=== PATIENT | female | born 2000 | race Caucasian/White ===

== ENCOUNTER 2025-08-06 15:20 | Outpatient (OUT) | payer OTHER, SELFPAY ==
--- OUTSIDE RECORDS SUMMARY | 2025-07-23 09:00 | XMS_ITS | Encounter Summary ---
Author Organization [facility] Address [address] [place] [address] Care Team Providers Care Change Control Manager Name Role Phone Geni Piedra DO Primary Care Provider [phone] Encounter Details Date Type Department Care Team (Latest Contact Info) Description 07/23/2025 9:00 AM EDT Ancillary Procedure [facility] [address] [place] [address] Size of fetus inconsistent with dates in second trimester ([facility]) Social History Tobacco Use Types Packs/Day Years Used Date Smoking Tobacco: Never Alcohol Use Standard Drinks/Week Comments Not Currently 0 (1 standard drink = 0.6 oz pure alcohol) caffeine intake: 1 coffee/day Estimated Date of Delivery Comme nts Yes 10/02/2025 Based on last me nstrual period of 12/26/2024 Sex and Gender Information Value Date Recorded Sex Assigned at Not on file Legal Sex Female 6:52 PM EDT Gender Identity Not on file Sexual Orientation Not on file Occupation Industry Job Start Date Job End Date Not on file Not on file Not on file Not on file documented as of this encounter Plan of Treatment Upcoming Encounters Date Type Department Care Team (Late st Contact Info) Description 08/20/2025 1:50 PM EDT Routine [facility] [address] [place] [address] Flavia Zhu, MARCUS [address] [place] [address] 09/04/2025 1:00 PM EDT Ancillary Procedure [facility] [address] [place] [address] documented as of this encounter Goals Goal Patient Goal Type Associated Problems Recent Progress Patient-Stated? Author Reminders Care Plan OB Reminders Alexandra Means RN documented as of this encounter Procedures Procedure Name Priority Date/Time Associated Diagnosis Comments US OB FOLLOW UP TRANSABDOMINAL APPROACH Routine 07/23/2025 9:18 AM EDT Size of fetus inconsistent with dates in second trimester ([facility]) documented in this encounter Results * US OB follow up transabdominal approach (07/23/2025 9:18 AM EDT) Anatomical Region Laterality Modality Body Ultrasound 07/24/2025 10:5 2 AM EDT Impressions 07/24/2025 11:40 AM EDT Single, live intrauterine , current sonographic age of 30 weeks and 6 days, with an estimated date of delivery of September 25, 2025. * Estimated Weight (g) by Percentile is based upon an accurate estimated age based on last menstrual period. TRANSCRIBED BY: ELECTRONICALLY SIGNED BY: Joel Coronado MD Narrative 07/24/2025 11:40 AM EDT FINDINGS: A single, live intrauterine is present with normal cardiac rate of 137 beats per minute. Normal activity and amniotic fluid volume. Amniotic fluid index is 12 cm. Morphology is grossly normal. The cervix is not seen due to positioning. The current sonographic age is 30 weeks and 6 days, based on the following measurements: BPD 7.8 cm (31 weeks, 1 day) Head Circumference 28.0 cm (30 weeks, 4 days) Abdominal Circumference 26.6 cm (30 weeks, 5 days) Femur Length 5.9 cm (30 weeks, 6 days) Presentation Cephalic Weight (g) by Percentile 70.0 % * These measurements result in an estimated date of delivery of September 25, 2025. The current estimated weight is 1635 grams (3 pounds, 10 ounces). Procedure Note Joel Coronado MD - 07/24/2025 FINDINGS: A single, live intrauterine is present with normal cardiacrate of 137 beats per minute. Normal activity and amniotic fluidvolume. Amniotic fluid index is 12 cm. Morphology is grossly normal. Thecervix is not seen due to positioning. The current sonographic ageis 30 weeks and 6 days, based on the following measurements: BPD 7.8 cm (31 weeks, 1 day) Head Circumference 28.0 cm (30 weeks, 4 days) Abdominal Circumference 26.6 cm (30 weeks, 5 days) Femur Length 5.9 cm (30 weeks, 6 days) Presentation Cephalic Weight (g) by Percentile 70.0 % * These measurements result in an estimated date of delivery of September. The current estimated weight is 1635 grams (3 pounds, 10ounces). IMPRESSION: Single, live intrauterine , current sonographic age of 30 weeksand 6 days, with an estimated date of delivery of September 25, 2025. * Estimated Weight (g) by Percentile is based upon an accurateestimated age based on last menstrual period. TRANSCRIBED BY: ELECTRONICALLY SIGNED BY: Joel Coronado MD us Eva FABIAN IMPolly OB US PROCEDURES Final Resul t documented in this encounter Visit Diagnoses Diagnosis Size of fetus inconsistent with dates in second trimester ([facility]) documented in this encounter Additional Health Concerns Active Problems Noted Date Diagnosed Date OB Reminders 01/29/2025 documented as of this encounter Care Teams Change Control Manager Relationship Specialty Start Date End Date Geni Piedra DO [address] [place] [address] PCP - General Internal Medicine 06/07/25 documented as of this encounter
--- OUTSIDE RECORDS SUMMARY | 2025-07-23 09:50 | XMS_ITS | Encounter Summary ---
Author Organization [facility] Address [address] [place] [address] Care Team Providers Care Flaking Roll Operator Name Role Phone DamionGeni bocanegra Primary Care Provider [phone] Reason for Visit * Reason Comments Routine Visit Encounter Details Date Type Department Care Team (Late st Contact Info) Description 07/23/2025 9:50 AM EDT Routine [facility] [place] [facility] [address] [place] [address] Flavia Zhu, MARCUS [address] [place] [address] Third trimester ([facility]); 29 weeks gestation of ([facility]) Social History Tobacco Use Types Packs/Day Years [...] on file documented as of this encounter Last Filed Vital Signs Vital Sign Reading Time Taken Comments Blood Pressure 110/68 07/23/2025 9:23 AM EDT Pulse - - Temperature - - Respiratory Rate - - Oxygen Saturation - - Inhaled Oxygen Concentration - - Weight 55.8 kg (123 lb) 07/23/2025 9:23 AM EDT Height - - Body Mass Index 20.47 06/30/2021 12:00 PM EDT documented in this encounter Progress Notes * Hedy Nam, VIROLOGIST - 07/23/2025 9:50 AM EDT Reason for Appointment: Patient ID: Renny Kowalski is a 24 y.o. female who presents for Routine Visit Patient presents today for Return OB appointment. MEDICATIONS Current Outpatient Medications Medication Instructions ondansetron (ZOFRAN) 4 mg, Every 6 hours MV-Min-Fe Fum-FA-DHA ( 1 PO) 1 tablet, Daily ALLERGIES No Known Allergies PROBLEMS Active Ambulatory Problems Diagnosis Date Noted No Active Ambulatory Problems Resolved Ambulatory Problems Diagnosis Date Noted No Resolved Ambulatory Problems Past Medical History: Diagnosis Date Vaccine for VZV (varicella-zoster virus) HISTORY PAST MEDICAL HISTORY SOCIAL HISTORY Past Medical History: Diagnosis Date Vaccine for VZV (varicella-zoster virus) Social History Tobacco Use Smoking status: Never Smokeless tobacco: Not on file Vaping Use Vaping status: Never Used Substance Use Topics Alcohol use: Not Currently Comment: caffeine intake: 1 coffee/day Drug use: Never FAMILY HISTORY Family History Problem Relation Name Age of Onset No Known Problems Mother No Known Problems Father No Known Problems Sister No Known Problems Daughter Melanoma Maternal Grandfather Diabetes Paternal Grandfather SURGICAL HISTORY Past Surgical History: Procedure Laterality Date TONSILLECTOMY [age] y.o. REVIEW OF SYSTEMS Review of Systems: Review of Systems Constitutional: Negative. HENT: Negative. Eyes: Negative. Respiratory: Negative. Cardiovascular: Negative. Gastrointestinal: Negative. Genitourinary: Negative. Musculoskeletal: Negative. Skin: Negative. Neurological: Negative. All other systems reviewed and are negative. Hematological: Negative. Endocrine: Negative. Allergic/Immunologic: Negative. OBJECTIVE Objective: Physical Exam Constitutional: Appearance: Normal appearance. She is well-developed. Cardiovascular: Rate and Rhythm: Normal rate and regular rhythm. Pulmonary: Effort: Pulmonary effort is normal. Breath sounds: Normal breath sounds. Abdominal: General: Bowel sounds are normal. There is no distension. Palpations: Abdomen is soft. Tenderness: There is no abdominal tenderness. There is no guarding or rebound. Musculoskeletal: General: No swelling. Normal range of motion. Right lower leg: No edema. Left lower leg: No edema. Neurological: Mental Status: She is alert and oriented to person, place, and time. Skin: General: Skin is warm and dry. Psychiatric: Mood and Affect: Mood normal. Behavior: Behavior normal. Vitals and nursing note reviewed. Exam conducted with a manager billing present. Vitals: Estimated body mass index is 20.47 kg/m?? as calculated from the following: Height as of 06/30/21: 5' 5 . Weight as of this encounter: 123 lb. BP: 110/68 Patient's last menstrual period was 12/26/2024. ASSESSMENT & PLAN ICD-10-CM 1. Third trimester ([facility]) Z34.93 POCT urinalysis dipstick manually resulted 2. 29 weeks gestation of ([facility]) Z3A.29 Patient presents today for a routine obstetrics appointment. Patient is currently 29w6d with a Estimated Date of Delivery: 10/02/25. Patient had follow up scan done prior to appointment today. Patient has no complaints at this time. Patient to return to clinic in 2-3 weeks. Patient voiced occasional heartburn and nausea. Patient voiced she did have vomiting yesterday and has medication at home. Questions in regards to RSV vaccine. Will discuss with Dr. Nolen and reach back out to patient. Documented by Hedy Nam LPN on behalf of: Flavia Zhu NP documented in this encounter Plan of Treatment Upcoming Encounters Date Type Department Care Team (Late st Contact Info) Description 08/20/2025 1:50 PM EDT Routine [facility] [address] [place] [address] Flavia Zhu NP [address] [place] [address] 09/04/2025 1:00 PM EDT Ancillary Procedure [facility] [address] [place] [address] documented as of this encounter Goals Goal Patient Goal Type Associated Problems Recent Progress Patient-Stated? Author Reminders Care Plan OB Reminders No Alexandra Wang RN documented as of this encounter Procedures Procedure Name Priority Date/Time Associated Diagnosis Comments POCT URINALYSIS DIPSTICK Routine 07/23/2025 9:27 AM EDT Third trimester ([facility]) documented in this encounter Results * POCT urinalysis dipstick manually resulted (07/23/2025 9:27 AM EDT) Color, UA Yellow Clarity, UA Clear Glucose, UA Negative Negative - 2000(110) ++++ mg/dL Bilirubin, UA Negative Negative - 4(70) +++ mg/dL Ketones, UA Negative Negative - 160(16) ++++ mg/dL Spec Grav, UA 1.015 1 - 1.03 Blood, UA Negative Negative - 50 Zhen/mcL pH, UA 6.0 5 - 9 Protein, UA Negative Negative - 2000(20) ++++ mg/dL Urobilinogen, UA 0.2 0.2 - 12 mg/dL Leukocytes, UA Negative Negative - 500+++ Gucci/mcL Nitrite, UA Negative Negative - Positive Urine 07/23/2025 9:27 AM EDT Flavia Zhu NP POINT OF CARE TEST ENTER/EDIT ORDERABLES Final Result documented in this encounter Visit Diagnoses Diagnosis Third trimester ([facility]) state, incidental 29 weeks gestation of ([facility]) documented in this encounter Additional Health Concerns Active Problems Noted Date Diagnosed Date OB Reminders 01/29/2025 documented as of this encounter Care Teams Flaking Roll Operator Relationship Specialty Start Date End Date Geni Piedra DO [address] [place] [address] PCP - General Internal Medicine 06/07/25 documented as of this encounter
--- OUTSIDE RECORDS SUMMARY | 2025-08-06 14:20 | XMS_ITS | Encounter Summary ---
Author Organization [facility] Address [address] [place] [address] Care Team Providers Care Medical Data Entry Clerk Name Role Phone JeromeGeni carias Primary Care Provider [phone] Reason for Visit * Reason Comments Routine Visit Encounter Details Date Type Department Care Team (Latest Contact Info) Description 08/06/2025 2:20 PM EDT Routine [facility] [place] [facility] [address] [place] [address] Mitchel Nolen DO [address] [place] [address] size inconsistent with dates ([facility]) (Primary Dx); Third trimester ([facility]); 31 weeks gestation of ([facility]) Social History Tobacco Use Types Packs/Day Years [...] Sign Reading Time Taken Comments Blood Pressure 110/64 08/06/2025 2:39 PM EDT Pulse - - Temperature - - Respiratory Rate - - Oxygen Saturation - - Inhaled Oxygen Concentration - - Weight 57.2 kg (126 lb) 08/06/2025 2:39 PM EDT Height - - Body Mass Index 20.97 06/30/2021 12:00 PM EDT documented in this encounter Progress Notes * Flavia Zhu NP - 08/06/2025 2:20 PM EDT Reason for Appointment: Patient ID: Renny [...] nursing note reviewed. Exam conducted with a body former present. Vitals: Estimated body mass index is 20.97 kg/m?? as calculated from the following: Height as of 06/30/21: 5' 5 . Weight as of this encounter: 126 lb. BP: 110/64 Patient's last menstrual period was 12/26/2024. ASSESSMENT & PLAN ICD-10-CM 1. Third trimester ([facility]) Z34.93 POCT urinalysis dipstick manually resulted 2. 31 weeks gestation of ([facility]) Z3A.31 Return OB: Patient presents today for a routine obstetrics appointment. Patient is currently 31w6d . Patient states she is doing well but has complaints of being tired due to current . Patient has verbalizes frequent movement. labor precautions was discussed/given and patient was instructed to perform kick counts three times a day. Orders Placed This Encounter Procedures POCT urinalysis dipstick manually resulted Follow Up: Patient reports increased pressure and decreased movement. Plan for cervical length and NST and BPP today. Patient is to return to office in 2 week for routine OB appointment. Documented by Flavia Zhu NP on behalf of: Mitchel Nolen DO documented in this encounter Plan of Treatment Upcoming Encounters Date Type Department Care Team (Late st Contact Info) Description 08/20/2025 1:50 PM EDT Routine [facility] [address] [facility] [place] [address] Flavia Zhu NP [address] [place] [address] 09/04/2025 1:00 PM EDT Ancillary Procedure [facility] [address] [place] [address] Scheduled Orders Name Type Priority Associated Diagnoses Orde r Schedule US OB follow up transabdominal approach Imaging Routine size inconsistent with dates ([facility]) Expected: 08/06/2025, Expires: 12/06/2025 documented as of this encounter Goals Goal Patient Goal Type Associated Problems Recent Progress Patient-Stated? Author Reminders Care Plan OB Reminders No Alexandra Wang RN documented as of this encounter Procedures Procedure Name Priority Date/Time Associated Diagnosis Comments POCT URINALYSIS DIPSTICK Routine 08/06/2025 2:43 PM EDT Third trimester ([facility]) documented in this encounter Results * (ABNORMAL) POCT urinalysis dipstick manually resulted (08/06/2025 2:43 PM EDT) Color, UA Yellow Clarity, UA Clear Glucose, UA 1+ Negative - 2000(110) ++++ mg/dL Bilirubin, UA Negative Negative - 4(70) +++ mg/dL Ketones, UA Negative Negative - 160(16) ++++ mg/dL Spec Grav, UA 1.015 1 - 1.03 Blood, UA Negative Negative - 50 Zhen/mcL pH, UA 6.0 5 - 9 Protein, UA Negative Negative - 2000(20) ++++ mg/dL Urobilinogen, UA 1.0 0.2 - 12 mg/dL Leukocytes, UA Negative Negative - 500+++ Gucci/mcL Nitrite, UA Negative Negative - Positive Urine 08/06/2025 2:43 PM EDT Mitchel Nolen DO POINT OF CARE TEST ENTER/EDIT OR DERABLES Final Result documented in this encounter Visit Diagnoses Diagnosis size inconsistent with dates ([facility])- Primary Third trimester ([facility]) state, incidental 31 weeks gestation of ([facility]) documented in this encounter Additional Health Concerns Active Problems Noted Date Diagnosed Date OB Reminders 01/29/2025 documented as of this encounter Care Teams Medical Data Entry Clerk Relationship Specialty Start Date End Date Geni Piedra DO [address] [place] [address] PCP - General Internal Medicine 06/07/25 documented as of this encounter
--- OUTSIDE RECORDS SUMMARY | 2025-08-06 15:29 | XMS_ITS | Encounter Summary ---
Author Organization [facility] Address [address] [place] [address] Care Team Providers Care Boilermaking Supervisor Name Role Phone Geni Piedra Primary Care Provider [phone] Encounter Details Date Type Department Care Team (Late st Contact Info) Description 08/06/2025 Bamboo flowsheet [facility] [address] [place] [address] Mitchel Nolen DO [address] [place], [facility] Social History Tobacco Use Types Packs/Day Years [...] Info) Description 08/20/2025 1:50 PM EDT Routine [facility] [address] [place] [address] Flavia Zhu NP [address] [place] [address] 09/04/2025 1:00 PM EDT Ancillary Procedure [facility] [address] [facility] [place] [address] documented as of this encounter Goals Goal Patient Goal Type Associated Problems Recent Progress Patient-Stated? Author Reminders Care Plan OB Reminders Alexandra Means RN documented as of this encounter Visit Diagnoses Not on filedocumented in this encounter Additional Health Concerns Active Problems Noted Date Diagnosed Date OB Reminders 01/29/2025 documented as of this encounter Care Teams Boilermaking Supervisor Relationship Specialty Start Date End Date Geni Piedra DO [address] [place] [address] PCP - General Internal Medicine 06/07/25 documented as of this encounter
--- OUTSIDE RECORDS SUMMARY | 2025-08-06 15:29 | XMS_ITS | Encounter Summary ---
Author Organization [facility] Address [address], [address] [place] [address] Care Team Providers Care Program Control Analyst Name Role Phone Geni Piedra Primary Care Provider Encounter Details Date Type Department Care Team (Late st Contact Info) Description 02/09/2025 Orders Only [facility] [address] [place] [address] Provider, MD Jeet Social History Tobacco Use Types Packs/Day Years Used Date Smoking Tobacco: Never Passive Smoke Exposure: Yes Smokeless Tobacco: Never Alcohol Use Standard Drinks/Week Comments No 0 (1 standard drink = 0.6 oz pur e alcohol) Overall Financial Resource Strain (CARDIA) Answe r Date Recorded How hard is it for you to pa y for the very basics like food, housing, medical care, and heating? Not hard at all 03/24/2024 PHQ-2 Answer Date Recorded PHQ-9 Total Score 0 03/24/2024 Hunger Vital Sign Answer Date Recorded Within the past 12 months, y ou worried that your food would run out before you got the money to buy more. Never true 03/24/20 24 Within the past 12 months, t he food you bought just didn't last and you didn't have money to get more. Never true 03/24/2024 PRAPARE - Transportation Answer Date Re corded Lack of Transportation (Medical) Not on file 03/24/2024 In the past 12 months, has l ack of transportation kept you from meetings, work, or from getting things needed for daily living? No 03/24/2024 Housing Stability Vital Sign Answer Nathan e Recorded Unable to Pay for Housing in the Last Year Not o n file 03/24/2024 Number of Places Lived in the Last Year Not on f ile 03/24/2024 In the last 12 months, was t here a time when you did not have a steady place to sleep or slept in a senior living (including now)? No 03/24/2024 Food Insecurity Answer Date Recorded Within the past 12 months, y ou worried that your food would run out before you got the money to buy more. 1 03/24/2024 Within the past 12 months, t he food you bought just didn't last and you didn't have money to get more. 1 03/24/2024 Comments Unknown Sex and Gender Information Value Date Recorded Sex Assigned at Female 01/31/2021 10:22 PM EDT Legal Sex Female 10:14 AM EST Gender Identity Female 01/31/2021 10:22 PM EDT Sexual Orientation Straight 01/31/2021 10 :22 PM EDT documented as of this encounter Plan of Treatment Not on file documented as of this encounter Procedures Procedure Name Priority Date/Time Associated Diagnosis Comments LAB RESULT Routine 02/08/2025 6:15 AM EDT documented in this encounter Results * LAB RESULT (02/08/2025 6:15 AM EDT) us Historical Provider CHEMISTRY ORDERABLES Danielle l Result documented in this encounter Visit Diagnoses Not on filedocumented in this encounter Care Teams Program Control Analyst Relationship Specialty Start Date End Date Geni Piedra DO [address] [place] [address] PCP - General 02/03/16 documented as of this encounter
--- OUTSIDE RECORDS SUMMARY | 2025-08-06 15:29 | XMS_ITS | Encounter Summary ---
Author Organization [facility] Address [address], [address] [place] [address] Care Team Providers Care Vp Celebrity Services Name Role Phone Geni Piedra Primary Care Provider Encounter Details Date Type Department Care Team (Late st Contact Info) Description 06/13/2025 Orders Only [facility] [address] [place] [address] Provider, MD Jeet Social History [...] place to sleep or slept in a [facility] (including now)? No 03/24/2024 Food Insecurity Answer [...] Date/Time Associated Diagnosis Comments LAB RESULT Routine 06/13/2025 2:10 PM EDT documented in this encounter Results * LAB RESULT (06/13/2025 2:10 PM EDT) us Historical Provider CHEMISTRY ORDERABLES Danielle l Result documented in this encounter Visit Diagnoses Not on filedocumented in this encounter Care Teams Vp Celebrity Services Relationship Specialty Start Date End Date Geni Piedra DO [address] [place] [address] PCP - General 02/03/16 documented as of this encounter
--- OUTSIDE RECORDS SUMMARY | 2025-08-06 15:29 | XMS_ITS | Encounter Summary ---
Author Organization [facility] Address [address], [address] [place] [address] Care Team Providers Care Crew Boat Operator Name Role Phone Geni Piedra Primary Care Provider Encounter Details Date Type Department Care Team (Late st Contact Info) Description 02/21/2025 Orders Only [facility] [address] [place] [address] Provider, MD Jeet Social History [...] place to sleep or slept in a assisted (including now)? No 03/24/2024 Food Insecurity Answer [...] Procedure Name Priority Date/Time Associated Diagnosis Comments HM PAP SMEAR Routine 02/14/2025 6:25 AM EDT documented in this encounter Results * HM PAP SMEAR (02/14/2025 6:25 AM EDT) Historical Provider HEALTH MAINTENANCE Final Result documented in this encounter Visit Diagnoses Not on filedocumented in this encounter Care Teams Crew Boat Operator Relationship Specialty Start Date End Date Geni Piedra DO [address] [place] [address] PCP - General 02/03/16 documented as of this encounter
--- OUTSIDE RECORDS SUMMARY | 2025-08-06 15:30 | XMS_ITS | Encounter Summary ---
Author Organization [facility] Address [address] [place] [address] Care Team Providers Care Gunite Mixer Name Role Phone Geni Piedra DO Primary Care Provider [phone] Encounter Details Date Type Department Care Team (Late st Contact Info) Description 07/23/2025 Telephone [facility] [address] [place] [address] [place] [address] Hedy Nam LPN Social History Tobacco Use Types Packs/Day Years [...] on file documented as of this encounter Miscellaneous Notes * Telephone Encounter - Hedy Nam LPN - 07/23/2025 10:05 AM EDT Will discuss with Dr. Nolen and reach back out to patient. documented in this encounter Plan of Treatment Upcoming Encounters Date Type Department Care Team (Late st Contact Info) Description 08/20/2025 1:50 PM EDT Routine [facility] [address] [facility] [place] [address] Flavia Zhu, MARCUS [address] [facility] [place] [address] 09/04/2025 1:00 PM EDT Ancillary Procedure [facility] [address] [facility] [place] [address] documented as of this encounter Goals Goal Patient Goal Type Associated Problems Recent Progress Patient-Stated? Author Reminders Care Plan OB Reminders Alexandra Means RN documented as of this encounter Visit Diagnoses Not on filedocumented in this encounter Additional Health Concerns Active Problems Noted Date Diagnosed Date OB Reminders 01/29/2025 documented as of this encounter Care Teams Gunite Mixer Relationship Specialty Start Date End Date Geni Piedra DO [address] [place] [address] PCP - General Internal Medicine 06/07/25 documented as of this encounter
--- OUTSIDE RECORDS SUMMARY | 2025-08-06 15:30 | XMS_ITS | Clinical Summary ---
Author Organization [facility] Address [address] [place] [address] Care Team Providers Care Facing Grinder Name Role Phone Geni Piedra Primary Care Provider [phone] Allergies No known active allergies Medications ondansetron (Zofran) 4 MG tablet Take 4 mg by mouth every 6 (six) hours 02/28/2025 Active MV-Min-Fe Fum-FA-DHA ( 1 PO) Take 1 tablet by mouth Daily Active magnesium oxide (Mag-Ox) 400 MG tabletIndication s:Migraine without aura and without status migrainosus, not intractable Take 1 tablet (400 mg) by mouth Daily 30 tablet 6 06/07/2025 07/07/20 25 Encounters Date Type Department Care Team Description 08/06/2025 2:20 [place] [address] Mitchel Nolen DO size inconsistent with dates ([facility]) (Primary Dx); Third trimester ([facility]); 31 weeks gestation of ([facility]) 08/06/2025 [place] [address] Mitchel Nolen DO 07/25/2025 [place] [address] Mitchel Nolen DO 07/23/2025 9:50 AM EDT Routine [facility] [address] [place] [address] Flavia Zhu NP Third trimester ([facility]); 29 weeks gestation of ([facility]) 07/23/2025 9:00 AM EDT Ancillary Procedure [facility] [address] [facility] [place] [address] Size of fetus inconsistent with dates in second trimester ([facility]) 07/23/2025 Telephone [facility] [address] [facility] [place] [address] Hedy Nam LPN 07/09/2025 9:30 AM EDT Routine [facility] [address] [facility] [place] [address] Eva Degroot PA Size of fetus inconsistent with dates in second trimester ([facility]) (Primary Dx); Second trimester ([facility]); 27 weeks gestation of ([facility]) 07/09/2025 Bamboo flowsheet [facility] [address] [facility] [place] [address] Eva Degroot PA 06/28/2025 Abstract [facility] [address] [facility] [place] [address] Mitchel Nolen DO 06/28/2025 Telephone [facility] [address] [facility] [place] [address] Maribeth Li, GUSTAVO 06/07/2025 9:10 AM EDT Initial [facility] [address] [place] [address] Mitchel Nolen, DO GA: 23w2d 06/07/2025 Abstract [facility] [address] [facility] [place] [address] Mitchel Nolen DO from Last 3 Months Family History Medical History Relation Name Comments No Known Problems Daughter No Known Problems Father Melanoma Maternal Grandfather No Known Problems Mother Diabetes Paternal Grandfather No Known Problems Sister Relation Name Status Comments Daughter Father Alive Maternal Grandfather Mother Alive Paternal Grandfather Sister x1 Social History Tobacco Use Types Packs/Day Years Used Date Smoking Tobacco: Never Tobacco Cessation:Counseling Given: Not Answered Alcohol Use Standard Drinks/Week Comments Not Currently [...] file Not on file Not on file Last Filed Vital Signs Vital Sign Reading Time Taken Comments Blood Pressure 110/64 08/06/2025 2:39 PM EDT Pulse - - Temperature - - Respiratory Rate - - Oxygen Saturation - - Inhaled Oxygen Concentration - - Weight 57.2 kg (126 lb) 08/06/2025 2:39 PM EDT Height 165.1 cm (5' 5 ) 06/30/2021 12:00 PM EDT Body Mass Index 20.97 06/30/2021 12:00 PM EDT Plan of Treatment Upcoming Encounters Date Type Department Care Team (Late st Contact Info) Description 08/20/2025 1:50 PM EDT Routine [facility] [address] [place] [address] Flavia Zhu, MARCUS [address] [place] [address] 09/04/2025 1:00 PM EDT Ancillary Procedure [facility] [address] [place] [address] Goals Goal Patient Goal Type Associated Problems Recent Progress Patient-Stated? Author Reminders Care Plan OB Reminders No Alexandra Wang RN Procedures Procedure Name Priority Date/Time Associated Diagnosis Comments POCT URINALYSIS DIPSTICK Routine 08/06/2025 2:43 PM EDT Third trimester ([facility]) POCT URINALYSIS DIPSTICK Routine 07/23/2025 9:27 AM EDT Third trimester ([facility]) US OB FOLLOW UP TRANSABDOMINAL APPROACH Routine 07/23/2025 9:18 AM EDT Size of fetus inconsistent with dates in second trimester ([facility]) POCT URINALYSIS DIPSTICK Routine 07/09/2025 9:57 AM EDT Second trimester ([facility]) POCT URINALYSIS DIPSTICK Routine 06/07/2025 10:20 AM EDT 23 weeks gestation of ([facility]) Second trimester ([facility]) from Last 3 Months Results * (ABNORMAL) POCT urinalysis dipstick manually resulted (08/06/2025 2:43 PM EDT) Only the most recent of4 resultswithin the time period is included. Color, UA Yellow Clarity, UA Clear Glucose, [...] CARE TEST ENTER/EDIT OR DERABLES Final Result * US OB follow up transabdominal approach [...] BY: Joel Coronado MD us Eva FABIAN IMG OB US PROCEDURES Final Resul t from Last 3 Months Additional Health Concerns Active Problems Noted Date Diagnosed Date OB Reminders 01/29/2025 Insurance [employer] Care Teams Facing Grinder Relationship Specialty Start Date End Date Geni Piedra DO [address] [place] [address] PCP - General Internal Medicine 06/07/25
--- OUTSIDE RECORDS SUMMARY | 2025-08-06 15:30 | XMS_ITS | Encounter Summary ---
Author Organization [facility] Address [address] [place] [address] Care Team Providers Care Advice Clerk Name Role Phone Geni Piedra Primary Care Provider [phone] Encounter Details Date Type Department Care Team (Late st Contact Info) Description 06/07/2025 Abstract [facility] [address] [place] [address] Mitchel Nolen DO [address] [place], [facility] Social History Tobacco Use Types Packs/Day Years [...] EDT Routine [facility] [address] [place] [address] Flavia Zhu NP [address] [place] [address] 09/04/2025 1:00 PM EDT Ancillary Procedure [facility] [address] [place] [address] documented as of this encounter Goals Goal Patient Goal Type Associated Problems Recent Progress Patient-Stated? Author Reminders Care Plan OB Reminders Alexandra Means RN documented as of this encounter Visit Diagnoses Not on filedocumented in this encounter Additional Health Concerns Active Problems Noted Date Diagnosed Date OB Reminders 01/29/2025 documented as of this encounter Care Teams Advice Clerk Relationship Specialty Start Date End Date Geni Piedra DO [address] [place] [phone] PCP - General Internal Medicine 06/07/25 documented as of this encounter
--- OUTSIDE RECORDS SUMMARY | 2025-08-06 15:30 | XMS_ITS | Encounter Summary ---
Author Organization [facility] Address [address] [place] [address] Care Team Providers Care Honey Grader And Blender Name Role Phone Geni Piedra Primary Care Provider Encounter Details Date Type Department Care Team (Late st Contact Info) Description 07/25/2025 Abstract [facility] [address] [place] [address] Mitchel Nolen DO [address] [place], [facility] Social History Tobacco Use Types Packs/Day Years [...] EDT Routine [facility] [address] [place] [address] Flavia Zhu NP [address] [place] [address] 09/04/2025 1:00 PM EDT Ancillary Procedure [facility] [address] [place] [address] documented as of this encounter Goals Goal Patient Goal Type Associated Problems Recent Progress Patient-Stated? Author Reminders Care Plan OB Reminders Alexandra Means RN documented as of this encounter Visit Diagnoses Not on filedocumented in this encounter Additional Health Concerns Active Problems Noted Date Diagnosed Date OB Reminders 01/29/2025 documented as of this encounter Care Teams Honey Grader And Blender Relationship Specialty Start Date End Date Geni Piedra DO [address] [place] [address] PCP - General Internal Medicine 06/07/25 documented as of this encounter
--- OUTSIDE RECORDS SUMMARY | 2025-08-06 15:30 | XMS_ITS | Encounter Summary ---
Author Organization [facility] Address [address] [place] [address] Care Team Providers Care Compliance Representative Dealer Name Role Phone Geni Piedra Primary Care Provider [phone] Encounter Details Date Type Department Care Team (Late st Contact Info) Description 06/28/2025 Abstract [facility] [address] [place] [address] Mitchel Nolen DO [address] [place], [facility] Social History Tobacco Use Types Packs/Day Years [...] EDT Routine [facility] [address] [place] [address] Flavia Zhu NP [address] [place] [address] 09/04/2025 1:00 PM EDT Ancillary Procedure [facility] [address] [place] [address] documented as of this encounter Goals Goal Patient Goal Type Associated Problems Recent Progress Patient-Stated? Author Reminders Care Plan OB Reminders Alexandra Means RN documented as of this encounter Visit Diagnoses Not on filedocumented in this encounter Additional Health Concerns Active Problems Noted Date Diagnosed Date OB Reminders 01/29/2025 documented as of this encounter Care Teams Compliance Representative Dealer Relationship Specialty Start Date End Date Geni Piedra DO [address] [place] [address] PCP - General Internal Medicine 06/07/25 documented as of this encounter
--- NOTE | 2025-08-06 15:38 | US_ITS ---
[address] [address] Patient Name: MAURICIO TERRAZAS MRN: [id number] date: 2000 Sex: F Assigned Patient Location: [facility] Current Patient Location: [facility] Accession/Order Number: [id number] Exam Date: 08/06/2025 16:27 Report Date: 08/06/2025 17:26 At the request of: JACOB TREVINO DO Procedure: US OB cervical length OB ULTRASOUND CERVICAL LENGTH INDICATION: Decreased movement x1 day COMPARISON: None FINDINGS: Within the uterus, there is a single live intrauterine with heart rate 134 beats per minutes. somatic motion is documented by the bulker. Cephalic position with longitudinal lie. Amniotic fluid 10.8 cm which is between the 5th and 95th percentile Cervical length 3.1 cm, closed. US/US OB cervical length IMPRESSION: Single live intrauterine with closed cervix Impression dictated by: Elias Stanley M.D. 08/06/2025 5:26 PM Dictation Location: [place] [address] Electronically authenticated by: [id number] Y Date: 08/06/2025 17:26
--- NOTE | 2025-08-06 15:38 | US_ITS ---
[place] [address] Patient Name: MAURICIO TERRAZAS MRN: [id number] date: 2000 Sex: F Assigned Patient Location: [facility] Current Patient Location: Accession/Order Number: [id number] Exam Date: 08/06/2025 16:27 Report Date: 08/06/2025 17:27 At the request of: JACOB TREVINO DO Procedure: US OB BPP w non-stress Ultrasound biophysical profile INDICATION: Decreased motion for one day COMPARISON: Cervical length ultrasound 08/06/2025 FINDINGS/IMPRESSION: 8 out of 8 score biophysical profile. Amniotic fluid volume 10.8 cm. Heart rate 1 34 bpm Impression dictated by: Elias Stanley M.D. 08/06/2025 5:27 PM Dictation [facility] Electronically authenticated by: [id number] Y Date: 08/06/2025 17:27
[2025-08-06 15:44] VITALS: BP 119/62; PULSE 80
== END 2025-08-06 16:58 | disposition home or self-care (01) ==
LOC: FBC 08-09 12:42 → FBCO 08-09 12:42
PROVIDERS: PCP Student in an Organized Health Care Education/Training Program; Visit Provider Obstetrics & Gynecology
DX: O36.8130 Decreased fetal movements, third trimester, not applicable or unspecified (principal)
CPT/HCPCS: 76817; 76818

== ENCOUNTER 2025-09-04 18:26 | Outpatient (REF) | payer OTHER, SELFPAY ==
--- OUTSIDE RECORDS SUMMARY | 2025-09-04 13:00 | XMS_ITS | Encounter Summary ---
Author Organization [facility] Address [address] [place] [address] Care Team Providers Care Instrument Lens Grinder Name Role Phone Geni Piedra Primary Care Provider [phone] Mitchel Nolen DO Unavailable Encounter Details DateTypeDepartmentCare Team (Latest Contact Info)Ourzvmostap50/21/2025 1:00 PM EDTAncillary Procedure [facility] [address] [place] [address] size inconsistent with dates ([facility]) Social History Tobacco UseTypesPacks/DayYears UsedDateSmoking Tobacco: NeverAlcohol UseStandard Drinks/WeekCommentsNot Currently0 (1 standard drink = 0.6 oz pure alcohol) caffeine intake: 1 coffee/dayEstimated Date of DeliveryCommentsYes 5Based on last menstrual period of 12/26/2024Sex and Gender Information ValueDate RecordedSex Assigned at BirthNot on fileLegal UrzOemksa10/15/2023 6:52 PM EDTGender IdentityNot on fileSexual OrientationNot on fileOccupationIndustry Job Start DateJob End DateNot on fileNot on fileNot on fileNot on filedocumented as of this encounter Plan of Treatment DateTypeDepartmentCare Team (Latest Contact Info)Xqtkrrwcyfd83/29/2025 2:50 PM EDTRoutine [facility] [address] [place] [address] Eva Degroot PA [address] [place] [address] NameTypePriorityAssociated DiagnosesDate/TimeUS OB follow up transabdominal approachImagingRoutine size inconsistent with dates ([facility]) 09/04/2025 1:24 PM EDTdocumented as of this encounter Goals GoalPatient Goal TypeAssociated ProblemsRecent ProgressPatient-Stated?Author Reminders Care PlanOB RemindersAlexandra Lizama RNdocumented as of this encounter Visit Diagnoses Diagnosis size inconsistent with dates ([facility]) documented in this encounter Additional Health Concerns Active ProblemsNoted DateDiagnosed DateOB Hbtdfuhih02/17/2025 documented as of this encounter Care Teams Team MemberRelationshipSpecialtyStart DateEnd Date Geni Piedra DO [address] [place] [phone] PCP - GeneralInternal Medicine06/07/25 Mitchel Nolen DO [address] [place] [address] Referring PhysicianObstetrics and Gynecology08/08/25documented as of this encounter
--- OUTSIDE RECORDS SUMMARY | 2025-09-04 13:30 | XMS_ITS | Encounter Summary ---
Author Organization [facility] Address [address] [place] [address] Care Team Providers Care Dental Professional Name Role Phone DamionGeni bocanegra Primary Care Provider Mitchel Nolen DO Unavailable Reason for Visit * ReasonCommentsRoutine Visit Encounter Details DateTypeDepartmentCare Team (Latest Contact Info)Uydpoolyhll86/21/2025 1:30 PM EDTRoutine [facility] [address] [place] [phone] Mitchel Nolen DO [address] Bonnie Alicia, [facility]11 Third trimester ([facility]); 36 weeks gestation of ([facility]); Exposure to STD Social History Tobacco UseTypesPacks/DayYears UsedDateSmoking Tobacco: NeverAlcohol UseStandard Drinks/WeekCommentsNot Currently0 (1 standard drink = 0.6 oz pure alcohol) caffeine intake: 1 coffee/dayEstimated Date of DeliveryCommentsYes 5Based on last menstrual period of 12/26/2024Sex and Gender Information ValueDate RecordedSex Assigned at BirthNot on fileLegal HuoWfrnwv82/15/2023 6:52 PM EDTGender IdentityNot on fileSexual OrientationNot on fileOccupationIndustry Job Start DateJob End DateNot on fileNot on fileNot on fileNot on filedocumented as of this encounter Last Filed Vital Signs Vital SignReadingTime TakenCommentsBlood Kyqiurnj462/7009/04/2025 1:43 PM EDT Pulse--Temperature--Respiratory Rate--Oxygen Saturation--Inhaled Oxygen Concentration--Hfcmjy72.3 kg (133 lb)09/04/2025 1:43 PM EDTHeight--Body Mass Index22.1308 12:00 PM EDTdocumented in this encounter Plan of Treatment DateTypeDepartmentCare Team (Latest Contact Info)Poxvaucyyrr57/29/2025 2:50 PM EDTRoutine [facility] [address] [place] [address] Eva Degroot PA [address] [place], [place] [phone] NameTypePriorityAssociated DiagnosesOrder ScheduleCULTURE, GROUP B STREP WITH SUSCEPTIBLITYLabRoutine Third trimester ([facility]) Expected: 09/04/2025, Expires: 09/04/2026documented as of this encounter Goals GoalPatient Goal TypeAssociated ProblemsRecent ProgressPatient-Stated?Author Reminders Care PlanOB Alexandra Hooker RNdocumented as of this encounter Procedures Procedure NamePriorityDate/TimeAssociated DiagnosisCommentsPOCT URINALYSIS VTWDMAOCWyxjouy71/21/2025 1:49 PM EDT 36 weeks gestation of ([facility]) PAP TEST, EXEXLHUJWpkeoxu58/02/2025 12:00 AM EDTdocumented in this encounter Results [...] this encounter Visit Diagnoses Diagnosis Third trimester ([facility]) state, incidental 36 weeks gestation of ([facility]) Exposure to STD documented in this encounter Additional Health Concerns Active ProblemsNoted DateDiagnosed DateOB Qzeqftarl93/17/2025 documented as of this encounter Care Teams Team MemberRelationshipSpecialtyStart DateEnd Date Geni Piedra DO [address] [place] [phone] PCP - GeneralInternal Medicine06/07/25 Mitchel Nolen DO [address] [place] [address] [place] [address] Referring PhysicianObstetrics and Gynecology08/08/25documented as of this encounter
--- OUTSIDE RECORDS SUMMARY | 2025-09-04 18:31 | XMS_ITS | Clinical Summary ---
Author Organization [facility] Address [address], [address] [place] [address] Care Team Providers Care Masonry Contractor Name Role Phone Geni Piedra Primary Care Provider Allergies No known active allergies Medications MedicationSigDispense QuantityRefillsLast FilledStart DateEnd DateStatus Vit-Fe Fumarate-FA ( MULTIVITAMINS) 28-0.8 MG TABS Take by mouth11/11/2022ctive SUMAtriptan (IMITREX) 25 MG tablet take 1 tablet by mouth for 1 dose if needed for migraines may repeat in 1 to 2 hours if needed 9 tablet ctive Active Problems ProblemNoted DateDiagnosed DateMigraine without aura and without status migrainosus, not ygyipuvvydk50/10/9029Pqpvpwqxmpv75/23/2019 Resolved Problems ProblemNoted DateDiagnosed DateResolved DateLoss of smell Wwqcwqc931387Ejuscbufwomuxox88/11/202007/22/2020Muscle weakness Abdominal painFrequent headaches ports nlakkdsj04 Encounters DateTypeDepartmentCare VexnWshvmxttjno07/30/2025Orders Only [facility] [address] [place] [address] Provider, MD Jeet from Last 3 Months Immunizations ImmunizationAdministration DatesNext DueDTaP ilztxym6501/31/2003,06/20/2002, 02/20/2002,2001DTaP, DAPTACEL, (age 6w-6y), IM, 0.5mL04/26/2007Hep B, ENGERIX-B, RECOMBIVAX-HB, (age - 19y), IM, 0.5mL06/20/2002,2001, 2001Hib PRP-OMP, PEDVAXHIB, (age 2m-6y, Adlt Risk), IM, 0.5mL01/31/2003Hib PRP-T, ACTHIB (age 2m-5y, Adlt Risk), HIBERIX (age 6w-4y, Adlt Risk), IM, 0.5mL 02/20/2002,2001Hib xbvojdh3906/20/2002,02/20/2002,2001Influenza 11/24/2012Influenza Virus Kkkstsl3312/12/2013Influenza, FLUARIX, FLULAVAL, FLUZONE (age 6 mo+) and AFLURIA, (age 3 y+), Quadv PF, 0.5mL11/02/2017MMR, PRIORIX, M-M-R II, (age 12m+), SC, 0.5mL04/26/2007,01/31/2003Meningococcal ACWY, MENACTRA (MenACWY-D), (age 9m-55y), IM, 0.5mL06/25/2019Poliovirus, IPOL, (age 6w+), SC/IM, 0.5mL04/26/2007,06/20/2002,02/20/2002,2001TDaP, ADACEL (age 10y- 64y), BOOSTRIX (age 10y+), IM, 0.5mL05/14/2014Varicella, VARIVAX, (age 12m+), SC, 0.5mL04/26/2007,01/31/2003 Family History RelationNameStatusCommentsFatherAliveMotherAliveSisterAlive Social History Tobacco UseTypesPacks/DayYears UsedDateSmoking Tobacco: NeverPassive Smoke Exposure: YesSmokeless Tobacco: NeverAlcohol UseStandard Drinks/WeekCommentsNo0 (1 standard drink = 0.6 oz pure alcohol)Overall Financial Resource Strain (CARDIA)AnswerDate RecordedHow hard is it for you to pay for the very basics like food, housing, medical care, and heating?Not hard at all03/24/2024HQ-2 AnswerDate RecordedPHQ-9 Total Zdqpq890Hunger Vital SignAnswerDate RecordedWithin the past 12 months, you worried that your food would run out before you got the money to buymore.Never true03/24/2024Within the past 12 months, the food you bought just didn't last and you didn't have money to get more.Never true03/24/2024RAPARE - TransportationAnswerDate RecordedLack of Transportation (Medical)Not on file03/24/2024In the past 12 months, has lack of transportation kept you from meetings, work, or from getting things needed for daily living?No03/24/2024Housing Stability Vital SignAnswerDate RecordedUnable to Pay for Housing in the Last YearNot on file03/24/2024Number of Places Lived in the Last YearNot on file03/24/2024In the last 12 months, was there a time when you did not have a steady place to sleep or slept in lenoirelter (including now)?No03/24/2024Food InsecurityAnswerDate RecordedWithin the past 12 months, you worried that your food would run out before you got the money to buymore.1 03/24/2024Within the past 12 months, the food you bought just didn't last and you didn't have money to get more.regnantCommentsUnknownSex and Gender InformationValueDate RecordedSex Assigned at IfhorNdbwar81/19/2021 10:22 PM EDTLegal ZdwHxcvcb32/10/2013 10:14 AM ESTGender MrehhrdrSzvdsd37/19/2021 10:22 PM EDTSexual XlooiilegxkFmcbpzlg46/19/2021 10:22 PM EDT Last Filed Vital Signs Vital SignReadingTime TakenCommentsBlood Eawtkikn686/6805 7:44 AM EDT Fxsur83120/10/2024 7:44 AM ESCExohplockji66.6 ??C (97.9 ??F)03/17/2023 11:29 AM EDTRespiratory Onga9699 8:27 AM ESTOxygen Bnqxhztjru91%03/24/2024 7:44 AM EDTInhaled Oxygen Concentration--Ltecox10.7 kg (103 lb)03/24/2024 7:44 AM EDT Wwoamu899.1 cm (5' 5 )03/24/2024 7:44 AM EDTBody Mass Index17.14003/24/2024 7:44 AM EDT Plan of Treatment Health MaintenanceDue DateLast DoneCommentsHIV cwctgv5310/17/2016HPV vaccine (1 - 3-dose series)2016Meningococcal B vaccine (1 of 2 - Standard)2017 Hepatitis C psljbj6410/17/2019Chlamydia/GC zxaqdq28/08/2020, 05/01/2020 DTaP/Tdap/Td vaccine (7 - Td or Tdap)/, 04/26/2007, 01/31/2003, Additional history existsDepression Gsufat83Flu vaccine (#1), 12/12/2013, 11/24/2012COVID-19 Vaccine ( season)2025Pap smear04/02/120234/12/2024, 06/14/2023Hepatitis B ydfgomwHcwgyunfs06/06/2002, 2001, 2001Hib vaccineCompleted 01/31/2003, 06/20/2002, 02/20/2002, Additional history exists Measles,Mumps,Rubella (MMR) ejxwzgbTkvqepvagfhg94/12/2007, 01/31/2003Polio dhuumkqFhufchpoa24/12/2007, 06/20/2002, 02/20/2002, Additional history exists Varicella uavbaefDedutrrrt03/12/2007, 01/31/2003Meningococcal (ACWY) vaccine Vcgpqhkxa35/11/2019Hepatitis A vaccineAged OutNo longer eligible based on patient's age to complete this topicPneumococcal 0-49 years VaccineAged OutNo longer eligible based on patient's age to complete this topic Procedures Procedure NamePriorityDate/TimeAssociated DiagnosisCommentsLAB RESULTRoutine 06/13/2025 2:10 PM EDTHM PAP CFNHPAzlegrj00/02/2025 6:25 AM EDTC.TRACHOMATIS N.GONORRHOEAE WTXIyxyvcm43/10/2020 1:00 PM EDT Vaginal irritation from Last 3 Months or Most Recently Relevant to Health Maintenance Results * LAB RESULT (06/13/2025 2:10 PM EDT) Narrative Authorizing ProviderResult TypeResult StatusHistorical Provider MDCHEMISTRY ORDERABLESFinal Result * HM PAP SMEAR (02/14/2025 6:25 AM EDT) Narrative Authorizing ProviderResult TypeResult StatusHistorical Provider MDHEALTH MAINTENANCEFinal Result * C.trachomatis N.gonorrhoeae DNA (06/24/2020 1:00 PM EDT)ComponentValueRef RangeTest MethodAnalysis TimePerformed AtPathologist SignatureSpecimen Description.QKQTVB7206/24/2020 1:00 PM EDTMERCY LABORATORIESC. trachomatis DNA MUOBLNOWQVHKZQGJ92/10/2020 1:00 PM EDTMERCY LABORATORIESComment: CHLAMYDIA TRACHOMATIS DNA not detected by nucleic acid amplification. ? This test is intended for medical purposes only and is not valid for the evaluation of suspected sexual abuse or for other forensic purposes. In certain contexts, culture may be required to meet applicable laws and regulations for diagnosis of C. trachomatis and N. gonorrhoeae infections. Per 2014 ??CDC recommendations, this test does not include confirmation of positive results by an alternative nucleic acid target. N. gonorrhoeae KXLYEBCDNUPDZXZYHLQ57/10/2020 1:00 PM EDTMERCY LABORATORIES Comment: NEISSERIA GONORRHOEAE DNA not detected by nucleic acid amplification. ? This test is intended for medical purposes only and is not valid for the evaluation of suspected sexual abuse or for other forensic purposes. In certain contexts, culture may be required to meet applicable laws and regulations for diagnosis of C. trachomatis and N. gonorrhoeae infections. Per 2014 ??CDC recommendations, this test does not include confirmation of positive results by an alternative nucleic acid target. Specimen (Source)Anatomical Location / LateralityCollection Method / Volume Collection TimeReceived TimeCERVICAL SWAB / Luqpmqa6906/24/2020 1:00 PM EDT 06/24/2020 5:09 PM EDT Narrative Authorizing ProviderResult TypeResult StatusKathleen E Pool CLASSROOM PARAPROFESSIONAL - CNM MICROBIOLOGY - GENERAL ORDERABLESFinal ResultPerforming OrganizationAddress City/State/ZIP CodePhone Number [facility] [address] [place] [address], [facility] [phone] [facility] [address] [place] [address], [facility] [phone] from Last 3 Months or Most Recently Relevant to Health Maintenance Insurance Advance Directives * Full Code (Latest Code Status on File) Date ActivatedDate JhvczqhscjvQdcrxxxa26/17/2017 11:44 AM11/02/2017 10:30 PM Care Teams Team MemberRelationshipSpecialtyStart DateEnd Date Geni Piedra DO [address] [place] [address] [facility]02/03/16
--- OUTSIDE RECORDS SUMMARY | 2025-09-04 18:31 | XMS_ITS | Clinical Summary ---
Author Organization [facility] Address [address] [place] [address] Care Team Providers Care Medical Assisting Instructor Name Role Phone Geni Piedra Primary Care Provider [phone] Jacob Nolen DO Unavailable Allergies No known active allergies Medications MedicationSigDispense QuantityRefillsLast FilledStart DateEnd DateStatus ondansetron (Zofran) 4 MG tablet Take 4 mg by mouth every 6 (six) hours5Active MV-Min-Fe Fum-FA-DHA ( 1 PO) Take 1 tablet by mouth DailyActive pyridoxine (Vitamin B-6) 25 MG tablet Indications:NauseaTake 1 tablet (25 mg) by mouth every 8 (eight) hours 90 tablet 501/6Active Encounters DateTypeDepartmentCare PtbyBoovnhyftcq08/21/2025 1:30 [place] [address] Jacob Nolen DO Third trimester ([facility]); 36 weeks gestation of ([facility]); Exposure to STD09/04/2025 1:00 PM [place] [address] size inconsistent with dates ([facility])08/20/2025 1:50 [place] [address] Flavia Zhu, MARCUS Nausea (Primary Dx); Third trimester ([facility]); 33 weeks gestation of ([facility])08/20/20254674Bhddfc40/06/2025Bamboo flowsheet [facility] [address] [place] [address] Flavia Zhu, MARCUS 08/06/2025 2:20 PM EDTRoutine [facility] [address] [place] [address] Jacob Nolen, size inconsistent with dates ([facility]) (Primary Dx); Third trimester ([facility]); 31 weeks gestation of ([facility])5Clinisync Result Encounter [facility] External Department Unsolicited Jacob Nolen, DO 5Clinisync Result Encounter [facility] External Department Unsolicited Jacob Nolen, DO 5Bamboo flowsheet [facility] [address] [place] [address] Jacob Nolen, DO 5Abstract [facility] [address] [place] [address] Jacob Nolen, DO 07/23/2025 9:50 AM EDTRoutine [facility] [address] [place] [address] Flavia Zhu, MARCUS Third trimester ([facility]); 29 weeks gestation of ([facility])07/23/2025 9:00 AM EDTAncillary Procedure [facility] [address] [place] [address] Size of fetus inconsistent with dates in second trimester ([facility])07/23/2025 Telephone [facility] MAZAGYMarshall [address] [place] [address] Hedy Nam, GULLET SLITTER 07/09/2025 9:30 AM EDTRoutine [facility] [place] [facility] [address] [place] [address] Eva Degroot PA Size of fetus inconsistent with dates in second trimester ([facility]) (Primary Dx); Second trimester ([facility]); 27 weeks gestation of ([facility])07/09/2025amboo flowsheet [facility] [place] [facility] [address] [place] [address] Eva Degroot PA 06/28/2025bstract [facility] [address] [place] [address] Jacob Nolen DO 06/28/2025Telephone [facility] [place] [facility] [address] [place] [address] Maribeth Li, GULLET SLITTER 06/07/2025 9:10 AM EDTInitial [facility] [place] [facility] [address] [place] [address] Jacob Nolen DO GA: 85k5g7406/07/2025bstract [facility] [place] [facility] [address] [place] [address] Jacob Nolen DO from Last 3 Months Family History Medical HistoryRelationNameCommentsNo Known ProblemsDaughterNo Known Problems FatherMelanomaMaternal GrandfatherNo Known ProblemsMotherDiabetesPaternal GrandfatherNo Known ProblemsSisterRelationNameStatusCommentsDaughterFatherAlive Maternal GrandfatherMotherAlivePaternal GrandfatherSisterx1 Social History Tobacco UseTypesPacks/DayYears UsedDateSmoking Tobacco: Never Tobacco Cessation:Counseling Given: Not Answered Alcohol UseStandard Drinks/WeekCommentsNot Currently0 (1 standard drink = 0.6 oz pure alcohol)caffeine intake: 1 coffee/dayEstimated Date of Delivery GpjldlyyFvm06/18/2025Based on last menstrual period of 12/26/2024Sex and Gender InformationValueDate RecordedSex Assigned at BirthNot on fileLegal SexFemale 01/27/2023 6:52 PM EDTGender IdentityNot on fileSexual OrientationNot on file OccupationIndustryJob Start DateJob End DateNot on fileNot on fileNot on fileNot on file Last Filed Vital Signs Vital SignReadingTime TakenCommentsBlood Hzlnrnph477/7009/04/2025 1:43 PM EDT Pulse--Temperature--Respiratory Rate--Oxygen Saturation--Inhaled Oxygen Concentration--Qnesiw96.3 kg (133 lb)09/04/2025 1:43 PM PWIYzaxtb881.1 cm (5' 5 )06/30/2021 12:00 PM EDTBody Mass Index22.13006/30/2021 12:00 PM EDT Plan of Treatment DateTypeDepartmentCare Team (Latest Contact Info)Dhfvzjpwgkl26/29/2025 2:50 PM EDTRoutine [facility] [address] [place] [address] Eva Degroot PA [address] [place] [address] Goals GoalPatient Goal TypeAssociated ProblemsRecent ProgressPatient-Stated?Author Reminders Care PlanOB RemindersAlexandra Lizama RN Procedures Procedure NamePriorityDate/TimeAssociated DiagnosisCommentsPOCT URINALYSIS IZPPQEZWYbxhugl90/21/2025 1:49 PM EDT 36 weeks gestation of ([facility]) POCT URINALYSIS MSIUGPIKTfeksml12/06/2025 1:51 PM EDT Third trimester ([facility]) US OB BPP W NON-IIVTVC7008/06/2025 5:27 PM EDT US OB CERVICAL FMYWVT7608/06/2025 5:26 PM EDT POCT URINALYSIS IBCRGOBVXoulqow32/22/2025 2:43 PM EDT Third trimester ([facility]) POCT URINALYSIS VQLLIEPSBzrqikl04/08/2025 9:27 AM EDT Third trimester ([facility]) US OB FOLLOW UP TRANSABDOMINAL VKQRUFXKVyslgpe02/08/2025 9:18 AM EDT Size of fetus inconsistent with dates in second trimester ([facility]) POCT URINALYSIS HJYITVIJEqjxnpj99/25/2025 9:57 AM EDT Second trimester ([facility]) POCT URINALYSIS KSOBROVQVwrqwmo97/24/2025 10:20 AM EDT 23 weeks gestation of ([facility]) Second trimester ([facility]) from Last 3 Months Results * POCT urinalysis dipstick manually resulted (09/04/2025 1:49 PM EDT) Only the most recent of6 resultswithin the time period is included. ComponentValueRef RangeTest MethodAnalysis TimePerformed AtPathologist Signature Color, UAYellowClarity, UAClearGlucose, UANegativeNegative - 2000(110) ++++ mg/dLBilirubin, UANegativeNegative - 4(70) +++ mg/dLKetones, UANegativeNegative - 160(16) ++++ mg/dLSpec Grav, UA1.0201 - 1.03Blood, UANegativeNegative - 50 Zhen/mcLpH, UA5.65 - 9Protein, UANegativeNegative - 2000(20) ++++ mg/dL Urobilinogen, UA1.00.2 - 12 mg/dLLeukocytes, UANegativeNegative - 500+++ Gucci/mcL Nitrite, UANegativeNegative - PositiveSpecimen (Source)Anatomical Location / LateralityCollection Method / VolumeCollection TimeReceived LsuuUtkww29/21/2025 1:49 PM EDT Narrative Authorizing ProviderResult TypeResult StatusCorey Tamanna DOPOINT OF CARE TEST ENTER/EDIT ORDERABLESFinal Result * US OB BPP W NON-STRESS (08/06/2025 5:27 PM EDT)Anatomical Region LateralityModalityOtherSpecimen (Source)Anatomical Location / Laterality Collection Method / VolumeCollection TimeReceived Time08/06/2025 5:27 PM EDT Narrative 08/06/2025 5:30 PM EDT [facility] ?[address] ? [place] [address] ? Ultrasound Report ? Signed ? Patient: RENNY TERRAZAS ? MR#: [id number] ?? : 2000 ?Acct:[id number] ?? Age/Sex: 24 / F ?ADM Date: ?? Loc: [facility] ??258-1 ? Attending Dr: Jacob Nolen D.O. ? Ordering Physician: Jacob Nolen D.O. ?? Date of Service: 08/06/25 ?? Procedure(s): US OB BPP w non-stress ?? Accession Number(s): [id number] ? cc: Jacob Nolen D.O.; Geni Piedra M.D. ? [facility] ? [address] ? [place] [address] ? Patient Name: ?? RENNY TERRAZAS ? MRN: [facility]:[id number] ? date: 2000 ?Sex: F ?? Assigned Patient Location: [facility] ?? Current Patient Location: ? Accession/Order Number: [id number] ?? Exam Date: 08/06/2025 ??16:27 ?Report Date: 08/06/2025 ??17:27 ? At the request of: ?? JACOB ??TAMANNA ??DO ? Procedure: ??US OB BPP w non-stress ? Ultrasound biophysical profile ? INDICATION: Decreased motion for one day ? COMPARISON: Cervical length ultrasound 08/06/2025 ? FINDINGS/IMPRESSION: 8 out of 8 score biophysical profile. ??Amniotic fluid ?? volume 10.8 cm. ??Heart rate 1 34 bpm ? Impression dictated by: Elias Stanley M.D. ??08/06/2025 5:27 PM ? Dictation Location: RADIO-PC-29 ? Electronically authenticated by: [id number] ??Y ?? Date: 08/06/2025 ??17:27 ? Dictated By: ?Elias Stanley M.D. ? Signed By: ?08/06/ 1730 ? DD/ ? TD/TT: ? Side Splitter: Procedure Note Radiology, Radiologist, - 08/06/2025 [place] [address] Ultrasound Report Signed Patient: RENNY TERRAZAS NMR#: [id number] : 2000Acct:[id number] Age/Sex: 24 / FADM Date: Loc: [facility] 258-[address]: Jacob Nolen D.O. Ordering Physician: Jacob Nolen D.O. Date of Service: 08/06/25 Procedure(s): US OB BPP w non-stress Accession Number(s): [id number] cc: Jacob Nolen D.O.; Geni Piedra M.D. The [address] [address] Patient Name: RENNY TERRAZAS MRN: [id number] date: 2000 Sex: F Assigned Patient Location: [facility] Current Patient Location: Accession/Order Number: [id number] Exam Date: 08/06/2025 16:27 Report Date: 08/06/2025 17:27 At the request of: JACOB NOLEN DO Procedure: US OB BPP w non-stress Ultrasound biophysical profile INDICATION: Decreased motion for one day COMPARISON: Cervical length ultrasound 08/06/2025 FINDINGS/IMPRESSION: 8 out of 8 score biophysical profile. Amniotic fluid volume 10.8 cm. Heart rate 1 34 bpm Impression dictated by: Elias Stanley M.D. 08/06/2025 5:27 PM Dictation Location: [place] [address] Electronically authenticated by: [id number] Y Date: 7:27 Dictated By: Elias Stanley M.D. Signed By:08/06/251729 DD/ 26 TD/TT: Side Splitter: Authorizing ProviderResult TypeResult StatusCorey Tamanna DOCLINISYNC IMAGINGFinal Result * US OB CERVICAL LENGTH (08/06/2025 5:26 PM EDT)Anatomical RegionLaterality ModalityOtherSpecimen (Source)Anatomical Location / LateralityCollection Method / VolumeCollection TimeReceived Time08/06/2025 5:26 PM EDT Narrative 08/07/2025 2:51 PM EDT [facility] ?[address] ? [place] [address] ? Ultrasound Report ? Signed ? Patient: RENNY TERRAZAS N ? MR#: [id number] ?? : 2000 ?Acct:[id number] ?? Age/Sex: 24 / F ?ADM Date: ?? Loc: [facility] ??258-1 ? Attending Dr: Jacob Nolen D.O. ? Ordering Physician: Jacob Nolen D.O. ?? Date of Service: 08/06/25 ?? Procedure(s): US OB cervical length ?? Accession Number(s): [id number] ? cc: Jacob Nolen D.O.; Geni Piedra M.D. ? [facility] ? [address] ? [place] [address] ? Patient Name: ?? RENNY TERRAZAS ? MRN: [facility]:[id number] ? date: 2000 ?Sex: F ?? Assigned Patient Location: [facility] ?? Current Patient Location: [facility] ?? Accession/Order Number: [id number] ?? Exam Date: 08/06/2025 ??16:27 ?Report Date: 08/06/2025 ??17:26 ? At the request of: ?? JACOB ??TAMANNA ??DO ? Procedure: ??US OB cervical length ? OB ULTRASOUND ?? CERVICAL LENGTH ? INDICATION: Decreased movement x1 day ? COMPARISON: None ? FINDINGS: Within the uterus, there is a single live intrauterine ?? with heart rate 134 beats per minutes. ?? somatic motion is documented by ?? the school bus driver. ??Cephalic position with longitudinal lie. ??Amniotic fluid ?? 10.8 cm which is between the 5th and 95th percentile ? Cervical length 3.1 cm, closed. ? US/US OB cervical length ?? IMPRESSION: Single live intrauterine with closed cervix ? Impression dictated by: Elias Stanley M.D. ??08/06/2025 5:26 PM ? Dictation Location: RADIO-PC-29 ? Electronically authenticated by: [id number] ??Y ?? Date: 08/06/2025 ??17:26 ? Dictated By: ?Elias Stanley M.D. ? Signed By: ?08/07/ 1451 ? DD/ ? TD/TT: ? Side Splitter: Procedure Note Radiology, Radiologist, - 08/07/2025 [place] [address] Ultrasound Report Signed Patient: RENNY TERRAZAS NMR#: [id number] : 2000Acct:[id number] Age/Sex: 24 / FADM Date: Loc: [facility] 258-[address]: Jacob Nolen D.O. Ordering Physician: Jacob Nolen D.O. Date of Service: 08/06/25 Procedure(s): US OB cervical length Accession Number(s): [id number] cc: Jacob Nolen D.O.; Geni Piedra M.D. The [place] [id number] Patient Name: RENNY TERRAZAS MRN: [id number] date: 2000 Sex: F Assigned Patient Location: [facility] Current Patient Location: [facility] Accession/Order Number: [id number] Exam Date: 08/06/2025 16:27 Report Date: 08/06/2025 17:26 At the request of: JACOB NOLEN DO Procedure: US OB cervical length OB ULTRASOUND CERVICAL LENGTH INDICATION: Decreased movement x1 day COMPARISON: None FINDINGS: Within the uterus, there is a single live intrauterine with heart rate 134 beats per minutes. somatic motion is documentedby the school bus driver. Cephalic position with longitudinal lie. Amniotic fluid 10.8 cm which is between the 5th and 95th percentile Cervical length 3.1 cm, closed. US/US OB cervical length IMPRESSION: Single live intrauterine with closed cervix Impression dictated by: Elias Stanley M.D. 08/06/2025 5:26 PM Dictation Location: [place] [address] Electronically authenticated by: [id number] Y Date: 7:26 Dictated By: Elias Stanley M.D. Signed By:08/07/25 1454 DD/ 5216 TD/TT: Side Splitter: Authorizing ProviderResult TypeResult StatusCorey Tamanna DOCLINISYNC IMAGINGFinal Result * US OB follow up transabdominal approach (07/23/2025 9:18 AM EDT)Anatomical RegionLateralityModalityBodyUltrasoundSpecimen (Source)Anatomical Location / LateralityCollection Method / VolumeCollection TimeReceived Time07/24/2025 10:52 AM EDT Impressions 07/24/2025 11:40 AM EDT Single, live intrauterine , current sonographic age of 30 weeks and 6 days, with an estimated date of delivery of September 25, 2025. * ??Estimated Weight (g) by Percentile is based upon an accurate estimated age based onlast menstrual period. ?? TRANSCRIBED BY: ? ELECTRONICALLY SIGNED BY: Joel Coronado MD Narrative 07/24/2025 11:40 AM EDT FINDINGS: A single, live intrauterine is present with normal cardiac rate of 137 beats per minute. Normal activity and amniotic fluid volume. Amniotic fluid index is 12 cm. ??Morphology is grossly normal. The cervix is not seen due to positioning. ??The current sonographic age is 30 weeks and 6 days, based on the following measurements: ?BPD ? 7.8 cm (31 weeks, 1 day) ?Head Circumference ?28.0 cm (30 weeks, 4 days) ?Abdominal Circumference ?26.6 cm (30 weeks, 5 days) ?Femur Length ?5.9 cm (30 weeks, 6 days) ?Presentation ? Cephalic ? Weight (g) by Percentile ??70.0 % * These measurements result in an estimated date of delivery of September 25, 2025. ?? The current estimated weight is 1635 grams (3 pounds, 10 ounces). ?? Procedure Note Joel Coronado MD - 07/24/2025 [...] BY: Joel Coronado MD Authorizing ProviderResult TypeResult StatusAmy [place] PAIMG OB US PROCEDURES Final Result from Last 3 Months Additional Health Concerns Active ProblemsNoted DateDiagnosed DateOB Rjjtxasub67/17/2025 Insurance Care Teams Team MemberRelationshipSpecialtyStart DateEnd Date Geni Piedra DO [address] [place] [address] PCP - GeneralInternal Medicine06/07/25 Jacob Nolen DO [address] [place] [address] Referring PhysicianObstetrics and Gynecology08/08/25
== END 2025-09-04 18:27 | disposition home or self-care (01) ==
LOC: LAB 18:26
PROVIDERS: PCP Student in an Organized Health Care Education/Training Program; Visit Provider Obstetrics & Gynecology
DX: Z34.93 Encounter for supervision of normal pregnancy, unspecified, third trimester (principal); Z3A.36 36 weeks gestation of pregnancy
CPT/HCPCS: 87081

== ENCOUNTER 2025-09-08 21:07 | Observation (INO) | payer OTHER, SELFPAY ==
--- OUTSIDE RECORDS SUMMARY | 2025-09-04 13:00 | XMS_ITS | Encounter Summary ---
Author Organization [facility] Address [address] [place] [address] Care Team Providers Care Employment Appeals Examiner Name Role Phone Geni Piedra Primary Care Provider Mitchel Nolen DO Unavailable Encounter Details DateTypeDepartmentCare Team (Latest Contact Info)Gwzlbwsbqqi27/21/2025 1:00 PM EDTAncillary Procedure [facility] [address] [place] [address] size inconsistent with dates ([facility]) Social History Tobacco UseTypesPacks/DayYears UsedDateSmoking Tobacco: NeverAlcohol UseStandard Drinks/WeekCommentsNot Currently0 (1 standard drink = 0.6 oz pure alcohol) caffeine intake: 1 coffee/dayEstimated Date of DeliveryCommentsYes 5Based on last menstrual period of 12/26/2024Sex and Gender Information ValueDate RecordedSex Assigned at BirthNot on fileLegal DciGyblgz55/15/2023 6:52 PM EDTGender IdentityNot on fileSexual OrientationNot on fileOccupationIndustry Job Start DateJob End DateNot on fileNot on fileNot on fileNot on filedocumented as of this encounter Plan of Treatment DateTypeDepartmentCare Team (Latest Contact Info)Kvizoljuoqw69/29/2025 2:50 PM EDTRoutine [facility] [address] [place] [address] Eva Degroot PA [address] [place] [address] [place] [address] documented as of this encounter Goals GoalPatient Goal TypeAssociated ProblemsRecent ProgressPatient-Stated?Author Reminders Care PlanOB RemindersNoSuryaAlexandra ash, RNdocumented as of this encounter Procedures Procedure NamePriorityDate/TimeAssociated DiagnosisCommentsUS OB FOLLOW UP TRANSABDOMINAL JLELIHSPVykygax28/21/2025 1:24 PM EDT size inconsistent with dates ([facility]) documented in this [...] BY: Joel Coronado MD Authorizing ProviderResult TypeResult StatusFlavia Zhu NPNORMAN [facility] [place] OB US PROCEDURESFinal Result documented in this encounter Visit Diagnoses Diagnosis size inconsistent with dates ([facility]) documented in this encounter Additional Health Concerns Active ProblemsNoted DateDiagnosed DateOB Wjvgptvtt42/17/2025 documented as of this encounter Care Teams Team MemberRelationshipSpecialtyStart DateEnd Date Geni Piedra DO [address] [place] [phone] PCP - GeneralInternal Medicine06/07/25 Mitchel Nolen DO [address] [place] [phone] Referring PhysicianObstetrics and Gynecology08/08/25documented as of this encounter
--- OUTSIDE RECORDS SUMMARY | 2025-09-04 13:30 | XMS_ITS | Encounter Summary ---
Author Organization [facility] Address [address] [place] [place] [address] Care Team Providers Care X Ray Nurse Name Role Phone DamionGeni bocanegra Primary Care Provider [phone] Mitchel Nolen DO Unavailable Reason for Visit * ReasonCommentsRoutine Visit Encounter Details DateTypeDepartmentCare Team (Latest Contact Info)Lwodmxhcflu03/21/2025 1:30 PM EDTRoutine [facility] [address] [phone] Mitchel Nolen DO [address] [facility] [address] [place], [facility]11 Third trimester ([facility]); 36 weeks gestation of ([facility]); Exposure to STD Social History Tobacco UseTypesPacks/DayYears UsedDateSmoking Tobacco: NeverAlcohol UseStandard Drinks/WeekCommentsNot Currently0 (1 standard drink = 0.6 oz pure alcohol) caffeine intake: 1 coffee/dayEstimated Date of DeliveryCommentsYes 5Based on last menstrual period of 12/26/2024Sex and Gender Information ValueDate RecordedSex Assigned at BirthNot on fileLegal PkdZfpyxf62/15/2023 6:52 PM EDTGender IdentityNot on fileSexual OrientationNot on fileOccupationIndustry Job Start DateJob End DateNot on fileNot on fileNot on fileNot on filedocumented as of this encounter Last Filed Vital Signs Vital SignReadingTime TakenCommentsBlood Upsjmqjv091/7010 1:43 PM EDT Pulse--Temperature--Respiratory Rate--Oxygen Saturation--Inhaled Oxygen Concentration--Sthbby53.3 kg (133 lb)09/04/2025 1:43 PM EDTHeight--Body Mass [...] nursing note reviewed. Exam conducted with a clipper automatic present. Vitals: Estimated body mass index is 22.13 kg/m?? as calculated from the following: Height as of 06/30/21: 5' 5 . Weight as of this encounter: 133 lb. BP: 112/70 Patient's last menstrual period was 12/26/2024. Assessment/Plan ICD-10-CM 1. Third trimester ([facility]) Z34.93 CULTURE, GROUP B STREP WITH SUSCEPTIBLITY CULTURE, GROUP B STREP WITH SUSCEPTIBLITY 2. 36 weeks gestation of ([facility]) Z3A.36 POCT urinalysis dipstick manually resulted 3. [...] documented in this encounter Plan of Treatment DateTypeDepartmentCare Team (Latest Contact Info)Tnwowkqwwlp65/29/2025 2:50 PM EDTRoutine [facility] [address] [place] [address] Eva Degroot PA [address] [place] [address] NameTypePriorityAssociated DiagnosesOrder ScheduleCULTURE, GROUP B STREP WITH SUSCEPTIBLITYLabRoutine Third trimester ([facility]) Expected: 09/04/2025, Expires: 09/04/2026documented as of this encounter Goals GoalPatient Goal TypeAssociated ProblemsRecent ProgressPatient-Stated?Author Reminders Care PlanOB RemindersAlexandra Lizama RNdocumented as of this encounter Procedures Procedure NamePriorityDate/TimeAssociated DiagnosisCommentsPOCT URINALYSIS BJTAVPAYCjferup38/21/2025 1:49 PM EDT 36 weeks gestation of ([facility]) PAP TEST, UNUNXAOVTlpjyaq42/02/2025 12:00 AM EDTdocumented in this encounter Results [...] OF CARE TEST ENTER/EDIT ORDERABLESFinal Result * PAP TEST, EXTERNAL (02/14/2025 12:00 AM EDT) Narrative Authorizing ProviderResult TypeResult StatusCorey Tamanna DOLAB CYTOLOGY ORDERABLESFinal ResultPerforming OrganizationAddressCity/State/ZIP CodePhone Number EXTERNAL LAB documented in this encounter Visit Diagnoses Diagnosis Third trimester ([facility]) state, incidental 36 weeks gestation of ([facility]) Exposure to STD documented in this encounter Additional Health Concerns Active ProblemsNoted DateDiagnosed DateOB Eftkuxxij34/17/2025 documented as of this encounter Care Teams Team MemberRelationshipSpecialtyStart DateEnd Date Geni Piedra DO [address] [place] [address] PCP - GeneralInternal Medicine06/07/25 Mitchel Nolen DO [address] [place] [address] Referring PhysicianObstetrics and Gynecology08/08/25documented as of this encounter
--- OUTSIDE RECORDS SUMMARY | 2025-09-08 21:11 | XMS_ITS | Encounter Summary ---
Author Organization [facility] Address [address] [place] [address] Care Team Providers Care Batch Unloader Name Role Phone Gein Piedra Primary Care Provider [phone] Mitchel Nolen DO Unavailable Encounter Details DateTypeDepartmentCare Team (Latest Contact Info)Usycbkcweun96/22/2025bstract [facility] [address] [place] [address] Kathrin Walters [place] Social History Tobacco UseTypesPacks/DayYears UsedDateSmoking Tobacco: NeverAlcohol UseStandard Drinks/WeekCommentsNot Currently0 (1 standard drink = 0.6 oz pure alcohol) caffeine intake: 1 coffee/dayEstimated Date of DeliveryCommentsYes 5Based on last menstrual period of 12/26/2024Sex and Gender Information ValueDate RecordedSex Assigned at BirthNot on fileLegal CmtWnqoib82/15/2023 6:52 PM EDTGender IdentityNot on fileSexual OrientationNot on fileOccupationIndustry Job Start DateJob End DateNot on fileNot on fileNot on fileNot on filedocumented as of this encounter Plan of Treatment DateTypeDepartmentCare Team (Latest Contact Info)Nsprgityrip42/29/2025 2:50 PM EDTRoutine [facility] [address] [place] [address] Eva Degroot PA [address] [place] [address] documented as of this encounter Goals GoalPatient Goal TypeAssociated ProblemsRecent ProgressPatient-Stated?Author Reminders Care PlanOB RemindersAlexandra Lizama RNdocumented as of this encounter Visit Diagnoses Not on filedocumented in this encounter Additional Health Concerns Active ProblemsNoted DateDiagnosed DateOB Imheeuhhu30/17/2025 documented as of this encounter Care Teams Team MemberRelationshipSpecialtyStart DateEnd Date Geni Piedra DO [address] [place] [address] PCP - GeneralInternal Medicine06/07/25 Mitchel Nolen DO [address] [place] [address] Referring PhysicianObstetrics and Gynecology08/08/25documented as of this encounter
--- OUTSIDE RECORDS SUMMARY | 2025-09-08 21:11 | XMS_ITS | Clinical Summary ---
Author Organization [facility] Address [address], [address] [place] [address] Care Team Providers Care Customs Consultant Name Role Phone Geni Piedra Primary Care [...] without aura and without status migrainosus, not ytypbaublut95/10/1170Xqpvruvbclr41/23/2019 Resolved Problems ProblemNoted DateDiagnosed DateResolved DateLoss of smell Dqbbven875120Osvhgspvfrdduav80/11/202007/22/2020Muscle weakness Abdominal painFrequent headaches ports zrujsyfm38 Encounters DateTypeDepartmentCare EblmHupszngdcgj92/30/2025Orders Only [facility] [address] [place] [address] Provider, MD Jeet from Last 3 Months Immunizations ImmunizationAdministration DatesNext DueDTaP uyvrdzn8301/31/2003,06/20/2002, 02/20/2002,2001DTaP, DAPTACEL, (age 6w-6y), IM, 0.5mL04/26/2007Hep B, ENGERIX-B, RECOMBIVAX-HB, (age - 19y), IM, 0.5mL06/20/2002,2001, 2001Hib PRP-OMP, PEDVAXHIB, (age 2m-6y, Adlt Risk), IM, 0.5mL01/31/2003Hib PRP-T, ACTHIB (age 2m-5y, Adlt Risk), HIBERIX (age 6w-4y, Adlt Risk), IM, 0.5mL 02/20/2002,2001Hib bmediqa1206/20/2002,02/20/2002,2001Influenza 11/24/2012Influenza Virus Jcncuzs5012/12/2013Influenza, FLUARIX, FLULAVAL, FLUZONE (age 6 mo+) and [...] heating?Not hard at all03/24/2024HQ-2 AnswerDate RecordedPHQ-9 Total Lysap986Hunger Vital SignAnswerDate RecordedWithin the past 12 months, [...] steady place to sleep or slept in calhounelter (including now)?No03/24/2024Food InsecurityAnswerDate RecordedWithin the past 12 months, you worried that your food would run out before you got the money to buymore.1 03/24/2024Within the past 12 months, the food you bought just didn't last and you didn't have money to get more.regnantCommentsUnknownSex and Gender InformationValueDate RecordedSex Assigned at JvgvvVgbfuf66/19/2021 10:22 PM EDTLegal FebTnvvnj28/10/2013 10:14 AM ESTGender QljnfkxmMhvzag11/19/2021 10:22 PM EDTSexual EyqlicwupsrGtlzuhsy86/19/2021 10:22 PM EDT Last Filed Vital Signs Vital SignReadingTime TakenCommentsBlood Cuvsajue693/6805 7:44 AM EDT Dbjjq33886/10/2024 7:44 AM LQSXxnplnfovzw74.6 ??C (97.9 ??F)03/17/2023 11:29 AM EDTRespiratory Zvrh7747 8:27 AM ESTOxygen Cghymjeoxr44%03/24/2024 7:44 AM EDTInhaled Oxygen Concentration--Hydolg81.7 kg (103 lb)03/24/2024 7:44 AM EDT Xmnfzk489.1 cm (5' 5 )03/24/2024 7:44 AM EDTBody Mass Index17.14003/24/2024 7:44 AM EDT Plan of Treatment Health MaintenanceDue DateLast DoneCommentsHIV tleyax4310/17/2016HPV vaccine (1 - 3-dose series)2016Meningococcal B vaccine (1 of 2 - Standard)2017 Hepatitis C mzbwuh2210/17/2019Chlamydia/GC gusqsj20/08/2020, 05/01/2020 DTaP/Tdap/Td vaccine (7 - Td or Tdap)/, 04/26/2007, 01/31/2003, Additional history existsDepression Pvytxm85Flu vaccine (#1), 12/12/2013, 11/24/2012COVID-19 Vaccine ( season)2025Pap smear04/02/273117/12/2024, 06/14/2023Hepatitis B qlqkxlmJnwlkirqf08/06/2002, 2001, 2001Hib vaccineCompleted 01/31/2003, 06/20/2002, 02/20/2002, Additional history exists Measles,Mumps,Rubella (MMR) rfrnmekSdtsokzmmwza92/12/2007, 01/31/2003Polio ehzpeukPesvmtbph74/12/2007, 06/20/2002, 02/20/2002, Additional history exists Varicella cjhtdiaPqwpudszm14/12/2007, 01/31/2003Meningococcal (ACWY) vaccine Yaolouchj30/11/2019Hepatitis A vaccineAged OutNo longer eligible based on patient's age to complete this topicPneumococcal 0-49 years VaccineAged OutNo longer eligible based on patient's age to complete this topic Procedures Procedure NamePriorityDate/TimeAssociated DiagnosisCommentsLAB RESULTRoutine 06/13/2025 2:10 PM EDTHM PAP DOPUGKyxmzar60/02/2025 6:25 AM EDTC.TRACHOMATIS N.GONORRHOEAE CUQWptmevq02/10/2020 1:00 PM EDT Vaginal irritation from Last 3 Months or Most Recently Relevant to Health Maintenance Results * LAB RESULT (06/13/2025 2:10 PM EDT) Narrative Authorizing ProviderResult TypeResult StatusHistorical Provider MDCHEMISTRY ORDERABLESFinal Result * HM PAP SMEAR (02/14/2025 6:25 AM EDT) Narrative Authorizing ProviderResult TypeResult StatusHistorical Provider MDHEALTH MAINTENANCEFinal Result * C.trachomatis N.gonorrhoeae DNA (06/24/2020 1:00 PM EDT)ComponentValueRef RangeTest MethodAnalysis TimePerformed AtPathologist SignatureSpecimen Description.GMLKWX7106/24/2020 1:00 PM EDTMERCY LABORATORIESC. trachomatis DNA CXPLRKMOYAGIIAHL69/10/2020 1:00 PM EDTMERCY LABORATORIESComment: CHLAMYDIA TRACHOMATIS DNA [...] an alternative nucleic acid target. N. gonorrhoeae VFMGRNDJGQRESCHVKJZ21/10/2020 1:00 PM EDTMERCY LABORATORIES Comment: NEISSERIA GONORRHOEAE [...] / Volume Collection TimeReceived TimeCERVICAL SWAB / Cydgaun3606/24/2020 1:00 PM EDT 06/24/2020 5:09 PM EDT Narrative Authorizing ProviderResult TypeResult StatusKathleen E Pool DIVISION SUPERINTENDENT - CNM MICROBIOLOGY - GENERAL ORDERABLESFinal ResultPerforming OrganizationAddress City/State/ZIP CodePhone Number [facility] [address] [place] [address], [facility] [phone] [facility] [address] [place] [address], [facility] [phone] from Last 3 Months or Most Recently Relevant to Health Maintenance Insurance Advance Directives * Full Code (Latest Code Status on File) Date ActivatedDate YlnfscdfqfnCsygieuh87/17/2017 11:44 AM11/02/2017 10:30 PM Care Teams Team MemberRelationshipSpecialtyStart DateEnd Date Geni Piedra DO [address] [place] [address] [facility]02/03/16
--- OUTSIDE RECORDS SUMMARY | 2025-09-08 21:11 | XMS_ITS | Clinical Summary ---
Author Organization [facility] Address [address] [place] [address] Care Team Providers Care Document Manager Name Role Phone Geni Piedra Primary Care Provider [phone] Jacob Nolen DO Unavailable Allergies No known active allergies Medications MedicationSigDispense QuantityRefillsLast FilledStart DateEnd DateStatus ondansetron (Zofran) 4 MG tablet Take 4 mg by mouth every 6 (six) hours5Active MV-Min-Fe Fum-FA-DHA ( 1 PO) Take 1 tablet by mouth DailyActive pyridoxine (Vitamin B-6) 25 MG tablet Indications:NauseaTake 1 tablet (25 mg) by mouth every 8 (eight) hours 90 tablet 501/6Active Encounters DateTypeDepartmentCare EhrfAggijnbapsq83/22/2025[place] [address] Kathrin Walters MA 09/04/2025 1:30 [place] [address] Jacob Nolen DO Third trimester ([facility]); 36 weeks gestation of ([facility]); Exposure to STD09/04/2025 1:00 PM EDTAncillary [place] [address] size inconsistent with dates ([facility])08/20/2025 1:50 PM EDTRoutine [facility] [address] [place] [address] Flavia Zhu, MARCUS Nausea (Primary Dx); Third trimester ([facility]); 33 weeks gestation of ([facility])08/20/20258780Oxudns74/06/2025Bamboo flowsheet [facility] [address] [place] [address] Flavia Zhu NP 08/06/2025 2:20 PM EDTRoutine [facility] [address] [place] [address] Jacob Nolen, size inconsistent with dates ([facility]) (Primary Dx); Third trimester ([facility]); 31 weeks gestation of ([facility])5Clinisync Result Encounter [facility] External Department Unsolicited Jacob Nolen, DO 5Clinisync Result Encounter NOMS External Department Unsolicited Jacob Nolen, DO 5Bamboo flowsheet [facility] [address] [place] [address] [place] [address] Jacob Nolen, DO 5Abstract [facility] [address] [place] [address] [place] [address] Jacob Nolen, DO 07/23/2025 9:50 AM EDTRoutine [facility] [address] [place] [address] Flavia Zhu, MARCUS Third trimester ([facility]); 29 weeks gestation of ([facility])07/23/2025 9:00 AM EDTAncillary Procedure [facility] [address] [place] [address] [place] [address] Size of fetus inconsistent with dates in second trimester ([facility])07/23/2025 Telephone [facility] [address] [place] [address] Hedy Nam LPN 07/09/2025 9:30 AM EDTRoutine [facility] [address] [place] [address] Eva Degroot, PA Size of fetus inconsistent with dates in second trimester ([facility]) (Primary Dx); Second trimester ([facility]); 27 weeks gestation of ([facility])07/09/2025amboo flowsheet [facility] [address] [place] [address] Eva Degroot PA 06/28/2025bstract [facility] [address] [place] [address] Jacob Nolen DO 06/28/2025Telephone [facility] [address] [place] [address] Maribeth Li LPN from Last 3 Months Family History Medical HistoryRelationNameCommentsNo Known ProblemsDaughterNo Known Problems FatherMelanomaMaternal GrandfatherNo Known ProblemsMotherDiabetesPaternal GrandfatherNo Known ProblemsSisterRelationNameStatusCommentsDaughterFatherAlive Maternal GrandfatherMotherAlivePaternal GrandfatherSisterx1 Social History Tobacco UseTypesPacks/DayYears UsedDateSmoking Tobacco: Never Tobacco Cessation:Counseling Given: Not Answered Alcohol UseStandard Drinks/WeekCommentsNot Currently0 (1 standard drink = 0.6 oz pure alcohol)caffeine intake: 1 coffee/dayEstimated Date of Delivery MwpoyblfFej23/18/2025Based on last menstrual period of 12/26/2024Sex and Gender InformationValueDate RecordedSex Assigned at BirthNot on fileLegal SexFemale 01/27/2023 6:52 PM EDTGender IdentityNot on fileSexual OrientationNot on file OccupationIndustryJob Start DateJob End DateNot on fileNot on fileNot on fileNot on file Last Filed Vital Signs Vital SignReadingTime TakenCommentsBlood Jwhbqwsm832/7009/04/2025 1:43 PM EDT Pulse--Temperature--Respiratory Rate--Oxygen Saturation--Inhaled Oxygen Concentration--Kftdfk38.3 kg (133 lb)09/04/2025 1:43 PM TOKWcitjz307.1 cm (5' 5 )06/30/2021 12:00 PM EDTBody Mass Index22.13006/30/2021 12:00 PM EDT Plan of Treatment DateTypeDepartmentCare Team (Latest Contact Info)Yhhyuhpjmba99/29/2025 2:50 PM EDTRoutine [facility] [address] [place] [phone] Eva Degroot PA [address] [place], [place] [id number] Goals GoalPatient Goal TypeAssociated ProblemsRecent ProgressPatient-Stated?Author Reminders Care PlanOB RemindersAlexandra Lizama RN Procedures Procedure NamePriorityDate/TimeAssociated DiagnosisCommentsPOCT URINALYSIS HCBXZDLXNwbankm62/21/2025 1:49 PM EDT 36 weeks gestation of ([facility]) US OB FOLLOW UP TRANSABDOMINAL OBPZMQUJRuvxrwa98/21/2025 1:24 PM EDT size inconsistent with dates ([facility]) POCT URINALYSIS VZOVQGVFFguqukx62/06/2025 1:51 PM EDT Third trimester ([facility]) US OB BPP W NON-IEBDLW4508/06/2025 5:27 PM EDT US OB CERVICAL TUAHYF7908/06/2025 5:26 PM EDT POCT URINALYSIS FXYLGECZOcsbaes68/22/2025 2:43 PM EDT Third trimester ([facility]) POCT URINALYSIS PDZGMJDRArjecmp01/08/2025 9:27 AM EDT Third trimester ([facility]) US OB FOLLOW UP TRANSABDOMINAL BCCKXGXELztgkyt85/08/2025 9:18 AM EDT Size of fetus inconsistent with dates in second trimester ([facility]) POCT URINALYSIS XKUKENTGNxraqaz48/25/2025 9:57 AM EDT Second trimester ([facility]) from Last 3 Months Results * POCT urinalysis dipstick manually resulted (09/04/2025 1:49 PM EDT) Only the most recent of5 resultswithin the time period is included. ComponentValueRef [...] Location / LateralityCollection Method / VolumeCollection TimeReceived QeixDjjca26/21/2025 1:49 PM EDT Narrative Authorizing ProviderResult TypeResult StatusCorey Tamanna DOPOINT OF CARE TEST ENTER/EDIT ORDERABLESFinal Result * US OB follow up transabdominal approach (09/04/2025 1:24 PM EDT) Only the most recent of2 resultswithin the time period is included. Anatomical RegionLateralityModalityBodyUltrasoundSpecimen (Source)Anatomical Location / LateralityCollection Method / VolumeCollection TimeReceived Time 09/04/2025 3:51 PM EDT Impressions 09/05/2025 7:08 AM [...] Coronado MD Authorizing ProviderResult TypeResult StatusFlavia Zhu NPIMG OB US PROCEDURESFinal Result * US OB BPP W NON-STRESS (08/06/2025 5:27 PM EDT)Anatomical Region LateralityModalityOtherSpecimen (Source)Anatomical Location / Laterality Collection Method / VolumeCollection TimeReceived Time08/06/2025 5:27 PM EDT Narrative 08/06/2025 5:30 PM EDT [facility] ?[address] ? [place] [address] ? Ultrasound Report ? Signed ? Patient: RENNY TERRAZAS ? MR#: [id number] ?? : 2000 ?Acct:[id number] ?? Age/Sex: 24 / F ?ADM Date: ?? Loc: [facility] ??258-1 ? Attending Dr: Jacob Nolen D.O. ? Ordering Physician: Jacob Nolen D.O. ?? Date of Service: 08/06/25 ?? Procedure(s): US OB BPP w non-stress ?? Accession Number(s): [id number] ? cc: Jacob Nolen D.O.; Geni Piedra M.D. ? [facility] ? [address] ? [place] [address] ? Patient Name: ?? RENNY TERRAZAS ? MRN: [id number] ? date: 2000 ?Sex: F ?? Assigned Patient Location: [facility] ?? Current Patient Location: ? Accession/Order Number: [id number] ?? Exam Date: 08/06/2025 ??16:27 ?Report Date: [...] Dictation Location: [facility]IO-PC-29 ? Electronically authenticated by: [id number] ??Y ?? Date: 08/06/2025 ??17:27 ? Dictated By: ?Elias Stanley M.D. ? Signed By: ?08/06/250 ? DD/ 1727 ? TD/TT: ? Engineering Aid: Procedure Note Radiology, Radiologist, MD - 08/06/2025 [place] [address] Ultrasound Report Signed Patient: RENNY TERRAZAS NMR#: [id number] : 2000Acct:[id number] Age/Sex: Date: Loc: [facility] 258-[address]: Jacob Nolen D.O. Ordering Physician: Jacob Nolen D.O. Date of Service: 08/06/25 Procedure(s): US OB BPP w non-stress Accession Number(s): [id number] cc: Jacob Nolen D.O.; Geni Piedra M.D. The [address] [address] Patient Name: RENNY TERRAZAS MRN: [id number] date: 2000 Sex: F Assigned Patient Location: [facility] Current Patient Location: Accession/Order Number: [id number] Exam Date: 08/06/2025 16:27 Report Date: 08/06/2025 [...] Stanley M.D. 08/06/2025 5:27 PM Dictation Location: [facility]29 Electronically authenticated by: [id number] Y Date: 7:27 Dictated By: Elias Stanley M.D. Signed By:08/06/25 173 DD/ 172 TD/TT: Engineering Aid: Authorizing ProviderResult TypeResult StatusCorey Tamanna DOCLINISYNC IMAGINGFinal Result * US OB CERVICAL LENGTH (08/06/2025 5:26 PM EDT)Anatomical RegionLaterality ModalityOtherSpecimen (Source)Anatomical Location / LateralityCollection Method / VolumeCollection TimeReceived Time08/06/2025 5:26 PM EDT Narrative 08/07/2025 2:51 PM EDT [facility] ?[address] ? [place] [address] ? Ultrasound Report ? Signed ? Patient: RENNY TERRAZAS N ? MR#: [id number] ?? : 2000 ?Acct:[id number] ?? Age/Sex: 24 / F ?ADM Date: ?? Loc: [facility] ??258-1 ? Attending Dr: Jacob Nolen D.O. ? Ordering Physician: Jacob Nolen D.O. ?? Date of Service: 08/06/25 ?? Procedure(s): US OB cervical length ?? Accession Number(s): [id number] ? cc: Jacob Nolen D.O.; Geni Piedra M.D. ? [facility] ? [address] ? [place] [address] ? Patient Name: ?? RENNY TERRAZAS ? MRN: [id number] ? date: 2000 ?Sex: F ?? Assigned Patient Location: [facility] ?? Current Patient Location: [facility] ?? Accession/Order Number: [id number] ?? Exam Date: 08/06/2025 ??16:27 ?Report Date: [...] somatic motion is documented by ?? the model maker apprentice. ??Cephalic position with longitudinal lie. ??Amniotic fluid ?? 10.8 cm which is between the 5th and 95th percentile ? Cervical length 3.1 cm, closed. ? US/US OB cervical length ?? IMPRESSION: Single live intrauterine with closed cervix ? Impression dictated by: Elias Stanley M.D. ??08/06/2025 5:26 PM ? Dictation Location: RADIO-PC-29 ? Electronically authenticated by: [id number] ??Y ?? Date: 08/06/2025 ??17:26 ? Dictated By: ?Elias Stanley M.D. ? Signed By: ?08/07/25 1451 ? DD/ 1726 ? TD/TT: ? Engineering Aid: Procedure Note Radiology, Radiologist, - 08/07/2025 [place] [address] Ultrasound Report Signed Patient: RENNY TERRAZAS NMR#: [id number] : 2000Acct:[id number] Age/Sex: Date: Loc: [facility] 258-[address]: Jacob Nolen D.O. Ordering Physician: Jacob Nolen D.O. Date of Service: 08/06/25 Procedure(s): US OB cervical length Accession Number(s): [id number] cc: Jacob Nolen D.O.; Geni Piedra M.D. [place] [id number] Patient Name: RENNY TERRAZAS MRN: [id number] date: 2000 Sex: F Assigned Patient Location: [facility] Current Patient Location: [facility] Accession/Order Number: [id number] Exam Date: 08/06/2025 16:27 Report Date: 08/06/2025 17:26 At the request of: JACOB NOLEN DO Procedure: US OB cervical length OB ULTRASOUND CERVICAL LENGTH INDICATION: Decreased movement x1 day COMPARISON: None FINDINGS: Within the uterus, there is a single live intrauterine with heart rate 134 beats per minutes. somatic motion is documentedby the model maker apprentice. Cephalic position with longitudinal lie. Amniotic fluid 10.8 cm which is between the 5th and 95th percentile Cervical length 3.1 cm, closed. US/US OB cervical length IMPRESSION: Single live intrauterine with closed cervix Impression dictated by: Elias Stanley M.D. 08/06/2025 5:26 PM Dictation Location: [employer] Electronically authenticated by: [id number] Y Date: 7:26 Dictated By: Elias Stanley M.D. Signed By:08/07/25 1451 DD/ 1726 TD/TT: Engineering Aid: Authorizing ProviderResult TypeResult StatusCorey Tamanna DOCLINISYNC IMAGINGFinal Result from Last 3 Months Additional Health Concerns Active ProblemsNoted DateDiagnosed DateOB Rgveoffrc67/17/2025 Insurance Care Teams Team MemberRelationshipSpecialtyStart DateEnd Date Geni Piedra DO [address] [place] [address] PCP - GeneralInternal Medicine06/07/25 Jacob Nolen DO [address] [place] [address] Referring PhysicianObstetrics and Gynecology08/08/25
[2025-09-08 21:25] VITALS: TEMP 36.3
[2025-09-08 21:26] VITALS: BP 131/73; PULSE 105
[2025-09-08 21:27] LABS: Glucose Urine UA NEGATIVE (NEGATIVE)
[2025-09-08 21:33] LABS: Cast Seen? NONE SEEN #/LPF (NONE SEEN); Crystals Seen? None Seen #/HPF (None Seen); Urine Culture Indicated NO
[2025-09-08 21:53] VITALS: BP 113/73; PULSE 112; TEMP 35.8
[2025-09-08] MEDS: ACETAMINOPHEN 500 MG TABLET 1000 MG PO (22:53)
[2025-09-08 22:56] VITALS: BP 102/55; PULSE 83
== END 2025-09-09 | disposition home or self-care (01) ==
PROVIDERS: Admitting Provider Obstetrics & Gynecology; PCP Student in an Organized Health Care Education/Training Program; Visit Provider Obstetrics & Gynecology
DX: O47.03 False labor before 37 completed weeks of gestation, third trimester (principal); Z3A.36 36 weeks gestation of pregnancy
CPT/HCPCS: 59025; 81001; 96374; G0378; G0379; J2405

== ENCOUNTER 2025-09-17 17:57 | Observation (INO) | payer OTHER, SELFPAY ==
--- OUTSIDE RECORDS SUMMARY | 2025-09-04 12:00 | XMS_ITS | Encounter Summary ---
Author Organization [facility] Address [address] [place] [address] Care Team Providers Care Dynamometer Mechanic Name Role Phone DamionGeni bocanegra Primary Care Provider [phone] Mitchel Nolen DO Unavailable Encounter Details DateTypeDepartmentCare Team (Latest Contact Info)Lagstnnrfnx99/21/2025 1:00 PM EDTAncillary Procedure [facility] [address] [place] [address] [place] [address] size inconsistent with dates ([facility]) Social History Tobacco UseTypesPacks/DayYears UsedDateSmoking Tobacco: NeverAlcohol UseStandard Drinks/WeekCommentsNot Currently0 (1 standard drink = 0.6 oz pure alcohol) caffeine intake: 1 coffee/dayEstimated Date of DeliveryCommentsYes 5Based on last menstrual period of 12/26/2024Sex and Gender Information ValueDate RecordedSex Assigned at BirthNot on fileLegal SlbEpafok35/15/2023 6:52 PM EDTGender IdentityNot on fileSexual OrientationNot on fileOccupationIndustry Job Start DateJob End DateNot on fileNot on fileNot on fileNot on filedocumented as of this encounter Plan of Treatment Not on file documented as of this encounter Goals GoalPatient Goal TypeAssociated ProblemsRecent ProgressPatient-Stated?Author Reminders Care PlanOB RemindersAlexandra Lizama RNdocumented as of this encounter Procedures Procedure NamePriorityDate/TimeAssociated DiagnosisCommentsUS OB FOLLOW UP TRANSABDOMINAL QOYJUDNGImmxnvd56/21/2025 1:24 PM EDT size inconsistent with dates ([facility]) documented in this encounter Results * US [...] 25, 2025).. TRANSCRIBED BY: ELECTRONICALLY SIGNED BY: Jole Coronado MD Authorizing ProviderResult TypeResult StatusKristina Audra NPIMG OB US PROCEDURESFinal Result documented in this encounter Visit Diagnoses Diagnosis size inconsistent with dates ([facility]) documented in this encounter Additional Health Concerns Active ProblemsNoted DateDiagnosed DateOB Ynvyhmmax60/17/2025 documented as of this encounter Care Teams Team MemberRelationshipSpecialtyStart DateEnd Date Geni Piedra DO [address] [place] [address] PCP - GeneralInternal Medicine06/07/25 Mitchel Nolen DO [address] [place] [address] [place] [address] Referring PhysicianObstetrics and Gynecology08/08/25documented as of this encounter
--- OUTSIDE RECORDS SUMMARY | 2025-09-04 12:30 | XMS_ITS | Encounter Summary ---
Author Organization [facility] Address [address] [place] [address] Care Team Providers Care Shoe Repairman Name Role Phone DamionGeni bocanegra Primary Care Provider [phone] Mitchel Nolen DO Unavailable Reason for Visit * ReasonCommentsRoutine Visit Encounter Details DateTypeDepartmentCare Team (Latest Contact Info)Oewicjqsvgc63/21/2025 1:30 PM EDTRoutine [facility] [address] [place] [phone] Mitchel Nolen DO [address] [facility] [address] [place]nie [place], [facility]11 Third trimester ([facility]); 36 weeks gestation of ([facility]); Exposure to STD Social History Tobacco UseTypesPacks/DayYears UsedDateSmoking Tobacco: NeverAlcohol UseStandard Drinks/WeekCommentsNot Currently0 (1 standard drink = 0.6 oz pure alcohol) caffeine intake: 1 coffee/dayEstimated Date of DeliveryCommentsYes 5Based on last menstrual period of 12/26/2024Sex and Gender Information ValueDate RecordedSex Assigned at BirthNot on fileLegal PceXojixq39/15/2023 6:52 PM EDTGender IdentityNot on fileSexual OrientationNot on fileOccupationIndustry Job Start DateJob End DateNot on fileNot on fileNot on fileNot on filedocumented as of this encounter Last Filed Vital Signs Vital SignReadingTime TakenCommentsBlood Ytofjcqc107/7010 1:43 PM EDT Pulse--Temperature--Respiratory Rate--Oxygen Saturation--Inhaled Oxygen Concentration--Oxyeqc12.3 kg (133 lb)09/04/2025 1:43 PM EDTHeight--Body Mass Index22.1308 12:00 PM EDTdocumented in this encounter Progress Notes * Connie Wylie LPN - 09/04/2025 1:30 PM EDT Reason for Appointment: Patient ID: Renny Kowalski is a 24 y.o. female who presents for Routine Visit Patient presents today for Return OB appointment. MEDICATIONS Current Outpatient Medications Medication Instructions ondansetron (ZOFRAN) 4 mg, Every 6 hours MV-Min-Fe Fum-FA-DHA ( 1 PO) 1 tablet, Daily pyridoxine (VITAMIN B-6) 25 mg, Oral, Every 8 hours ALLERGIES No Known Allergies PROBLEMS Active Ambulatory [...] Constitutional: Appearance: Normal appearance. She is well-developed. Genitourinary: Vulva normal. Cardiovascular: Rate and Rhythm: Normal rate and [...] nursing note reviewed. Exam conducted with a recreation facility attendant present. Vitals: Estimated body mass index is 22.13 kg/m?? as calculated from the following: Height as of 06/30/21: 5' 5 . Weight as of this encounter: 133 lb. BP: 112/70 Patient's last menstrual period was 12/26/2024. Assessment/Plan ICD-10-CM 1. Third trimester ([facility]) Z34.93 CULTURE, GROUP B STREP WITH SUSCEPTIBLITY CULTURE, GROUP B STREP WITH SUSCEPTIBLITY 2. 36 weeks gestation of ([facility]) Z3A.36 POCT urinalysis dipstick manually resulted 3. Exposure to STD Z20.2 SURESWAB(R) ADVANCED VAGINITIS PLUS, TMA CHLAMYDIA TRACHOMATIS (GENITO/STI) Neisseria gonorrhea DNA probe, direct Patient is doing well but has complaints of being tired and having maternal discomfort due to . Patient verbalized frequent movement and was instructed to perform kick counts three times per day. labor precautions were given, LARC consent was signed/declined, and GBS was obtained. Cervical check was performed and patient is 2cm dilated. Orders Placed This Encounter Procedures CHLAMYDIA TRACHOMATIS (GENITO/STI) Neisseria gonorrhea DNA probe, direct CULTURE, GROUP B STREP WITH SUSCEPTIBLITY POCT urinalysis dipstick manually resulted Follow Up: Patient is to return to office in 1 week for routine OB appointment Documented by Connie Wylie LPN on behalf of: Mitchel Nolen DO documented in this encounter Plan of Treatment Not on file documented as of this encounter Goals GoalPatient Goal TypeAssociated ProblemsRecent ProgressPatient-Stated?Author Reminders Care PlanOB RemindersNoAlexandra Wang, RNdocumented as of this encounter Procedures Procedure NamePriorityDate/TimeAssociated DiagnosisCommentsPOCT URINALYSIS OYHUOXNSFsrbzgx72/21/2025 1:49 PM EDT 36 weeks gestation of ([facility]) CULTURE, GROUP B STREP WITH YZDZFIOFDYELRCdqkkmr62/21/2025 1:41 PM EDT Third trimester ([facility]) PAP TEST, DHUKJTEPSwtaena96/02/2025 12:00 AM EDTdocumented in this encounter Results * POCT urinalysis dipstick manually resulted (09/04/2025 1:49 PM EDT)Component ValueRef RangeTest MethodAnalysis TimePerformed AtPathologist SignatureColor, UAYellowClarity, UAClearGlucose, UANegativeNegative - 2000(110) ++++ mg/dL Bilirubin, UANegativeNegative - 4(70) +++ mg/dLKetones, UANegativeNegative - 160(16) ++++ mg/dLSpec Grav, UA1.0201 - 1.03Blood, UANegativeNegative - 50 Zhen/mcLpH, UA5.65 - 9Protein, UANegativeNegative - 2000(20) ++++ mg/dL Urobilinogen, UA1.00.2 - 12 mg/dLLeukocytes, UANegativeNegative - 500+++ Gucci/mcLNitrite, UANegativeNegative - PositiveSpecimen (Source)Anatomical Location / LateralityCollection Method / VolumeCollection TimeReceived Time Urine09/04/2025 1:49 PM EDT Narrative Authorizing ProviderResult TypeResult StatusCorey Tamanna DOPOINT OF CARE TEST ENTER/EDIT ORDERABLESFinal Result * CULTURE, GROUP B STREP WITH SUSCEPTIBLITY (09/04/2025 1:41 PM EDT)Specimen (Source)Anatomical Location / LateralityCollection Method / VolumeCollection TimeReceived LthmEech99/21/2025 1:41 PM EDT Narrative Authorizing ProviderResult TypeResult StatusCorey Tamanna DOLAB BLOOD ORDERABLES Final ResultPerforming OrganizationAddressCity/State/ZIP CodePhone Number EXTERNAL LAB * PAP TEST, EXTERNAL (02/14/2025 12:00 AM EDT) Narrative Authorizing ProviderResult TypeResult StatusCorey Tamanna DOLAB CYTOLOGY ORDERABLESFinal ResultPerforming OrganizationAddressCity/State/ZIP CodePhone Number EXTERNAL LAB documented in this encounter Visit Diagnoses Diagnosis Third trimester ([facility]) state, incidental 36 weeks gestation of ([facility]) Exposure to STD documented in this encounter Additional Health Concerns Active ProblemsNoted DateDiagnosed DateOB Wzhlbvtqu38/17/2025 documented as of this encounter Care Teams Team MemberRelationshipSpecialtyStart DateEnd Date Geni Piedra DO [address] [place] [address] PCP - GeneralInternal Medicine06/07/25 Mitchel Nolen DO [address] [place] [address] Referring PhysicianObstetrics and Gynecology08/08/25documented as of this encounter
--- OUTSIDE RECORDS SUMMARY | 2025-09-11 12:20 | XMS_ITS | Encounter Summary ---
Author Organization [facility] Address [address] [place] [address] Care Team Providers Care S Iron Worker Name Role Phone DamionGeni bocanegra Primary Care Provider [phone] Mitchel Nolen DO Unavailable Reason for Visit * ReasonCommentsRoutine Visit Encounter Details DateTypeDepartmentCare Team (Latest Contact Info)Oxaxdtcctgs74/28/2025 1:20 PM EDTRoutine [facility] [address] [place] [phone] Mitchel Nolen DO [address] [place], [facility]11 37 weeks gestation of ([facility]); Third trimester ([facility]) Social History Tobacco UseTypesPacks/DayYears UsedDateSmoking Tobacco: NeverAlcohol UseStandard Drinks/WeekCommentsNot Currently0 (1 standard drink = 0.6 oz pure alcohol) caffeine intake: 1 coffee/dayEstimated Date of DeliveryCommentsYes 5Based on last menstrual period of 12/26/2024Sex and Gender Information ValueDate RecordedSex Assigned at BirthNot on fileLegal QvrGfibau15/15/2023 6:52 PM EDTGender IdentityNot on fileSexual OrientationNot on fileOccupationIndustry Job Start DateJob End DateNot on fileNot on fileNot on fileNot on filedocumented as of this encounter Last Filed Vital Signs Vital SignReadingTime TakenCommentsBlood Sdnmkwyp736/7010/ 1:25 PM EDT Pulse--Temperature--Respiratory Rate--Oxygen Saturation--Inhaled Oxygen Concentration--Hogpos12.7 kg (133 lb 12.8 oz)09/11/2025 1:25 PM [...] nursing note reviewed. Exam conducted with a kitchen cleaner present. Vitals: Estimated body mass index is 22.27 kg/m?? as calculated from the following: Height as of 06/30/21: 5' 5 . Weight as of this encounter: 133 lb 12.8 oz. BP: 110/70 Patient's last menstrual period was 12/26/2024. Assessment/Plan ICD-10-CM 1. 37 weeks gestation of ([facility]) Z3A.37 POCT urinalysis dipstick manually resulted 2. Third trimester ([facility]) Z34.93 POCT urinalysis dipstick manually resulted [...] this encounter Procedures Procedure NamePriorityDate/TimeAssociated DiagnosisCommentsPOCT URINALYSIS KMYSGMKMWjokskr82/28/2025 1:31 PM EDT 37 weeks gestation of ([facility]) Third trimester ([facility]) documented in this encounter Results * [...] Visit Diagnoses Diagnosis 37 weeks gestation of ([facility] Third trimester ([facility]) state, incidental documented in this encounter Additional Health Concerns Active ProblemsNoted DateDiagnosed DateOB Qfrypdmcx22/17/2025 documented as of this encounter Care Teams Team MemberRelationshipSpecialtyStart DateEnd Date Geni Piedra DO [address] [place] [phone] PCP - GeneralInternal Medicine06/07/25 Mitchel Nolen DO [address] [place] [address] Referring PhysicianObstetrics and Gynecology08/08/25documented as of this encounter
--- OUTSIDE RECORDS SUMMARY | 2025-09-17 08:40 | XMS_ITS | Encounter Summary ---
Author Organization [facility] Address [address] [place] [address] Care Team Providers Care Electron Beam Welder Setter Name Role Phone DamionGeni bocanegra Primary Care Provider [phone] Mitchel Nolen DO Unavailable Reason for Visit * ReasonCommentsRoutine Visit Encounter Details DateTypeDepartmentCare Team (Latest Contact Info)Rjeepufdrxz56/03/2025 8:40 AM ESTRoutine [facility] [address] [phone] Mitchel Nolen DO [address] [facility] [address] Bonnie [place], [facility]11 Third trimester ([facility]); 37 weeks gestation of ([facility]) Social History Tobacco UseTypesPacks/DayYears UsedDateSmoking Tobacco: NeverAlcohol UseStandard Drinks/WeekCommentsNot Currently0 (1 standard drink = 0.6 oz pure alcohol) caffeine intake: 1 coffee/dayEstimated Date of DeliveryCommentsYes 5Based on last menstrual period of 12/26/2024Sex and Gender Information ValueDate RecordedSex Assigned at BirthNot on fileLegal QijZmovvz71/15/2023 6:52 PM EDTGender IdentityNot on fileSexual OrientationNot on fileOccupationIndustry Job Start DateJob End DateNot on fileNot on fileNot on fileNot on filedocumented as of this encounter Last Filed Vital Signs Vital SignReadingTime TakenCommentsBlood Htegjjrr856/6011 8:43 AM EST Pulse--Temperature--Respiratory Rate--Oxygen Saturation--Inhaled Oxygen Concentration--Jhhruy10.1 kg (134 lb 12.8 oz)09/17/2025 8:43 AM [...] nursing note reviewed. Exam conducted with a reel tender present. Vitals: Estimated body mass index is 22.43 kg/m?? as calculated from the following: Height as of 06/30/21: 5' 5 . Weight as of this encounter: 134 lb 12.8 oz. BP: 108/60 Patient's last menstrual period was 12/26/2024. Assessment/Plan ICD-10-CM 1. Third trimester ([facility]) Z34.93 2. 37 weeks gestation of ([facility]) Z3A.37 POCT urinalysis dipstick manually resulted Patient [...] this encounter Procedures Procedure NamePriorityDate/TimeAssociated DiagnosisCommentsPOCT URINALYSIS DFKMSTHNRjbjsbs37/03/2025 8:51 AM EST 37 weeks gestation of ([facility]) documented in this encounter Results * [...] this encounter Visit Diagnoses Diagnosis Third trimester ([facility]) state, incidental 37 weeks gestation of ([facility]) documented in this encounter Additional Health Concerns Active ProblemsNoted DateDiagnosed DateOB Dqbglisyh16/17/2025 documented as of this encounter Care Teams Team MemberRelationshipSpecialtyStart DateEnd Date Geni Piedra DO [address] [place] [phone] PCP - GeneralInternal Medicine06/07/25 Mitchel Nolen DO [address] [place] [address] [place] [address] Referring PhysicianObstetrics and Gynecology08/08/25documented as of this encounter
--- OUTSIDE RECORDS SUMMARY | 2025-09-17 18:01 | XMS_ITS | Encounter Summary ---
Author Organization [facility] Address [address] [place] [address] Care Team Providers Care Pumper Brewery Name Role Phone JeromeGeni carias Primary Care Provider [phone] Mitchel Nolen DO Unavailable Encounter Details DateTypeDepartmentCare Team (Latest Contact Info)Edukornesiy88/03/2025Telephone [facility] [address] [facility] [place] [phone] Mitchel Nolen DO [address] [place] [place], [place] [id number] Social History Tobacco UseTypesPacks/DayYears UsedDateSmoking Tobacco: NeverAlcohol UseStandard Drinks/WeekCommentsNot Currently0 (1 standard drink = 0.6 oz pure alcohol) caffeine intake: 1 coffee/dayEstimated Date of DeliveryCommentsYes 5Based on last menstrual period of 12/26/2024Sex and Gender Information ValueDate RecordedSex Assigned at BirthNot on fileLegal VyaWozmfz92/15/2023 6:52 PM EDTGender IdentityNot on fileSexual OrientationNot on fileOccupationIndustry Job Start DateJob End DateNot on fileNot on fileNot on fileNot on filedocumented as of this encounter Miscellaneous Notes * Telephone Encounter - Leyda Villanueva LPN - 09/17/2025 3:57 PM EST Patient called and left a voicemail that she was in office this morning and she has been shu since 230 pm and around 340 they picked up to every 3 to 6 mins and not sure if she needs to head in or stay at home.. Patient call was returned and she was advised that she will need to start heading to [facility] at this time. PVU and called Sydney and gave report to Sydney. documented in this encounter Plan of Treatment Not on file documented as of this encounter Goals GoalPatient Goal TypeAssociated ProblemsRecent ProgressPatient-Stated?Author Reminders Care PlanOB RemindersNoAlexandra Wang RNdocumented as of this encounter Visit Diagnoses Not on filedocumented in this encounter Additional Health Concerns Active ProblemsNoted DateDiagnosed DateOB Uclanajtt83/17/2025 documented as of this encounter Care Teams Team MemberRelationshipSpecialtyStart DateEnd Date Geni Piedra DO [address] [place] [address] PCP - GeneralInternal Medicine06/07/25 Mitchel Nolen DO [address] [place] [address] Referring PhysicianObstetrics and Gynecology08/08/25documented as of this encounter
--- OUTSIDE RECORDS SUMMARY | 2025-09-17 18:01 | XMS_ITS | Encounter Summary ---
Author Organization [facility] Address [address] [place] [address] Care Team Providers Care Boat Finisher Name Role Phone JeromeGeni carias Primary Care Provider [phone] Mitchel Nolen DO Unavailable Encounter Details DateTypeDepartmentCare Team (Latest Contact Info)Kydrehcxyxb36/25/2025Clinisync Result Encounter [facility] External Department Unsolicited Mitchel Nolen DO [address] [facility] [address] [place] [place], [place] [phone] Social History Tobacco UseTypesPacks/DayYears UsedDateSmoking Tobacco: NeverAlcohol UseStandard Drinks/WeekCommentsNot Currently0 (1 standard drink = 0.6 oz pure alcohol) caffeine intake: 1 coffee/dayEstimated Date of DeliveryCommentsYes 5Based on last menstrual period of 12/26/2024Sex and Gender Information ValueDate RecordedSex Assigned at BirthNot on fileLegal ZdqSatyan36/15/2023 6:52 PM EDTGender IdentityNot on fileSexual OrientationNot on fileOccupationIndustry Job Start DateJob End DateNot on fileNot on fileNot on fileNot on filedocumented as of this encounter Plan of Treatment Not on file documented as of this encounter Goals GoalPatient Goal TypeAssociated ProblemsRecent ProgressPatient-Stated?Author Reminders Care PlanOB RemindersAlexandra Lizama RNdocumented as of this encounter Procedures Procedure NamePriorityDate/TimeAssociated DiagnosisCommentsTBH URINE MICROSCOPIC YCZIIweabzx95/25/2025 9:21 PM EDT TBH UA (CLEAN/CATCH) SEWAGE PLANT ATTENDANT/MICRO IF IND.Ghwguna0009/08/2025 9:21 PM EDT documented in this encounter Results * (ABNORMAL) [facility] URINE MICROSCOPIC ONLY (09/08/2025 9:21 PM EDT)ComponentValue Ref RangeTest MethodAnalysis TimePerformed AtPathologist SignatureTBH WBC0-2 (A)NONE SEEN #/HPFTBHTBH RBCNONE SEEN0 - 2 #/HPFTBHBACTERIA URINETRACE(A)NONE SEEN #/HPFTBHMUCUS URINENONE SEENNONE SEENTBHSQUAMOUS EPITHELIAL CELL URINE MODERATE(A)NONE/RARE #/LPFTBHCRYSTALS SEEN?None SeenNone Seen #/HPFTBHCAST SEEN?NONE SEENNONE SEEN #/LPFTBHURINE CULTURE INDICATEDNOTBHSpecimen (Source) Anatomical Location / LateralityCollection Method / VolumeCollection Time Received Time09/08/2025 9:21 PM EDT1 9:24 PM EDT Narrative CLIN[facility]NC - 09/08/2025 9:33 PM EDT Authorizing ProviderResult TypeResult StatusCorey Tamanna DOCLINISYNCFinal Result Performing OrganizationAddressCity/State/ZIP CodePhone Number CLINISYNC [facility] * (ABNORMAL) [facility] UA (CLEAN/CATCH) SEWAGE PLANT ATTENDANT/MICRO IF IND. (09/08/2025 9:21 PM EDT) ComponentValueRef RangeTest MethodAnalysis TimePerformed AtPathologist SignatureCOLOR URINELT. YELLOWYELLOWTBHCLARITY URINECLEARCLEARTBHSPECIFIC GRAVITY URINE1.0101.005 - 1.025TBHPH URINE7.55.0 - 9.0TBHPROTEIN URINENEGATIVE NEG/TRACE mg/dLTBHGLUCOSE URINE UANEGATIVENEGATIVE mg/dLTBHBILIRUBIN URINE NEGATIVENEGATIVETBHKETONES URINENEGATIVENEGATIVE mg/dLTBHBLOOD URINENEGATIVE NEGATIVETBHNITRITE URINENEGATIVENEGATIVETBHUROBILINOGEN URINE0.20.2 - 1.0 EU/dLTBHLEUKOCYTE ESTERASE URINETRACE(A)NEGATIVETBHURINE MICROSCOPIC INDICATED YESTBHSpecimen (Source)Anatomical Location / LateralityCollection Method / VolumeCollection TimeReceived Time09/08/2025 9:21 PM EDT1 9:24 PM EDT Narrative [facility] - 09/08/2025 9:33 PM EDT Authorizing ProviderResult TypeResult StatusCorey Tamanna DOCLINISYNCFinal Result Performing OrganizationAddressCity/State/ZIP CodePhone Number CLINISYNC [facility] documented in this encounter Visit Diagnoses Not on filedocumented in this encounter Additional Health Concerns Active ProblemsNoted DateDiagnosed DateOB Whdcfblqv82/17/2025 documented as of this encounter Care Teams Team MemberRelationshipSpecialtyStart DateEnd Date Geni Piedra DO [address] [place] [address] PCP - GeneralInternal Medicine06/07/25 Mitchel Nolen DO [address] [place] [address] Referring PhysicianObstetrics and Gynecology08/08/25documented as of this encounter
--- OUTSIDE RECORDS SUMMARY | 2025-09-17 18:01 | XMS_ITS | Encounter Summary ---
Author Organization [facility] Address [address] [place] [address] Care Team Providers Care Director Cloud Transformation Name Role Phone DamionGeni bocanegra Primary Care Provider [phone] Mitchel Nolen DO Unavailable Encounter Details DateTypeDepartmentCare Team (Latest Contact Info)Ehkcegqzfik40/03/2025Bamboo flowsheet [facility] [address] [facility] [place] [phone] Mitchel Nolen DO [address] [facility] [address] Bonnie [place], [facility]11 Social History Tobacco UseTypesPacks/DayYears UsedDateSmoking Tobacco: NeverAlcohol UseStandard Drinks/WeekCommentsNot Currently0 (1 standard drink = 0.6 oz pure alcohol) caffeine intake: 1 coffee/dayEstimated Date of DeliveryCommentsYes 5Based on last menstrual period of 12/26/2024Sex and Gender Information ValueDate RecordedSex Assigned at BirthNot on fileLegal IwtUlqhyb44/15/2023 6:52 PM EDTGender IdentityNot on fileSexual OrientationNot on fileOccupationIndustry Job Start DateJob End DateNot on fileNot on fileNot on fileNot on filedocumented as of this encounter Plan of Treatment Not on file documented as of this encounter Goals GoalPatient Goal TypeAssociated ProblemsRecent ProgressPatient-Stated?Author Reminders Care PlanOB RemindersNoClark, Alexandra, RNdocumented as of this encounter Visit Diagnoses Not on filedocumented in this encounter Additional Health Concerns Active ProblemsNoted DateDiagnosed DateOB Olojypkud57/17/2025 documented as of this encounter Care Teams Team MemberRelationshipSpecialtyStart DateEnd Date Geni Piedra DO [address] [place] [phone] PCP - GeneralInternal Medicine06/07/25 Mitchel Nolen DO [address] [facility] [place] [address] Referring PhysicianObstetrics and Gynecology08/08/25documented as of this encounter
--- OUTSIDE RECORDS SUMMARY | 2025-09-17 18:01 | XMS_ITS | Clinical Summary ---
Author Organization [facility] Address [address] [place] [address] Care Team Providers Care Sweep Press Operator Name Role Phone Geni Piedra Primary Care Provider [phone] Jacob Nolen DO Unavailable Allergies No known active allergies Medications MedicationSigDispense QuantityRefillsLast FilledStart DateEnd DateStatus ondansetron (Zofran) 4 MG tablet Take 4 mg by mouth every 6 (six) hours5Active MV-Min-Fe Fum-FA-DHA ( 1 PO) Take 1 tablet by mouth DailyActive pyridoxine (Vitamin B-6) 25 MG tablet Indications:NauseaTake 1 tablet (25 mg) by mouth every 8 (eight) hours 90 tablet 501/6Active magnesium oxide (Mag-Ox) 400 MG tablet Take 1 tablet by mouth Daily5Active omeprazole (PriLOSEC) [address] capsule Take 20 mg by mouth Daily5Active Encounters DateTypeDepartmentCare FnwmLhyneazuvah88/03/2025 8:40 AM ESTRoutine [facility] [place] [facility] [address] [place] [address] Jacob Nolen DO Third trimester ([facility]); 37 weeks gestation of ([facility])09/17/2025Telephone [facility] [place] [facility] [address] [place] [address] Jacob Nolen, 5Bamboo flowsheet [facility] [place] [facility] [address] [facility] [place] [address] Jacob Nolen, 09/11/2025 1:20 PM EDTRoutine [facility] [place] [facility] [address] [facility] [place] [address] Jacob Nolen, DO 37 weeks gestation of ([facility]); Third trimester ([facility])09/08/2025linisync Result Encounter [facility] External Department Unsolicited Jacob Nolen, DO 09/05/2025bstract [facility] [place] [facility] [address] [facility] [place] [address] Kathrin Walters MA 09/04/2025 1:30 PM EDTRoutine [facility] [place] [facility] [address] [place] [address] Jacob Nolen, Third trimester ([facility]); 36 weeks gestation of ([facility]); Exposure to STD09/04/2025 1:00 PM EDTAncillary Procedure [facility] [address] [place] [address] size inconsistent with dates ([facility])09/04/2025linisync Result Encounter [facility]OM[facility] External Department Unsolicited Jacob Nolen, DO 08/20/2025 1:50 PM EDTRoutine [facility] [address] [place] [address] Flavia Zhu NP Nausea (Primary Dx); Third trimester ([facility]); 33 weeks gestation of ([facility])08/20/20250005Eantjf63/06/2025Bamboo flowsheet [facility] [place] [facility] [address] [place] [address] Flavia Zhu NP 08/06/2025 2:20 PM EDTRoutine [facility] [place] [facility] [address] [facility] [place] [address] Jacob Nolen, DO size inconsistent with dates ([facility]) (Primary Dx); Third trimester ([facility]); 31 weeks gestation of ([facility])5Clinisync Result Encounter [facility]OM[facility] External Department Unsolicited Jacob Nolen, DO 5Clinisync Result Encounter [facility]OM[facility] External Department Unsolicited TamannaJacob mercado, DO 5Bamboo flowsheet [facility] [place] [facility] [address] [place] [address] Jacob Nolen, DO 5Abstract [facility] [place] [facility] [address] [facility] [place] [address] Jacob Nolen, DO 07/23/2025 9:50 AM EDTRoutine [facility] [place] [facility] [address] [facility] [place] [address] Flavia Zhu, MARCUS Third trimester ([facility]); 29 weeks gestation of ([facility])07/23/2025 9:00 AM EDTAncillary Procedure [facility] [address] [facility] [place] [address] Size of fetus inconsistent with dates in second trimester ([facility])07/23/2025 Telephone [facility] [address] [facility] [place] [address] Hedy Nam LPN 07/09/2025 9:30 AM EDTRoutine [facility] [place] [facility] [address] [facility] [address] Eva Degroot PA Size of fetus inconsistent with dates in second trimester ([facility]) (Primary Dx); Second trimester ([facility]); 27 weeks gestation of ([facility])07/09/2025amboo flowsheet [facility] [place] [facility] [address] [address] Eva Degroot PA 06/28/2025bstract [facility] [place] [facility] [address] [place] [address] Jacob Nolen DO 06/28/2025Telephone [facility] [place] [facility] [address] [place] [address] Maribeth Li LPN from Last 3 Months Family History Medical HistoryRelationNameCommentsNo Known ProblemsDaughterNo Known Problems FatherMelanomaMaternal GrandfatherNo Known ProblemsMotherDiabetesPaternal GrandfatherNo Known ProblemsSisterRelationNameStatusCommentsDaughterFatherAlive Maternal GrandfatherMotherAlivePaternal GrandfatherSisterx1 Social History Tobacco UseTypesPacks/DayYears UsedDateSmoking Tobacco: Never Tobacco Cessation:Counseling Given: Not Answered Alcohol UseStandard Drinks/WeekCommentsNot Currently0 (1 standard drink = 0.6 oz pure alcohol)caffeine intake: 1 coffee/dayEstimated Date of Delivery BhzuacaiKvw85/18/2025Based on last menstrual period of 12/26/2024Sex and Gender InformationValueDate RecordedSex Assigned at BirthNot on fileLegal SexFemale 01/27/2023 6:52 PM EDTGender IdentityNot on fileSexual OrientationNot on file OccupationIndustryJob Start DateJob End DateNot on fileNot on fileNot on fileNot on file Last Filed Vital Signs Vital SignReadingTime TakenCommentsBlood Jiwjjmwi906/6009/17/2025 8:43 AM EST Pulse--Temperature--Respiratory Rate--Oxygen Saturation--Inhaled Oxygen Concentration--Ywnewy29.1 kg (134 lb 12.8 oz)09/17/2025 8:43 AM DIRIncekj591.1 cm (5' 5 )06/30/2021 12:00 PM EDTBody Mass Index22.43006/30/2021 12:00 PM EDT Plan of Treatment Not on file Goals GoalPatient Goal TypeAssociated ProblemsRecent ProgressPatient-Stated?Author Reminders Care PlanOB Alexandra Hooker RN Procedures Procedure NamePriorityDate/TimeAssociated DiagnosisCommentsPOCT URINALYSIS XGTDEHHCNptwlst65/03/2025 8:51 AM EST 37 weeks gestation of ([facility]) POCT URINALYSIS UMKEIIPTVvhcuth93/28/2025 1:31 PM EDT 37 weeks gestation of ([facility]) Third trimester ([facility]) [facility] URINE MICROSCOPIC HNARQhcubdv41/25/2025 9:21 PM EDT [facility] UA (CLEAN/CATCH) SCIENTIFIC HELPER/MICRO IF IND.Qgaiyps4909/08/2025 9:21 PM EDT POCT URINALYSIS KUOEYECSWjlsjxo46/21/2025 1:49 PM EDT 36 weeks gestation of ([facility]) CULTURE, GROUP B STREP WITH XLCNJQKBJHCFWSfoklyv80/21/2025 1:41 PM EDT Third trimester ([facility]) STREP GP B CULTURE+VRZNMukmqyh57/21/2025 1:40 PM EDT US OB FOLLOW UP TRANSABDOMINAL SJRRRJQSHlaxdbj11/21/2025 1:24 PM EDT size inconsistent with dates ([facility]) POCT URINALYSIS TAYJQJZCTggnzyn29/06/2025 1:51 PM EDT Third trimester ([facility]) US OB BPP W NON-JDGDIU1008/06/2025 5:27 PM EDT US OB CERVICAL WNEBJC6708/06/2025 5:26 PM EDT POCT URINALYSIS SIDWPSCTIncuslj85/22/2025 2:43 PM EDT Third trimester ([facility]) POCT URINALYSIS ZGXRHIMEZawxgdl16/08/2025 9:27 AM EDT Third trimester ([facility]) US OB FOLLOW UP TRANSABDOMINAL PMFLAWYQZwpapcj44/08/2025 9:18 AM EDT Size of fetus inconsistent with dates in second trimester ([facility]) POCT URINALYSIS NVOIXTMSHcwelvg59/25/2025 9:57 AM EDT Second trimester ([facility]) from Last 3 Months Results * POCT urinalysis dipstick manually resulted (09/17/2025 8:51 AM EST) Only the most recent of7 resultswithin the time period is included. ComponentValueRef [...] Location / LateralityCollection Method / VolumeCollection TimeReceived QoheDxyyl95/03/2025 8:51 AM EST Narrative Authorizing ProviderResult TypeResult StatusCorey Tamanna DOPOINT OF CARE TEST ENTER/EDIT ORDERABLESFinal Result * (ABNORMAL) [facility] URINE MICROSCOPIC ONLY (09/08/2025 [...] 9:21 PM EDT1 9:24 PM EDT Narrative [facility] - 09/08/2025 9:33 PM EDT Authorizing ProviderResult TypeResult StatusCorey Tamanna DOCLINISYNCFinal Result Performing OrganizationAddressCity/State/ZIP CodePhone Number [facility] * (ABNORMAL) [facility] UA (CLEAN/CATCH) SCIENTIFIC HELPER/MICRO IF IND. (09/08/2025 9:21 PM EDT) ComponentValueRef RangeTest MethodAnalysis TimePerformed AtPathologist SignatureCOLOR URINELT. YELLOWYELLOWTBHCLARITY URINECLEARCLEARTBHSPECIFIC GRAVITY URINE1.0101.005 - 1.025TBHPH URINE7.55.0 - 9.0TBHPROTEIN URINENEGATIVE NEG/TRACE mg/dLTBHGLUCOSE URINE UANEGATIVENEGATIVE mg/dLTBHBILIRUBIN URINE NEGATIVENEGATIVETBHKETONES URINENEGATIVENEGATIVE mg/dLTBHBLOOD URINENEGATIVE NEGATIVETBHNITRITE URINENEGATIVENEGATIVETBHUROBILINOGEN URINE0.20.2 - 1.0 EU/dLTBHLEUKOCYTE ESTERASE URINETRACE(A)NEGATIVETBHURINE MICROSCOPIC INDICATED YESTBHSpecimen (Source)Anatomical Location / LateralityCollection Method / VolumeCollection TimeReceived Time09/08/2025 9:21 PM EDT1 9:24 PM EDT Narrative [facility] - 09/08/2025 9:33 PM EDT Authorizing ProviderResult TypeResult StatusCorey Tamanna DOCLINISYNCFinal Result Performing OrganizationAddressCity/State/ZIP CodePhone Number [facility] * CULTURE, GROUP B STREP WITH SUSCEPTIBLITY (09/04/2025 1:41 PM EDT)Specimen (Source)Anatomical Location / LateralityCollection Method / VolumeCollection TimeReceived SpbnWlaa13/21/2025 1:41 PM EDT Narrative Authorizing ProviderResult TypeResult StatusCorey Tamanna SORIA BLOOD ORDERABLES Final ResultPerforming OrganizationAddressCity/State/ZIP CodePhone Number [facility] * STREP GP B CULTURE+RFLX (09/04/2025 1:40 PM EDT)ComponentValueRef RangeTest MethodAnalysis TimePerformed AtPathologist SignatureSTREP GP B CULTURE+RFLX ??Strep Gp B Culture+Rflx TBHSTREP GP B CULTURE+RFLXNegativeTBHSTREP GP B CULTURE+RFLXCenters for Disease Control and Prevention (CDC) andTBHSTREP GP B CULTURE+RFLXAmerican Congress of Obstetricians and GynecologistsTBHSTREP GP B CULTURE+RFLX(ACOG) guidelines for prevention of group BTBHSTREP GP B CULTURE+RFLXstreptococcal (GBS) disease specify co-collection ofTBHSTREP GP B CULTURE+RFLXa vaginal and rectal swab specimen to maximizeTBHSTREP GP B CULTURE+RFLXsensitivity of GBS detection. Per the CDC and ACOG,TBHSTREP GP B CULTURE+RFLXswabbing both the lower vagina and rectumTBHSTREP GP B CULTURE+RFLXsubstantially increases the yield of detectionTBHSTREP GP B CULTURE+RFLXcompared with sampling the vagina alone.TBH STREP GP B CULTURE+RFLXPenicillin G, ampicillin, or cefazolin are indicatedTBH STREP GP B CULTURE+RFLXfor intrapartum prophylaxis of GBSTBHSTREP GP B CULTURE+RFLXcolonization. Reflex susceptibility testing should beTBHSTREP GP B CULTURE+RFLXperformed prior to use of clindamycin only on GBSTBHSTREP GP B CULTURE+RFLXisolates from penicillin-allergic women who areTBHSTREP GP B CULTURE+RFLXconsidered a high risk for anaphylaxis. Treatment withTBHSTREP GP B CULTURE+RFLXvancomycin without additional testing is warranted ifTBHSTREP GP B CULTURE+RFLXresistance to clindamycin is noted.TBHSTREP GP B CULTURE+RFLX Performed at: [facility]TBHST[facility]P GP B CULTURE+UOPA[address] [place], [place] [id number] GP B CULTURE+RFLXLab Director: Glenn Ceron PhD, Phone: [phone] (Source)Anatomical Location / Laterality Collection Method / VolumeCollection TimeReceived Time09/04/2025 1:40 PM EDT 09/04/2025 6:43 PM EDT Narrative [facility] - 09/09/2025 4:08 PM EDT Authorizing ProviderResult TypeResult StatusCorey Tamanna DOLAB BLOOD ORDERABLES Final ResultPerforming OrganizationAddressCity/State/ZIP CodePhone Number [facility] * OB follow up transabdominal approach (09/04/2025 1:24 [...] EDT Narrative 08/06/2025 5:30 PM EDT [facility] ?[address] ? [place] [address] ? Ultrasound Report ? Signed ? Patient: HILL,RENNY N ? MR#: [id number] ?? : 2000 ?Acct:[id number] ?? Age/Sex: 24 / F ?ADM Date: ?? Loc: [facility] ??258-1 ? Attending Dr: Jacob Nolen D.O. ? Ordering Physician: Jacob Nolen D.O. ?? Date of Service: 08/06/25 ?? Procedure(s): US OB BPP w non-stress ?? Accession Number(s): [id number] ? cc: Jacob Nolen D.O.; Geni Piedra M.D. ? [facility] ? [address] ? [place] [address] ? Patient Name: ?? RENNY TERRAZAS ? MRN: [facility]:[id number] ? date: 2000 ?Sex: F ?? Assigned Patient Location: [facility] ?? Current Patient Location: ? Accession/Order Number: [id number] ?? Exam Date: 08/06/2025 ??16:27 ?Report Date: [...] M.D. ??08/06/2025 5:27 PM ? Dictation Location: [facility]--29 ? Electronically authenticated by: [id number] ??Y ?? Date: 08/06/2025 ??17:27 ? Dictated By: ?Elias Stanley M.D. ? Signed By: ?08/06/25 1730 ? DD/ 1727 ? TD/TT: ? Manager Retail: Procedure Note Radiology, Radiologist, MD - 08/06/[address] [address] Ultrasound Report Signed Patient: RENNY TERRAZAS [facility]#: [id number] : 2000Acct:[id number] Age/Sex: 24 FADM Date: Loc: [facility] 258- Attending Dr: Jacob Nolen D.O. Ordering Physician: Jacob Nolen D.O. Date of Service: 08/06/25 Procedure(s): US OB BPP w non-stress Accession Number(s): [id number] cc: Jacob Nolen D.O.; Geni Piedra M.D. The [place] [id number] Patient Name: RENNY TERRAZAS MRN: [facility]:[id number] date: 2000 Sex: F Assigned Patient Location: [facility] Current Patient Location: Accession/Order Number: [id number] Exam Date: 08/06/2025 16:27 Report Date: 08/06/2025 [...] Stanley M.D. 08/06/2025 5:27 PM Dictation Location: [place] [address] Electronically authenticated by: [id number] Y Date: 7:27 Dictated By: Elias Stanley M.D. Signed By:08/06/25 173 DD/ 1727 TD/TT: Manager Retail: Authorizing ProviderResult TypeResult StatusCorey Tamanna DOCLINISYNC IMAGINGFinal Result * US OB CERVICAL LENGTH (08/06/2025 5:26 PM EDT)Anatomical RegionLaterality ModalityOtherSpecimen (Source)Anatomical Location / LateralityCollection Method / VolumeCollection TimeReceived Time08/06/2025 5:26 PM EDT Narrative 08/07/2025 2:51 PM EDT [facility] ?[address] [place] [address] ? [place] [address] ? Ultrasound Report ? Signed ? Patient: RENNY TERRAZAS ? MR#: [id number] ?? : 2000 ?Acct:[id number] ?? Age/Sex: 24 / F ?ADM Date: ?? Loc: [facility] ??258-1 ? Attending Dr: Jacob Nolen D.O. ? Ordering Physician: Jacob Nolen D.O. ?? Date of Service: 08/06/25 ?? Procedure(s): US OB cervical length ?? Accession Number(s): [id number] ? cc: Jacob Nolen D.O.; Geni Piedra M.D. ? [facility] ? [address] ? [place] [address] ? Patient Name: ?? RENNY TERRAZAS ? MRN: [facility]:[id number] ? date: 2000 ?Sex: F ?? Assigned Patient Location: FB ?? Current Patient Location: [facility] ?? Accession/Order Number: [id number] ?? Exam Date: 08/06/2025 ??16:27 ?Report Date: [...] somatic motion is documented by ?? the warehouse engineer. ??Cephalic position with longitudinal lie. ??Amniotic fluid ?? 10.8 cm which is between the 5th and 95th percentile ? Cervical length 3.1 cm, closed. ? US/US OB cervical length ?? IMPRESSION: Single live intrauterine with closed cervix ? Impression dictated by: Elias Stanley M.D. ??08/06/2025 5:26 PM ? Dictation Location: [facility]-- ? Electronically authenticated by: [id number] ??Y ?? Date: 08/06/2025 ??17:26 ? Dictated By: ?Elias Stanley M.D. ? Signed By: ?08/07/25 1451 ? DD/ 1726 ? TD/TT: ? Manager Retail: Procedure Note Radiology, Radiologist, - 08/07/[address] [address] Ultrasound Report Signed Patient: RENNY TERRAZAS NMR#: [id number] : 2000Acct:[id number] Age/Sex: 24 / FADM Date: Loc: [facility] 258-[address]: Jacob Nolen D.O. Ordering Physician: Jacob Nolen D.O. Date of Service: 08/06/25 Procedure(s): US OB cervical length Accession Number(s): [id number] cc: Jacob Nolen D.O.; Geni Piedra M.D. [place] [address] Patient Name: RENNY TERRAZAS MRN: [facility]:[id number] date: 2000 Sex: F Assigned Patient Location: [facility] Current Patient Location: [facility] Accession/Order Number: [id number] Exam Date: 08/06/2025 16:27 Report Date: 08/06/2025 17:26 At the request of: JACOB NOLEN DO Procedure: US OB cervical length OB ULTRASOUND CERVICAL LENGTH INDICATION: Decreased movement x1 day COMPARISON: None FINDINGS: Within the uterus, there is a single live intrauterine with heart rate 134 beats per minutes. somatic motion is documentedby the warehouse engineer. Cephalic position with longitudinal lie. Amniotic fluid 10.8 cm which is between the 5th and 95th percentile Cervical length 3.1 cm, closed. US/US OB cervical length IMPRESSION: Single live intrauterine with closed cervix Impression dictated by: Elias Stanley M.D. 08/06/2025 5:26 PM Dictation Location: [place] [address] Electronically authenticated by: [id number] Y Date: 7:26 Dictated By: Elias Stanley M.D. Signed By:08/07/25 1451 DD/ 1726 TD/TT: Manager Retail: Authorizing ProviderResult TypeResult StatusCorey Tamanna DOCLINISYNC IMAGINGFinal Result from Last 3 Months Additional Health Concerns Active ProblemsNoted DateDiagnosed DateOB Srjbqgmef03/17/2025 Insurance Care Teams Team MemberRelationshipSpecialtyStart DateEnd Date Geni Piedra DO [address] [place] [address] PCP - GeneralInternal Medicine06/07/25 Jacob Nolen DO [address] [place], [place] [phone] Referring PhysicianObstetrics and Gynecology08/08/25
--- OUTSIDE RECORDS SUMMARY | 2025-09-17 18:01 | XMS_ITS | Clinical Summary ---
Author Organization [facility] Address [address], [address] [place] [address] Care Team Providers Care Sports Information Director Name Role Phone Geni Piedra Primary Care [...] without aura and without status migrainosus, not ifrtkiasnmo98/10/6331Wjuqopzijhq32/23/2019 Resolved Problems ProblemNoted DateDiagnosed DateResolved DateLoss of smell Crjfxji693363Poyxhvrlittjris23/11/202007/22/2020Muscle weakness Abdominal painFrequent headaches ports mrblwugo08 Immunizations ImmunizationAdministration DatesNext DueDTaP jenaoxi4901/31/2003,06/20/2002, 02/20/2002,2001DTaP, DAPTACEL, (age 6w-6y), IM, 0.5mL04/26/2007Hep B, ENGERIX-B, RECOMBIVAX-HB, (age - 19y), IM, 0.5mL06/20/2002,2001, 2001Hib PRP-OMP, PEDVAXHIB, (age 2m-6y, Adlt Risk), IM, 0.5mL01/31/2003Hib PRP-T, ACTHIB (age 2m-5y, Adlt Risk), HIBERIX (age 6w-4y, Adlt Risk), IM, 0.5mL 02/20/2002,2001Hib ahtaptw6406/20/2002,02/20/2002,2001Influenza 11/24/2012Influenza Virus Iixkusg8312/12/2013Influenza, FLUARIX, FLULAVAL, FLUZONE (age 6 mo+) and [...] heating?Not hard at all03/24/2024HQ-2 AnswerDate RecordedPHQ-9 Total Dzhmb063Hunger Vital SignAnswerDate RecordedWithin the past 12 months, [...] steady place to sleep or slept in ashelter (including now)?No03/24/2024Food InsecurityAnswerDate RecordedWithin the past 12 months, you worried that your food would run out before you got the money to buymore.1 03/24/2024Within the past 12 months, the food you bought just didn't last and you didn't have money to get more.regnantCommentsUnknownSex and Gender InformationValueDate RecordedSex Assigned at QlofiHpbhvq73/19/2021 10:22 PM EDTLegal BmoJzxqre96/10/2013 10:14 AM ESTGender XksrwnloRaegcn96/19/2021 10:22 PM EDTSexual QjyuacbolmoBgdkthmj61/19/2021 10:22 PM EDT Last Filed Vital Signs Vital SignReadingTime TakenCommentsBlood Hsozzxdh112/6805 7:44 AM EDT Xdoyv17899/10/2024 7:44 AM ANBIovoctdgvlq95.6 ??C (97.9 ??F)03/17/2023 11:29 AM EDTRespiratory Gfse2418 8:27 AM ESTOxygen Wksbqmluew99%03/24/2024 7:44 AM EDTInhaled Oxygen Concentration--Nyvnrs42.7 kg (103 lb)03/24/2024 7:44 AM EDT Gsxung766.1 cm (5' 5 )03/24/2024 7:44 AM EDTBody Mass Index17.14003/24/2024 7:44 AM EDT Plan of Treatment Health MaintenanceDue DateLast DoneCommentsHIV sgmiyr7910/17/2016HPV vaccine (1 - 3-dose series)2016Meningococcal B vaccine (1 of 2 - Standard)2017 Hepatitis C pxuyww5410/17/2019Chlamydia/GC rgzdvi78, 05/01/2020 DTaP/Tdap/Td vaccine (7 - Td or Tdap)/, 04/26/2007, 01/31/2003, Additional history existsDepression Liltmb08/08/2024Flu vaccine (#1)/, 12/12/2013, 11/24/2012COVID-19 Vaccine ( season)2025Pap smear/12/2024, 06/14/2023Hepatitis B khjpxdhWcfgjfzen43/06/2002, 2001, 2001Hib vaccineCompleted 01/31/2003, 06/20/2002, 02/20/2002, Additional history exists Measles,Mumps,Rubella (MMR) zrgowbvNytkiekgukfw72/12/2007, 01/31/2003Polio iprmhmbFtzfdutfa40/12/2007, 06/20/2002, 02/20/2002, Additional history exists Varicella spwuwrkScamkisdt76/12/2007, 01/31/2003Meningococcal (ACWY) vaccine Gndsoihfp27/11/2019Hepatitis A vaccineAged OutNo longer eligible based on patient's age to complete this topicPneumococcal 0-49 years VaccineAged OutNo longer eligible based on patient's age to complete this topic Procedures Procedure NamePriorityDate/TimeAssociated DiagnosisCommentsHM PAP SMEARRoutine 02/14/2025 6:25 AM EDTC.TRACHOMATIS N.GONORRHOEAE GAKRqwyuud36/10/2020 1:00 PM EDT Vaginal irritation from Last 3 Months or Most Recently Relevant to Health Maintenance Results * HM PAP SMEAR (02/14/2025 6:25 AM EDT) Narrative Authorizing ProviderResult TypeResult StatusHistorical Provider MDHEALTH MAINTENANCEFinal Result * C.trachomatis N.gonorrhoeae DNA (06/24/2020 1:00 PM EDT)ComponentValueRef RangeTest MethodAnalysis TimePerformed AtPathologist SignatureSpecimen Description.GPYHQB1506/24/2020 1:00 PM EDTMERCY LABORATORIESC. trachomatis DNA VXAEJSBBYGECTHRH79/10/2020 1:00 PM EDTMERCY LABORATORIESComment: CHLAMYDIA TRACHOMATIS DNA [...] an alternative nucleic acid target. N. gonorrhoeae NTTPZTWKCTQTMIKSPQJ07/10/2020 1:00 PM EDTMERCY LABORATORIES Comment: NEISSERIA GONORRHOEAE [...] / Volume Collection TimeReceived TimeCERVICAL SWAB / Tfiybgc0206/24/2020 1:00 PM EDT 06/24/2020 5:09 PM EDT Narrative Authorizing ProviderResult TypeResult StatusKatmacie Ellington Andrea COWLMAN - CNM MICROBIOLOGY - GENERAL ORDERABLESFinal ResultPerforming OrganizationAddress City/State/ZIP CodePhone Number [facility] [address] [place] [address], [facility] [phone] [facility] [address] [place] [address], [facility] [phone] from Last 3 Months or Most Recently Relevant to Health Maintenance Insurance [address] [place] [id number] Advance Directives * Full Code (Latest Code Status on File) Date ActivatedDate ClnvzdllaurXjvdvrnh91/17/2017 11:44 AM11/02/2017 10:30 PM Care Teams Team MemberRelationshipSpecialtyStart DateEnd Date Geni Piedra DO [address] [place] [phone] [facility]02/03/16
--- OUTSIDE RECORDS SUMMARY | 2025-09-17 18:01 | XMS_ITS | Encounter Summary ---
Author Organization [facility] Address [address] [place] [address] Care Team Providers Care Back Facer Name Role Phone JeromeGeni carias Primary Care Provider [phone] Mitchel Nolen DO Unavailable Encounter Details DateTypeDepartmentCare Team (Latest Contact Info)Mqqpsireecm53/21/2025Clinisync Result Encounter [facility] External Department Unsolicited Mitchel Nolen DO [address] [facility] [address] [place], [place] [id number] Social History Tobacco UseTypesPacks/DayYears UsedDateSmoking Tobacco: NeverAlcohol UseStandard Drinks/WeekCommentsNot Currently0 (1 standard drink = 0.6 oz pure alcohol) caffeine intake: 1 coffee/dayEstimated Date of DeliveryCommentsYes 5Based on last menstrual period of 12/26/2024Sex and Gender Information ValueDate RecordedSex Assigned at BirthNot on fileLegal YbbEzgqnh17/15/2023 6:52 PM EDTGender IdentityNot on fileSexual OrientationNot on fileOccupationIndustry Job Start DateJob End DateNot on fileNot on fileNot on fileNot on filedocumented as of this encounter Plan of Treatment Not on file documented as of this encounter Goals GoalPatient Goal TypeAssociated ProblemsRecent ProgressPatient-Stated?Author Reminders Care PlanOB RemindersAlexandra Lizama RNdocumented as of this encounter Procedures Procedure NamePriorityDate/TimeAssociated DiagnosisCommentsSTREP GP B CULTURE+RXJPAaqgnit04/21/2025 1:40 PM EDT documented in this encounter Results * STREP GP B CULTURE+RFLX (09/04/2025 1:40 [...] at: [facility]TBH[facility]P GP B CULTURE+[id number] [place], [place] [id number] GP B CULTURE+RFLXLab Director: Glenn Ceron PhD, Phone: [phone] (Source)Anatomical Location / Laterality Collection Method / VolumeCollection TimeReceived Time09/04/2025 1:40 PM EDT 09/04/2025 6:43 PM EDT Narrative [facility] - 09/09/2025 4:08 PM EDT Authorizing ProviderResult TypeResult StatusCorey Tamanna DOLAB BLOOD ORDERABLES Final ResultPerforming OrganizationAddressCity/State/ZIP CodePhone Number CLINISYNC TB documented in this encounter Visit Diagnoses Not on filedocumented in this encounter Additional Health Concerns Active ProblemsNoted DateDiagnosed DateOB Oriordcsp20/17/2025 documented as of this encounter Care Teams Team MemberRelationshipSpecialtyStart DateEnd Date Geni Piedra DO [address] [place] [address] PCP - GeneralInternal Medicine06/07/25 Mitchel Nolen DO [address] [place] [address] [place] [address] Referring PhysicianObstetrics and Gynecology08/08/25documented as of this encounter
--- OUTSIDE RECORDS SUMMARY | 2025-09-17 18:01 | XMS_ITS | Encounter Summary ---
Author Organization [facility] Address [address] [place] [address] Care Team Providers Care Ham Stripper Name Role Phone JeromeGeni carias Primary Care Provider [phone] Mitchel Nolen DO Unavailable Encounter Details DateTypeDepartmentCare Team (Latest Contact Info)Juocqkrebcw51/22/2025Abstract [facility] [address] [place] [address] [place] [address] Kahtrin Walters MA Social History Tobacco UseTypesPacks/DayYears UsedDateSmoking Tobacco: NeverAlcohol UseStandard Drinks/WeekCommentsNot Currently0 (1 standard drink = 0.6 oz pure alcohol) caffeine intake: 1 coffee/dayEstimated Date of DeliveryCommentsYes 5Based on last menstrual period of 12/26/2024Sex and Gender Information ValueDate RecordedSex Assigned at BirthNot on fileLegal BfsYplwdi90/15/2023 6:52 PM EDTGender IdentityNot on fileSexual OrientationNot on fileOccupationIndustry Job Start DateJob End DateNot on fileNot on fileNot on fileNot on filedocumented as of this encounter Plan of Treatment Not on file documented as of this encounter Goals GoalPatient Goal TypeAssociated ProblemsRecent ProgressPatient-Stated?Author Reminders Care PlanOB Alexandra Hooker RNdocumented as of this encounter Visit Diagnoses Not on filedocumented in this encounter Additional Health Concerns Active ProblemsNoted DateDiagnosed DateOB Lyhpaifbe23/17/2025 documented as of this encounter Care Teams Team MemberRelationshipSpecialtyStart DateEnd Date Geni Piedra DO [address] [place] [address] PCP - GeneralInternal Medicine06/07/25 Mitchel Nolen DO [address] [facility] [place] [address] Referring PhysicianObstetrics and Gynecology08/08/25documented as of this encounter
[2025-09-17 18:19] VITALS: BP 127/73; PULSE 109
[2025-09-17 18:39] LABS: Glucose Urine UA 250 mg/dL (NEGATIVE)
[2025-09-17 18:45] LABS: Cast Seen? NONE SEEN #/LPF (NONE SEEN); Crystals Seen? None Seen #/HPF (None Seen); Urine Culture Indicated NO
--- NOTE | 2025-09-17 19:19 | PC.NURSE ---
1805 to [facility] c/o ctxs since 1430 after being checked in office, states ctxs irregular every 3-7 minutes apart with pain rating from bad cramps to a 7 on pain scale, denies rupture of membranes-efm applied and ccua obtained
== END 2025-09-17 20:26 | disposition home or self-care (01) ==
PROVIDERS: Admitting Provider Obstetrics & Gynecology; PCP Student in an Organized Health Care Education/Training Program; Visit Provider Obstetrics & Gynecology
DX: O47.1 False labor at or after 37 completed weeks of gestation (principal); Z3A.37 37 weeks gestation of pregnancy
CPT/HCPCS: 36415; 81001; 82948; G0378; G0379

== ENCOUNTER 2025-09-18 02:28 | Inpatient (IN) | payer OTHER, SELFPAY ==
--- OUTSIDE RECORDS SUMMARY | 2025-09-04 12:00 | XMS_ITS | Encounter Summary ---
Author Organization [facility] Address [address] [place] [address] Care Team Providers Care Engagement Specialist Name Role Phone DamionGeni bocanegra Primary Care Provider [phone] Mitchel Nolen DO Unavailable Encounter Details DateTypeDepartmentCare Team (Latest Contact Info)Wtejjigykzg62/21/2025 1:00 PM EDTAncillary Procedure [facility] [address] [place] [address] [place] [address] size inconsistent with dates ([facility] Social History Tobacco UseTypesPacks/DayYears UsedDateSmoking Tobacco: NeverAlcohol UseStandard Drinks/WeekCommentsNot Currently0 (1 standard drink = 0.6 oz pure alcohol) caffeine intake: 1 coffee/dayEstimated Date of DeliveryCommentsYes 5Based on last menstrual period of 12/26/2024Sex and Gender Information ValueDate RecordedSex Assigned at BirthNot on fileLegal LeoUledcz85/15/2023 6:52 PM EDTGender IdentityNot on fileSexual OrientationNot on fileOccupationIndustry Job Start DateJob End DateNot on fileNot on fileNot on fileNot on filedocumented as of this encounter Plan of Treatment Not on file documented as of this encounter Goals GoalPatient Goal TypeAssociated ProblemsRecent ProgressPatient-Stated?Author Reminders Care PlanOB RemindersAlexandra Lizama RNdocumented as of this encounter Procedures Procedure NamePriorityDate/TimeAssociated DiagnosisCommentsUS OB FOLLOW UP TRANSABDOMINAL KARUWWOGVcfedgl10/21/2025 1:24 PM EDT size inconsistent with dates ([facility]) documented in this encounter Results * US OB follow up transabdominal approach (09/04/2025 1:24 PM EDT)Anatomical RegionLateralityModalityBodyUltrasoundSpecimen (Source)Anatomical Location / LateralityCollection Method / VolumeCollection TimeReceived Time09/04/2025 3:51 PM EDT Impressions 09/05/2025 7:08 AM EDT Single, live intrauterine , current sonographic age of 37 weeks and 0 days, with an estimated date of delivery of September 25, 2025 (prior LELE September 25, 2025).. TRANSCRIBED BY: ? ELECTRONICALLY SIGNED BY: Joel Coronado MD Narrative 09/05/2025 7:08 AM EDT FINDINGS: Comparison July 23, 2025. A single, live intrauterine is present with normal cardiac rate of 139 beats per minute. Normal activity and amniotic fluid volume. Amniotic fluid index is 13 cm. ??Morphology is grossly normal. The current sonographic age is 37 weeks and 0 days, based on the following measurements: ?BPD ? 9.1 cm (36 weeks, 5 days) ?Head Circumference ?32.7 cm (37 weeks, 0 days) ?Abdominal Circumference ?32.7 cm (36 weeks, 1 day) ?Femur Length ?7.4 cm (38 weeks, 0 days) ?Presentation ? Cephalic ? Weight (g) by Percentile ?? 71.8 % * (prior 70.0%) These measurements result in an estimated date of delivery of September 25, 2025. ??The current estimated weight is 3019 grams (6 pounds, 10 ounces). ?? Procedure Note Joel Coronado MD - 09/05/2025 FINDINGS: Comparison July 23, 2025. A single, live intrauterine is present with normal cardiacrate of 139 beats per minute. Normal activity and amniotic fluidvolume. Amniotic fluid index is 13 cm. Morphology is grossly normal. Thecurrent sonographic age is 37 weeks and 0 days, based on the followingmeasurements: BPD 9.1 cm (36 weeks, 5 days) Head Circumference 32.7 cm (37 weeks, 0 days) Abdominal Circumference 32.7 cm (36 weeks, 1 day) Femur Length 7.4 cm (38 weeks, 0 days) Presentation Cephalic Weight (g) by Percentile 71.8 % * (prior 70.0%) These measurements result in an estimated date of delivery of September. The current estimated weight is 3019 grams (6 pounds, 10ounces). IMPRESSION: Single, live intrauterine , current sonographic age of 37 weeksand 0 days, with an estimated date of delivery of September 25, 2025 (priorEDD September 25, 2025).. TRANSCRIBED BY: ELECTRONICALLY SIGNED BY: Joel Coronado MD Authorizing ProviderResult TypeResult StatusKristina Audra NPIMG OB US PROCEDURESFinal Result documented in this encounter Visit Diagnoses Diagnosis size inconsistent with dates ([facility]) documented in this encounter Additional Health Concerns Active ProblemsNoted DateDiagnosed DateOB Klgageuru05/17/2025 documented as of this encounter Care Teams Team MemberRelationshipSpecialtyStart DateEnd Date Geni Piedra DO [address] [place] [address] PCP - GeneralInternal Medicine06/07/25 Mitchel Nolen DO [address] [place] [address] [place] [address] Referring PhysicianObstetrics and Gynecology08/08/25documented as of this encounter
--- OUTSIDE RECORDS SUMMARY | 2025-09-04 12:00 | XMS_ITS | Encounter Summary ---
Author Organization [facility] Address [address] [place] [address] Care Team Providers Care Precision Inspector Name Role Phone DamionGeni bocanegra Primary Care Provider [phone] Mitchel Nolen DO Unavailable Encounter Details DateTypeDepartmentCare Team (Latest Contact Info)Jezkfsyzjqg06/21/2025 1:00 PM EDTAncillary Procedure [facility] [address] [place] [address] [place] [address] size inconsistent with dates ([facility]) Social History Tobacco UseTypesPacks/DayYears UsedDateSmoking Tobacco: NeverAlcohol UseStandard Drinks/WeekCommentsNot Currently0 (1 standard drink = 0.6 oz pure alcohol) caffeine intake: 1 coffee/dayEstimated Date of DeliveryCommentsYes 5Based on last menstrual period of 12/26/2024Sex and Gender Information ValueDate RecordedSex Assigned at BirthNot on fileLegal UqnJtzcfp62/15/2023 6:52 PM EDTGender IdentityNot on fileSexual OrientationNot on fileOccupationIndustry Job Start DateJob End DateNot on fileNot on fileNot on fileNot on filedocumented as of this encounter Plan of Treatment Not on file documented as of this encounter Goals GoalPatient Goal TypeAssociated ProblemsRecent ProgressPatient-Stated?Author Reminders Care PlanOB RemindersAlexandra Lizama RNdocumented as of this encounter Procedures Procedure NamePriorityDate/TimeAssociated DiagnosisCommentsUS OB FOLLOW UP TRANSABDOMINAL ROUQALMDHqrrcsx40/21/2025 1:24 PM EDT size inconsistent with dates ([facility]) documented in this encounter Results * US [...] Visit Diagnoses Diagnosis size inconsistent with dates ([facility]) documented in this encounter Additional Health Concerns Active ProblemsNoted DateDiagnosed DateOB Tqrwlvhtw64/17/2025 documented as of this encounter Care Teams Team MemberRelationshipSpecialtyStart DateEnd Date Geni Piedra DO [address] [place] [address] PCP - GeneralInternal Medicine06/07/25 Mitchel Nolen DO [address] [place] [address] [place] [address] Referring PhysicianObstetrics and Gynecology08/08/25documented as of this encounter
--- OUTSIDE RECORDS SUMMARY | 2025-09-04 12:30 | XMS_ITS | Encounter Summary ---
Author Organization [facility] Address [address] [place] [address] Care Team Providers Care Manager Creative Services Name Role Phone DamionGeni bocanegra Primary Care Provider [phone] Mitchel Nolen DO Unavailable Reason for Visit * ReasonCommentsRoutine Visit Encounter Details DateTypeDepartmentCare Team (Latest Contact Info)Anctmjoulpm04/21/2025 1:30 PM EDTRoutine [facility] [address] [place] [phone] Mitchel Nolen DO [address] [place], [facility]11 Third trimester ([facility]); 36 weeks gestation of ([facility]); Exposure to STD Social History Tobacco UseTypesPacks/DayYears UsedDateSmoking Tobacco: NeverAlcohol UseStandard Drinks/WeekCommentsNot Currently0 (1 standard drink = 0.6 oz pure alcohol) caffeine intake: 1 coffee/dayEstimated Date of DeliveryCommentsYes 5Based on last menstrual period of 12/26/2024Sex and Gender Information ValueDate RecordedSex Assigned at BirthNot on fileLegal DyuKmmjhx15/15/2023 6:52 PM EDTGender IdentityNot on fileSexual OrientationNot on fileOccupationIndustry Job Start DateJob End DateNot on fileNot on fileNot on fileNot on filedocumented as of this encounter Last Filed Vital Signs Vital SignReadingTime TakenCommentsBlood Qbgejqes320/7010 1:43 PM EDT Pulse--Temperature--Respiratory Rate--Oxygen Saturation--Inhaled Oxygen Concentration--Qlgzpb64.3 kg (133 lb)09/04/2025 1:43 PM EDTHeight--Body Mass [...] nursing note reviewed. Exam conducted with a mat packer present. Vitals: Estimated body mass index is 22.13 kg/m?? as calculated from the following: Height as of 06/30/21: 5' 5 . Weight as of this encounter: 133 lb. BP: 112/70 Patient's last menstrual period was 12/26/2024. Assessment/Plan ICD-10-CM 1. Third trimester ([facility]) Z34.93 CULTURE, GROUP B STREP WITH SUSCEPTIBLITY CULTURE, GROUP B STREP WITH SUSCEPTIBLITY 2. 36 weeks gestation of ([facility]) Z3A.36 POCT urinalysis dipstick manually resulted 3. [...] this encounter Procedures Procedure NamePriorityDate/TimeAssociated DiagnosisCommentsPOCT URINALYSIS RUURPBOLEuvzrkv46/21/2025 1:49 PM EDT 36 weeks gestation of ([facility]) CULTURE, GROUP B STREP WITH YUFPRHYYWVWGAXzgjzth17/21/2025 1:41 PM EDT Third trimester ([facility]) PAP TEST, WCLWEULEDlfgede05/02/2025 12:00 AM EDTdocumented in this encounter Results [...] Location / LateralityCollection Method / VolumeCollection TimeReceived EzdjZvew34/21/2025 1:41 PM EDT Narrative Authorizing ProviderResult TypeResult StatusCorey Tamanna DOLAB BLOOD ORDERABLES Final ResultPerforming OrganizationAddressCity/State/ZIP CodePhone Number EXTERNAL LAB * PAP TEST, EXTERNAL (02/14/2025 12:00 AM EDT) Narrative Authorizing ProviderResult TypeResult StatusCorey Tamanna DOLAB CYTOLOGY ORDERABLESFinal ResultPerforming OrganizationAddressCity/State/ZIP CodePhone Number EXTERNAL LAB documented in this encounter Visit Diagnoses Diagnosis Third trimester ([facility]) state, incidental 36 weeks gestation of ([facility]) Exposure to STD documented in this encounter Additional Health Concerns Active ProblemsNoted DateDiagnosed DateOB Omnumlfuj30/17/2025 documented as of this encounter Care Teams Team MemberRelationshipSpecialtyStart DateEnd Date Geni Piedra DO [address] [place] [address] PCP - GeneralInternal Medicine06/07/25 Mitchel Nolen DO [address] [facility] [address] [place] [address] Referring PhysicianObstetrics and Gynecology08/08/25documented as of this encounter
--- OUTSIDE RECORDS SUMMARY | 2025-09-04 12:30 | XMS_ITS | Encounter Summary ---
Author Organization [facility] Address [address] [place] [place] [address] Care Team Providers Care Metal Can Inspector Name Role Phone DamionGeni bocanegra Primary Care Provider [phone] Mitchel Nolen DO Unavailable Reason for Visit * ReasonCommentsRoutine Visit Encounter Details DateTypeDepartmentCare Team (Latest Contact Info)Wdxmbcclaez15/21/2025 1:30 PM EDTRoutine [facility] [address] [place] [phone] Mitchel Nolen DO [address] [place], [facility]11 Third trimester ([facility]); 36 weeks gestation of ([facility]); Exposure to STD Social History Tobacco UseTypesPacks/DayYears UsedDateSmoking Tobacco: NeverAlcohol UseStandard Drinks/WeekCommentsNot Currently0 (1 standard drink = 0.6 oz pure alcohol) caffeine intake: 1 coffee/dayEstimated Date of DeliveryCommentsYes 5Based on last menstrual period of 12/26/2024Sex and Gender Information ValueDate RecordedSex Assigned at BirthNot on fileLegal JaqCbeclk89/15/2023 6:52 PM EDTGender IdentityNot on fileSexual OrientationNot on fileOccupationIndustry Job Start DateJob End DateNot on fileNot on fileNot on fileNot on filedocumented as of this encounter Last Filed Vital Signs Vital SignReadingTime TakenCommentsBlood Hoignrxf340/7010 1:43 PM EDT Pulse--Temperature--Respiratory Rate--Oxygen Saturation--Inhaled Oxygen Concentration--Wzgtee03.3 kg (133 lb)09/04/2025 1:43 PM EDTHeight--Body Mass [...] nursing note reviewed. Exam conducted with a quill picking machine operator present. Vitals: Estimated body mass index is 22.13 kg/m?? as calculated from the following: Height as of 06/30/21: 5' 5 . Weight as of this encounter: 133 lb. BP: 112/70 Patient's last menstrual period was 12/26/2024. Assessment/Plan ICD-10-CM 1. Third trimester ([facility]) Z34.93 CULTURE, GROUP B STREP WITH SUSCEPTIBLITY CULTURE, GROUP B STREP WITH SUSCEPTIBLITY 2. 36 weeks gestation of ([facility]) Z3A.36 POCT urinalysis dipstick manually resulted [...] this encounter Procedures Procedure NamePriorityDate/TimeAssociated DiagnosisCommentsPOCT URINALYSIS BFDKQOFHTpbbsmb85/21/2025 1:49 PM EDT 36 weeks gestation of ([facility]) CULTURE, GROUP B STREP WITH EDZBUKUIKMKJQKxdehck84/21/2025 1:41 PM EDT Third trimester ([facility]) PAP TEST, TEWOYIHKCldxysf52/02/2025 12:00 AM EDTdocumented in this encounter Results [...] Location / LateralityCollection Method / VolumeCollection TimeReceived PlzgJeio06/21/2025 1:41 PM EDT Narrative Authorizing ProviderResult TypeResult StatusCorey Tamanna DOLAB BLOOD ORDERABLES Final ResultPerforming OrganizationAddressCity/State/ZIP CodePhone Number EXTERNAL LAB * PAP TEST, EXTERNAL (02/14/2025 12:00 AM EDT) Narrative Authorizing ProviderResult TypeResult StatusCorey Tamanna DOLAB CYTOLOGY ORDERABLESFinal ResultPerforming OrganizationAddressCity/State/ZIP CodePhone Number EXTERNAL LAB documented in this encounter Visit Diagnoses Diagnosis Third trimester ([facility]) state, incidental 36 weeks gestation of ([facility]) Exposure to STD documented in this encounter Additional Health Concerns Active ProblemsNoted DateDiagnosed DateOB Ujthwkdvr79/17/2025 documented as of this encounter Care Teams Team MemberRelationshipSpecialtyStart DateEnd Date Geni Piedra DO [address] [place] [address] PCP - GeneralInternal Medicine06/07/25 Mitchel Nolen DO [address] [place] [address] Referring PhysicianObstetrics and Gynecology08/08/25documented as of this encounter
--- OUTSIDE RECORDS SUMMARY | 2025-09-11 12:20 | XMS_ITS | Encounter Summary ---
Author Organization [facility] Address [address] [place] [address] Care Team Providers Care Lumber Sorter Name Role Phone DamionGeni bocanegra Primary Care Provider [phone] Mitchel Nolen DO Unavailable Reason for Visit * ReasonCommentsRoutine Visit Encounter Details DateTypeDepartmentCare Team (Latest Contact Info)Nkhxowmupqq58/28/2025 1:20 PM EDTRoutine [facility] [address] [place] [address] Mitchel Nolen DO [address] [place], [facility] 37 weeks gestation of ([facility]); Third trimester ([facility]) Social History Tobacco UseTypesPacks/DayYears UsedDateSmoking Tobacco: NeverAlcohol UseStandard Drinks/WeekCommentsNot Currently0 (1 standard drink = 0.6 oz pure alcohol) caffeine intake: 1 coffee/dayEstimated Date of DeliveryCommentsYes 5Based on last menstrual period of 12/26/2024Sex and Gender Information ValueDate RecordedSex Assigned at BirthNot on fileLegal NiyRgrfxt50/15/2023 6:52 PM EDTGender IdentityNot on fileSexual OrientationNot on fileOccupationIndustry Job Start DateJob End DateNot on fileNot on fileNot on fileNot on filedocumented as of this encounter Last Filed Vital Signs Vital SignReadingTime TakenCommentsBlood Zirrannq752/7010/ 1:25 PM EDT Pulse--Temperature--Respiratory Rate--Oxygen Saturation--Inhaled Oxygen Concentration--Cdydho48.7 kg (133 lb 12.8 oz)09/11/2025 1:25 PM EDTHeight--Body Mass Index22.27006/30/2021 12:00 PM EDTdocumented in this encounter Progress Notes * Flavia Zhu NP - 09/11/2025 1:20 PM EDT Reason for Appointment: Patient ID: [...] nursing note reviewed. Exam conducted with a cone machine operator present. Vitals: Estimated body mass index is 22.27 kg/m?? as calculated from the following: Height as of 06/30/21: 5' 5 . Weight as of this encounter: 133 lb 12.8 oz. BP: 110/70 Patient's last menstrual period was 12/26/2024. Assessment/Plan ICD-10-CM 1. 37 weeks gestation of ([facility]) Z3A.37 POCT urinalysis dipstick manually resulted 2. Third trimester ([facility]) Z34.93 POCT urinalysis dipstick manually resulted Return OB: Patient presents today for a routine obstetrics appointment. Patient is currently 37w0d . Patient states she is doing well but has complaints of being tired due to current . Patient has verbalizes frequent movement. labor precautions was discussed/given and patient was instructed to perform kick counts three times a day. Orders Placed This Encounter Procedures POCT urinalysis dipstick manually resulted Follow Up: Patient is to return to office in 1 week for routine OB appointment. Documented by Flavia Zhu NP on behalf of: Mitchel Nolen DO documented in this encounter Plan of Treatment Not on file documented as of this encounter Goals GoalPatient Goal TypeAssociated ProblemsRecent ProgressPatient-Stated?Author Reminders Care PlanOB RemindersAlexandra Lizama RNdocumented as of this encounter Procedures Procedure NamePriorityDate/TimeAssociated DiagnosisCommentsPOCT URINALYSIS WYLTMFYWSpgfsex37/28/2025 1:31 PM EDT 37 weeks gestation of ([facility]) Third trimester ([facility]) documented in this encounter Results * POCT urinalysis dipstick manually resulted (09/11/2025 1:31 PM EDT)Component ValueRef RangeTest MethodAnalysis TimePerformed AtPathologist SignatureColor, UAColorlessClarity, UAClearGlucose, UANegativeNegative - 2000(110) ++++ mg/dL Bilirubin, UANegativeNegative - 4(70) +++ mg/dLKetones, UANegativeNegative - 160(16) ++++ mg/dLSpec Grav, UA1.0201 - 1.03Blood, UANegativeNegative - 50 Zhen/mcLpH, UA6.05 - 9Protein, UANegativeNegative - 2000(20) ++++ mg/dL Urobilinogen, UA1.00.2 - 12 mg/dLLeukocytes, UANegativeNegative - 500+++ Gucci/mcLNitrite, UANegativeNegative - PositiveSpecimen (Source)Anatomical Location / LateralityCollection Method / VolumeCollection TimeReceived Time Urine09/11/2025 1:31 PM EDT Narrative Authorizing ProviderResult TypeResult StatusCorey Tamanna DOPOINT OF CARE TEST ENTER/EDIT ORDERABLESFinal Result documented in this encounter Visit Diagnoses Diagnosis 37 weeks gestation of ([facility]) Third trimester ([facility]) state, incidental documented in this encounter Additional Health Concerns Active ProblemsNoted DateDiagnosed DateOB Wafdyujkh12/17/2025 documented as of this encounter Care Teams Team MemberRelationshipSpecialtyStart DateEnd Date Geni Piedra DO [address] [place] [address] PCP - GeneralInternal Medicine06/07/25 Mitchel Nolen DO [address] [place] [address] Referring PhysicianObstetrics and Gynecology08/08/25documented as of this encounter
--- OUTSIDE RECORDS SUMMARY | 2025-09-11 12:20 | XMS_ITS | Encounter Summary ---
Author Organization [facility] Address [address] [place] [address] Care Team Providers Care Mold Maker Plastic Molds Name Role Phone DamionGeni bocanegra Primary Care Provider [phone] Mitchel Nolen DO Unavailable Reason for Visit * ReasonCommentsRoutine Visit Encounter Details DateTypeDepartmentCare Team (Latest Contact Info)Rwhihvuihvc55/28/2025 1:20 PM EDTRoutine [facility] [address] [place] [phone] Mitchel Nolen DO [address] [place], [facility]11 37 weeks gestation of ([facility]); Third trimester ([facility]) Social History Tobacco UseTypesPacks/DayYears UsedDateSmoking Tobacco: NeverAlcohol UseStandard Drinks/WeekCommentsNot Currently0 (1 standard drink = 0.6 oz pure alcohol) caffeine intake: 1 coffee/dayEstimated Date of DeliveryCommentsYes 5Based on last menstrual period of 12/26/2024Sex and Gender Information ValueDate RecordedSex Assigned at BirthNot on fileLegal XpjUgoidq79/15/2023 6:52 PM EDTGender IdentityNot on fileSexual OrientationNot on fileOccupationIndustry Job Start DateJob End DateNot on fileNot on fileNot on fileNot on filedocumented as of this encounter Last Filed Vital Signs Vital SignReadingTime TakenCommentsBlood Ywjnosiv436/7010/ 1:25 PM EDT Pulse--Temperature--Respiratory Rate--Oxygen Saturation--Inhaled Oxygen Concentration--Sqbuqy06.7 kg (133 lb 12.8 oz)09/11/2025 1:25 PM [...] nursing note reviewed. Exam conducted with a team cdl driver present. Vitals: Estimated body mass index is 22.27 kg/m?? as calculated from the following: Height as of 06/30/21: 5' 5 . Weight as of this encounter: 133 lb 12.8 oz. BP: 110/70 Patient's last menstrual period was 12/26/2024. Assessment/Plan ICD-10-CM 1. 37 weeks gestation of ([facility]) Z3A.37 POCT urinalysis dipstick manually resulted 2. Third trimester ([facility]) Z34.93 POCT urinalysis dipstick manually resulted [...] this encounter Procedures Procedure NamePriorityDate/TimeAssociated DiagnosisCommentsPOCT URINALYSIS PNTHLDNBIdattnq81/28/2025 1:31 PM EDT 37 weeks gestation of ([facility]) Third trimester ([facility]) documented in this encounter Results * [...] Visit Diagnoses Diagnosis 37 weeks gestation of ([facility]) Third trimester ([facility]) state, incidental documented in this encounter Additional Health Concerns Active ProblemsNoted DateDiagnosed DateOB Gvpxswgnp48/17/2025 documented as of this encounter Care Teams Team MemberRelationshipSpecialtyStart DateEnd Date Geni Piedra DO [address] [place] [address] PCP - GeneralInternal Medicine06/07/25 Mitchel Nolen DO [address] [place] [address] Referring PhysicianObstetrics and Gynecology08/08/25documented as of this encounter
--- OUTSIDE RECORDS SUMMARY | 2025-09-17 08:40 | XMS_ITS | Encounter Summary ---
Author Organization [facility] Address [address] [place] [address] Care Team Providers Care Audiometrist Name Role Phone DamionGeni bocanegra Primary Care Provider Mitchel Nolen DO Unavailable Reason for Visit * ReasonCommentsRoutine Visit Encounter Details DateTypeDepartmentCare Team (Latest Contact Info)Vfemtsnzqcs31/03/2025 8:40 AM ESTRoutine [facility] [address] [phone] Mitchel Nolen DO [address] [place]nie [place], [facility]11 Third trimester ([facility]); 37 weeks gestation of ([facility]) Social History Tobacco UseTypesPacks/DayYears UsedDateSmoking Tobacco: NeverAlcohol UseStandard Drinks/WeekCommentsNot Currently0 (1 standard drink = 0.6 oz pure alcohol) caffeine intake: 1 coffee/dayEstimated Date of DeliveryCommentsYes 5Based on last menstrual period of 12/26/2024Sex and Gender Information ValueDate RecordedSex Assigned at BirthNot on fileLegal WvdBqygiz55/15/2023 6:52 PM EDTGender IdentityNot on fileSexual OrientationNot on fileOccupationIndustry Job Start DateJob End DateNot on fileNot on fileNot on fileNot on filedocumented as of this encounter Last Filed Vital Signs Vital SignReadingTime TakenCommentsBlood Nbknjkuy979/6011 8:43 AM EST Pulse--Temperature--Respiratory Rate--Oxygen Saturation--Inhaled Oxygen Concentration--Gacspc73.1 kg (134 lb 12.8 oz)09/17/2025 8:43 AM ESTHeight--Body Mass Index22.4308 12:00 PM EDTdocumented in this encounter Progress Notes * Hedy Nam LPN - 09/17/2025 8:40 AM EST Reason for Appointment: Patient ID: Renny Kowalski is a 24 y.o. female who presents for Routine Visit Patient presents today for Return OB appointment. MEDICATIONS Current Outpatient Medications Medication Instructions magnesium oxide (Mag-Ox) 400 MG tablet 1 tablet, Daily omeprazole (PRILOSEC) 20 mg, Daily ondansetron (ZOFRAN) 4 mg, Every 6 hours [...] nursing note reviewed. Exam conducted with a etl architect present. Vitals: Estimated body mass index is 22.43 kg/m?? as calculated from the following: Height as of 06/30/21: 5' 5 . Weight as of this encounter: 134 lb 12.8 oz. BP: 108/60 Patient's last menstrual period was 12/26/2024. Assessment/Plan ICD-10-CM 1. Third trimester ([facility]) Z34.93 2. 37 weeks gestation of ([facility]) Z3A.37 POCT urinalysis dipstick manually resulted Patient presents today for a routine obstetrics appointment. Patient is currently 37w6d with a Estimated Date of Delivery: 10/02/25. Patinet to sign IOL consent prior to leaving office today. Patient is currently 3cm dilated. RTC in 1 week. Documented by Hedy Nam LPN on behalf of: Mitchel Nolen DO documented in this encounter Plan of Treatment Not on file documented as of this encounter Goals GoalPatient Goal TypeAssociated ProblemsRecent ProgressPatient-Stated?Author Reminders Care PlanOB Alexandra Hooker RNdocumented as of this encounter Procedures Procedure NamePriorityDate/TimeAssociated DiagnosisCommentsPOCT URINALYSIS LCPPVIPTRmyytzv51/03/2025 8:51 AM EST 37 weeks gestation of ([facility]) documented in this encounter Results * POCT urinalysis dipstick manually resulted (09/17/2025 8:51 AM EST)Component ValueRef RangeTest MethodAnalysis TimePerformed AtPathologist SignatureColor, UAYellowClarity, UAClearGlucose, UANegativeNegative - 1999(110) ++++ mg/dL Bilirubin, UANegativeNegative - 4(70) +++ mg/dLKetones, UANegativeNegative - 160(16) ++++ mg/dLSpec Grav, UA1.0151 - 1.03Blood, UANegativeNegative - 50 Zhen/mcLpH, UA6.55 - 9Protein, UANegativeNegative - 2000(20) ++++ mg/dL Urobilinogen, UA1.00.2 - 12 mg/dLLeukocytes, UANegativeNegative - 500+++ Gucci/mcLNitrite, UANegativeNegative - PositiveSpecimen (Source)Anatomical Location / LateralityCollection Method / VolumeCollection TimeReceived Time Urine09/17/2025 8:51 AM EST Narrative Authorizing ProviderResult TypeResult StatusCorey Tamanna DOPOINT OF CARE TEST ENTER/EDIT ORDERABLESFinal Result documented in this encounter Visit Diagnoses Diagnosis Third trimester ([facility] state, incidental 37 weeks gestation of ([facility]) documented in this encounter Additional Health Concerns Active ProblemsNoted DateDiagnosed DateOB Xomrvyghm17/17/2025 documented as of this encounter Care Teams Team MemberRelationshipSpecialtyStart DateEnd Date Geni Piedra DO [address] [place] [phone] PCP - GeneralInternal Medicine06/07/25 Mitchel Nolen DO [address] [place] [address] [place] [address] Referring PhysicianObstetrics and Gynecology08/08/25documented as of this encounter
--- OUTSIDE RECORDS SUMMARY | 2025-09-17 08:40 | XMS_ITS | Encounter Summary ---
Author Organization [facility] Address [address] [place] [address] Care Team Providers Care Smoking Pipes Cleaner Name Role Phone DamionGeni bocanegra Primary Care Provider [phone] Mitchel Nolen DO Unavailable Reason for Visit * ReasonCommentsRoutine Visit Encounter Details DateTypeDepartmentCare Team (Latest Contact Info)Wxblkjwljyk19/03/2025 8:40 AM ESTRoutine [facility] [address] [place] [phone] Mitchel Nolen DO [address] [facility] [address] [place]nie [place], [facility]11 Third trimester ([facility]); 37 weeks gestation of ([facility]) Social History Tobacco UseTypesPacks/DayYears UsedDateSmoking Tobacco: NeverAlcohol UseStandard Drinks/WeekCommentsNot Currently0 (1 standard drink = 0.6 oz pure alcohol) caffeine intake: 1 coffee/dayEstimated Date of DeliveryCommentsYes 5Based on last menstrual period of 12/26/2024Sex and Gender Information ValueDate RecordedSex Assigned at BirthNot on fileLegal YpuVcqtsa00/15/2023 6:52 PM EDTGender IdentityNot on fileSexual OrientationNot on fileOccupationIndustry Job Start DateJob End DateNot on fileNot on fileNot on fileNot on filedocumented as of this encounter Last Filed Vital Signs Vital SignReadingTime TakenCommentsBlood Yomtfcac633/6011 8:43 AM EST Pulse--Temperature--Respiratory Rate--Oxygen Saturation--Inhaled Oxygen Concentration--Yiwpvh27.1 kg (134 lb 12.8 oz)09/17/2025 8:43 AM [...] nursing note reviewed. Exam conducted with a dealer compliance representative present. Vitals: Estimated body mass index is 22.43 kg/m?? as calculated from the following: Height as of 06/30/21: 5' 5 . Weight as of this encounter: 134 lb 12.8 oz. BP: 108/60 Patient's last menstrual period was 12/26/2024. Assessment/Plan ICD-10-CM 1. Third trimester ([facility]) Z34.93 2. 37 weeks gestation of ([facility]) Z3A.37 POCT urinalysis dipstick manually resulted Patient [...] this encounter Procedures Procedure NamePriorityDate/TimeAssociated DiagnosisCommentsPOCT URINALYSIS CODYFDFTVmhsmkq60/03/2025 8:51 AM EST 37 weeks gestation of ([facility]) documented in this encounter Results * POCT [...] this encounter Visit Diagnoses Diagnosis Third trimester ([facility]) state, incidental 37 weeks gestation of ([facility]) documented in this encounter Additional Health Concerns Active ProblemsNoted DateDiagnosed DateOB Vzitmwjow45/17/2025 documented as of this encounter Care Teams Team MemberRelationshipSpecialtyStart DateEnd Date Geni Piedra DO [address] [place] [phone] PCP - GeneralInternal Medicine06/07/25 Mitchel Nolen DO [address] [place] [address] [place] [address] Referring PhysicianObstetrics and Gynecology08/08/25documented as of this encounter
[2025-09-18] VITALS (42 sets, daily range): BP systolic 99–146; BP diastolic 57–94; PULSE 69–155; TEMP 36.6; O2SAT 97–99
--- OUTSIDE RECORDS SUMMARY | 2025-09-18 02:34 | XMS_ITS | Encounter Summary ---
Author Organization [facility] Address [address] [place] [address] Care Team Providers Care Tower Supervisor Name Role Phone JeromeGeni carias Primary Care Provider [phone] Mitchel Nolen DO Unavailable Encounter Details DateTypeDepartmentCare Team (Latest Contact Info)Vragzjxmrny46/21/2025Clinisync Result Encounter [facility] External Department Unsolicited Mitchel Nolen DO [address] [facility] [address] [place] [place], [place] [id number] Social History Tobacco UseTypesPacks/DayYears UsedDateSmoking Tobacco: NeverAlcohol UseStandard Drinks/WeekCommentsNot Currently0 (1 standard drink = 0.6 oz pure alcohol) caffeine intake: 1 coffee/dayEstimated Date of DeliveryCommentsYes 5Based on last menstrual period of 12/26/2024Sex and Gender Information ValueDate RecordedSex Assigned at BirthNot on fileLegal AjhQcfgun86/15/2023 6:52 PM EDTGender IdentityNot on fileSexual OrientationNot on fileOccupationIndustry Job Start DateJob End DateNot on fileNot on fileNot on fileNot on filedocumented as of this encounter Plan of Treatment Not on file documented as of this encounter Goals GoalPatient Goal TypeAssociated ProblemsRecent ProgressPatient-Stated?Author Reminders Care PlanOB RemindersAlexandra Lizama RNdocumented as of this encounter Procedures Procedure NamePriorityDate/TimeAssociated DiagnosisCommentsSTREP GP B CULTURE+PQNLJuwxcwa60/21/2025 1:40 PM EDT documented in this encounter [...] is noted.TBHSTREP GP B CULTURE+RFLX Performed at: [facility]TBHSTREP GP B CULTURE+[id number] [place], [place] [address]SVINPEXR GP B CULTURE+RFLXLab Director: Glenn Ceron PhD, Phone: [phone] (Source)Anatomical Location / Laterality Collection Method / VolumeCollection TimeReceived Time09/04/2025 1:40 PM EDT 09/04/2025 6:43 PM EDT Narrative [facility]IN[facility]YNC - 09/09/2025 4:08 PM EDT Authorizing ProviderResult TypeResult StatusCorey Tamanna DOLAB BLOOD ORDERABLES Final ResultPerforming OrganizationAddressCity/State/ZIP CodePhone Number CLINISYNC TB documented in this encounter Visit Diagnoses Not on filedocumented in this encounter Additional Health Concerns Active ProblemsNoted DateDiagnosed DateOB Njswkoaeu70/17/2025 documented as of this encounter Care Teams Team MemberRelationshipSpecialtyStart DateEnd Date Geni Piedra DO [address] [place] [address] PCP - GeneralInternal Medicine06/07/25 Mitchel Nolen DO [address] [place] [address] [place] [address] Referring PhysicianObstetrics and Gynecology08/08/25documented as of this encounter
--- OUTSIDE RECORDS SUMMARY | 2025-09-18 02:34 | XMS_ITS | Encounter Summary ---
Author Organization [facility] Address [address] [place] [address] Care Team Providers Care Hospice Admitting Clerk Name Role Phone JeromeGeni carias Primary Care Provider [phone] Mitchel Nolen DO Unavailable Encounter Details DateTypeDepartmentCare Team (Latest Contact Info)Opyklwbrtew30/03/2025Telephone [facility] [address] [facility] [place] [address] Mitchel Nolen DO [address] [place], [place] [address] Social History Tobacco UseTypesPacks/DayYears UsedDateSmoking Tobacco: NeverAlcohol UseStandard Drinks/WeekCommentsNot Currently0 (1 standard drink = 0.6 oz pure alcohol) caffeine intake: 1 coffee/dayEstimated Date of DeliveryCommentsYes 5Based on last menstrual period of 12/26/2024Sex and Gender Information ValueDate RecordedSex Assigned at BirthNot on fileLegal UnsNggstp18/15/2023 6:52 PM EDTGender IdentityNot on fileSexual OrientationNot [...] she will need to start heading to [facility] at this time. PVU and called Sydney and gave report to Sydney. documented in this encounter Plan of Treatment Not on file documented as of this encounter Goals GoalPatient Goal TypeAssociated ProblemsRecent ProgressPatient-Stated?Author Reminders Care PlanOB RemindersNoAlexandra Wang RNdocumented as of this encounter Visit Diagnoses Not on filedocumented in this encounter Additional Health Concerns Active ProblemsNoted DateDiagnosed DateOB Zioghacee15/17/2025 documented as of this encounter Care Teams Team MemberRelationshipSpecialtyStart DateEnd Date Geni Piedra DO [address] [place] [address] PCP - GeneralInternal Medicine06/07/25 Mitchel Nolen DO [address] [place] [address] Referring PhysicianObstetrics and Gynecology08/08/25documented as of this encounter
--- OUTSIDE RECORDS SUMMARY | 2025-09-18 02:34 | XMS_ITS | Encounter Summary ---
Author Organization [facility] Address [address] [place] [address] Care Team Providers Care Sign Hanger Name Role Phone JeromeGeni carias Primary Care Provider [phone] Mitchel Nolen DO Unavailable Encounter Details DateTypeDepartmentCare Team (Latest Contact Info)Lqoazpwdbpd44/25/2025Clinisync Result Encounter [facility] External Department Unsolicited Mitchel Nolen DO [address] [facility] [address] [place] [place], [place] [id number] Social History Tobacco UseTypesPacks/DayYears UsedDateSmoking Tobacco: NeverAlcohol UseStandard Drinks/WeekCommentsNot Currently0 (1 standard drink = 0.6 oz pure alcohol) caffeine intake: 1 coffee/dayEstimated Date of DeliveryCommentsYes 5Based on last menstrual period of 12/26/2024Sex and Gender Information ValueDate RecordedSex Assigned at BirthNot on fileLegal YutXkrftb98/15/2023 6:52 PM EDTGender IdentityNot on fileSexual OrientationNot on fileOccupationIndustry Job Start DateJob End DateNot on fileNot on fileNot on fileNot on filedocumented as of this encounter Plan of Treatment Not on file documented as of this encounter Goals GoalPatient Goal TypeAssociated ProblemsRecent ProgressPatient-Stated?Author Reminders Care PlanOB RemindersAlexandra Lizama RNdocumented as of this encounter Procedures Procedure NamePriorityDate/TimeAssociated DiagnosisCommentsTBH URINE MICROSCOPIC VKYKWoqkvwq28/25/2025 9:21 PM EDT TBH UA (CLEAN/CATCH) CHUTE LOADER/MICRO IF IND.Cbxsppo1609/08/2025 9:21 PM EDT documented in this encounter [...] CLINISYNC TBH * (ABNORMAL) TBH UA (CLEAN/CATCH) CHUTE LOADER/MICRO IF IND. (09/08/2025 9:21 PM EDT) ComponentValueRef [...] Additional Health Concerns Active ProblemsNoted DateDiagnosed DateOB Uqscjnlev81/17/2025 documented as of this encounter Care Teams Team MemberRelationshipSpecialtyStart DateEnd Date Geni Piedra DO [address] [place] [address] PCP - GeneralInternal Medicine06/07/25 Mitchel Nolen DO [address] [place] [address] Referring PhysicianObstetrics and Gynecology08/08/25documented as of this encounter
--- OUTSIDE RECORDS SUMMARY | 2025-09-18 02:34 | XMS_ITS | Encounter Summary ---
Author Organization [facility] Address [address] [place] [address] Care Team Providers Care Wrapper Opener Name Role Phone JeromeGeni carias Primary Care Provider [phone] Mitchel Nolen DO Unavailable Encounter Details DateTypeDepartmentCare Team (Latest Contact Info)Rhtqajaqxcd49/03/2025Clinisync Result Encounter [facility] External Department Unsolicited Mitchel Nolen DO [address] [facility] [place] [address] Social History Tobacco UseTypesPacks/DayYears UsedDateSmoking Tobacco: NeverAlcohol UseStandard Drinks/WeekCommentsNot Currently0 (1 standard drink = 0.6 oz pure alcohol) caffeine intake: 1 coffee/dayEstimated Date of DeliveryCommentsYes 5Based on last menstrual period of 12/26/2024Sex and Gender Information ValueDate RecordedSex Assigned at BirthNot on fileLegal WvzAnshdb16/15/2023 6:52 PM EDTGender IdentityNot on fileSexual OrientationNot on fileOccupationIndustry Job Start DateJob End DateNot on fileNot on fileNot on fileNot on filedocumented as of this encounter Plan of Treatment Not on file documented as of this encounter Goals GoalPatient Goal TypeAssociated ProblemsRecent ProgressPatient-Stated?Author Reminders Care PlanOB RemindersAlexandra Lizama RNdocumented as of this encounter Procedures Procedure NamePriorityDate/TimeAssociated DiagnosisCommentsTBH URINE MICROSCOPIC SUNGXstylgf68/03/2025 6:20 PM EST TBH UA (CLEAN/CATCH) LIFE AGENT/MICRO IF IND.Dcmovja0309/17/2025 6:20 PM EST documented in this encounter Results * (ABNORMAL) TBH URINE MICROSCOPIC ONLY (09/17/2025 6:20 PM EST)ComponentValue Ref RangeTest MethodAnalysis TimePerformed AtPathologist SignatureTBH WBC0-2 (A)NONE SEEN #/HPFTBHTBH RBC2-5(A)0 - 2 #/HPFTBHBACTERIA URINETRACE(A)NONE SEEN #/HPFTBHMUCUS URINENONE SEENNONE SEENTBHSQUAMOUS EPITHELIAL CELL URINE MODERATE(A)NONE/RARE #/LPFTBHCRYSTALS SEEN?None SeenNone Seen #/HPFTBHCAST SEEN?NONE SEENNONE SEEN #/LPFTBHURINE CULTURE INDICATEDNOTBHSpecimen (Source) Anatomical Location / LateralityCollection Method / VolumeCollection Time Received Time09/17/2025 6:20 PM EST09/17/2025 6:37 PM EST Narrative CLINISYNC - 09/17/2025 6:45 PM EST Authorizing ProviderResult TypeResult StatusCorey Tamanna DOCLINISYNCFinal Result Performing OrganizationAddressCity/State/ZIP CodePhone Number CLINISYNC TBH * (ABNORMAL) TBH UA (CLEAN/CATCH) LIFE AGENT/MICRO IF IND. (09/17/2025 6:20 PM EST) ComponentValueRef RangeTest MethodAnalysis TimePerformed AtPathologist SignatureCOLOR URINELT. YELLOWYELLOWTBHCLARITY URINECLEARCLEARTBHSPECIFIC GRAVITY URINE1.0101.005 - 1.025TBHPH URINE6.05.0 - 9.0TBHPROTEIN URINENEGATIVE NEG/TRACE mg/dLTBHGLUCOSE URINE UA250(A)NEGATIVE mg/dLTBHBILIRUBIN URINE NEGATIVENEGATIVETBHKETONES URINENEGATIVENEGATIVE mg/dLTBHBLOOD URINEMODERATE (A)NEGATIVETBHNITRITE URINENEGATIVENEGATIVETBHUROBILINOGEN URINE0.20.2 - 1.0 EU/dLTBHLEUKOCYTE ESTERASE URINENEGATIVENEGATIVETBHURINE MICROSCOPIC INDICATED YESTBHSpecimen (Source)Anatomical Location / LateralityCollection Method / VolumeCollection TimeReceived Time09/17/2025 6:20 PM EST09/17/2025 6:37 PM EST Narrative CLINISYNC - 09/17/2025 6:45 PM EST Authorizing ProviderResult TypeResult StatusCorey Tamanna DOCLINISYNCFinal Result Performing OrganizationAddressCity/State/ZIP CodePhone Number CLINISYNC TB documented in this encounter Visit Diagnoses Not on filedocumented in this encounter Additional Health Concerns Active ProblemsNoted DateDiagnosed DateOB Wvqvxhxjl45/17/2025 documented as of this encounter Care Teams Team MemberRelationshipSpecialtyStart DateEnd Date Geni Piedra DO [address] [place] [address] PCP - GeneralInternal Medicine06/07/25 Mitchel Nolen DO [address] [place] [address] [place] [address] Referring PhysicianObstetrics and Gynecology08/08/25documented as of this encounter
--- OUTSIDE RECORDS SUMMARY | 2025-09-18 02:34 | XMS_ITS | Encounter Summary ---
Author Organization [facility] Address [address] [place] [address] Care Team Providers Care Hand Kiss Setter Name Role Phone DamionGeni bocanegra Primary Care Provider [phone] Mitchel Nolen DO Unavailable Encounter Details DateTypeDepartmentCare Team (Latest Contact Info)Awxgadifwff58/03/2025Bamboo flowsheet [facility] [address] [facility] [place] [address] Mitchel Nolen DO [address] [facility] [address] [place], [facility] Social History Tobacco UseTypesPacks/DayYears UsedDateSmoking Tobacco: NeverAlcohol UseStandard Drinks/WeekCommentsNot Currently0 (1 standard drink = 0.6 oz pure alcohol) caffeine intake: 1 coffee/dayEstimated Date of DeliveryCommentsYes 5Based on last menstrual period of 12/26/2024Sex and Gender Information ValueDate RecordedSex Assigned at BirthNot on fileLegal OufHmcvoz57/15/2023 6:52 PM EDTGender IdentityNot on fileSexual OrientationNot [...] Additional Health Concerns Active ProblemsNoted DateDiagnosed DateOB Qkzhfbnes08/17/2025 documented as of this encounter Care Teams Team MemberRelationshipSpecialtyStart DateEnd Date Geni Piedra DO [address] [place] [address] PCP - GeneralInternal Medicine06/07/25 Mitchel Nolen DO [address] [facility] [place] [address] Referring PhysicianObstetrics and Gynecology08/08/25documented as of this encounter
--- OUTSIDE RECORDS SUMMARY | 2025-09-18 02:35 | XMS_ITS | Encounter Summary ---
Author Organization [facility] Address [address] [place] [address] Care Team Providers Care Putty Tinter Maker Name Role Phone JeromeGeni carias Primary Care Provider [phone] Mitchel Nolen DO Unavailable Encounter Details DateTypeDepartmentCare Team (Latest Contact Info)Mvxdptucwgf48/22/2025Abstract [facility] [address] [place] [address] [place] [address] Kathrin Walters MA Social History Tobacco UseTypesPacks/DayYears UsedDateSmoking Tobacco: NeverAlcohol UseStandard Drinks/WeekCommentsNot Currently0 (1 standard drink = 0.6 oz pure alcohol) caffeine intake: 1 coffee/dayEstimated Date of DeliveryCommentsYes 5Based on last menstrual period of 12/26/2024Sex and Gender Information ValueDate RecordedSex Assigned at BirthNot on fileLegal TcpGfvtul20/15/2023 6:52 PM EDTGender IdentityNot on fileSexual OrientationNot [...] Additional Health Concerns Active ProblemsNoted DateDiagnosed DateOB Fisayfyxz83/17/2025 documented as of this encounter Care Teams Team MemberRelationshipSpecialtyStart DateEnd Date Geni Piedra DO [address] [place] [address] PCP - GeneralInternal Medicine06/07/25 Mitchel Nolen DO [address] [facility] [place] [address] Referring PhysicianObstetrics and Gynecology08/08/25documented as of this encounter
--- OUTSIDE RECORDS SUMMARY | 2025-09-18 02:35 | XMS_ITS | Clinical Summary ---
Author Organization [facility] Address [address] [facility], [address] [place] [address] Care Team Providers Care Global Security Architect Name Role Phone Geni Piedra Primary Care [...] without aura and without status migrainosus, not pritjxokkke48/10/5899Eagkhlfqrlf66/23/2019 Resolved Problems ProblemNoted DateDiagnosed DateResolved DateLoss of smell Zrdusxm732928Whzfywbweqahbpr52/11/202007/22/2020Muscle weakness Abdominal painFrequent headaches ports Immunizations ImmunizationAdministration DatesNext DueDTaP arxqsrm5901/31/2003,06/20/2002, 02/20/2002,2001DTaP, DAPTACEL, (age 6w-6y), IM, 0.5mL04/26/2007Hep B, ENGERIX-B, RECOMBIVAX-HB, (age - 19y), IM, 0.5mL06/20/2002,2001, 2001Hib PRP-OMP, PEDVAXHIB, (age 2m-6y, Adlt Risk), IM, 0.5mL01/31/2003Hib PRP-T, ACTHIB (age 2m-5y, Adlt Risk), HIBERIX (age 6w-4y, Adlt Risk), IM, 0.5mL 02/20/2002,2001Hib ylclecm7206/20/2002,02/20/2002,2001Influenza 11/24/2012Influenza Virus Kqznlid7612/12/2013Influenza, FLUARIX, FLULAVAL, FLUZONE (age 6 mo+) and [...] heating?Not hard at all03/24/2024HQ-2 AnswerDate RecordedPHQ-9 Total Hpeeq621Hunger Vital SignAnswerDate RecordedWithin the past 12 months, [...] more.regnantCommentsUnknownSex and Gender InformationValueDate RecordedSex Assigned at EizkzZjusul33/19/2021 10:22 PM EDTLegal RztRbafwx50/10/2013 10:14 AM ESTGender KqwwmvwgEtlxic37/19/2021 10:22 PM EDTSexual GxkluwycvivObqfnicv27/19/2021 10:22 PM EDT Last Filed Vital Signs Vital SignReadingTime TakenCommentsBlood Fmixpjhl722/6805 7:44 AM EDT Levkm77192/10/2024 7:44 AM WLGEtjbzhbeheo93.6 ??C (97.9 ??F)03/17/2023 11:29 AM EDTRespiratory Ophx4551 8:27 AM ESTOxygen Bjdisiusit44%03/24/2024 7:44 AM EDTInhaled Oxygen Concentration--Ezoqyy83.7 kg (103 lb)03/24/2024 7:44 AM EDT Lnunhl189.1 cm (5' 5 )03/24/2024 7:44 AM EDTBody Mass Index17.14003/24/2024 7:44 AM EDT Plan of Treatment Health MaintenanceDue DateLast DoneCommentsHIV pcclip1510/17/2016HPV vaccine (1 - 3-dose series)2016Meningococcal B vaccine (1 of 2 - Standard)2017 Hepatitis C fbnlgl2610/17/2019Chlamydia/GC jxtorm65, 05/01/2020 DTaP/Tdap/Td vaccine (7 - Td or Tdap)/, 04/26/2007, 01/31/2003, Additional history existsDepression Vmcjyy62/08/2024Flu vaccine (#1)/, 12/12/2013, 11/24/2012COVID-19 Vaccine ( season)2025Pap smear/12/2024, 06/14/2023Hepatitis B cnswzyeCtvzqtftn07/06/2002, 2001, 2001Hib vaccineCompleted 01/31/2003, 06/20/2002, 02/20/2002, Additional history exists Measles,Mumps,Rubella (MMR) hgqysrcEfyjlrhnomck74/12/2007, 01/31/2003Polio cgiouftFwsyclzgl15/12/2007, 06/20/2002, 02/20/2002, Additional history exists Varicella zkmzusqXyunjzzds86/12/2007, 01/31/2003Meningococcal (ACWY) vaccine Atupfsddw22/11/2019Hepatitis A vaccineAged OutNo longer eligible based on patient's age to complete this topicPneumococcal 0-49 years VaccineAged OutNo longer eligible based on patient's age to complete this topic Procedures Procedure NamePriorityDate/TimeAssociated DiagnosisCommentsHM PAP SMEARRoutine 02/14/2025 6:25 AM EDTC.TRACHOMATIS N.GONORRHOEAE HHNKmatqid42/10/2020 1:00 PM EDT Vaginal irritation from Last 3 Months or Most Recently Relevant to Health Maintenance Results * HM PAP SMEAR (02/14/2025 6:25 AM EDT) Narrative Authorizing ProviderResult TypeResult StatusHistorical Provider MDHEALTH MAINTENANCEFinal Result * C.trachomatis N.gonorrhoeae DNA (06/24/2020 1:00 PM EDT)ComponentValueRef RangeTest MethodAnalysis TimePerformed AtPathologist SignatureSpecimen Description.BQHBAT7206/24/2020 1:00 PM EDTMERCY LABORATORIESC. trachomatis DNA ZQVRQSRQDUMIMUKK24/10/2020 1:00 PM EDTMERCY LABORATORIESComment: CHLAMYDIA TRACHOMATIS DNA [...] an alternative nucleic acid target. N. gonorrhoeae LCIROHHUWRNQVVHHAQX73/10/2020 1:00 PM EDTMERCY LABORATORIES Comment: NEISSERIA GONORRHOEAE [...] / Volume Collection TimeReceived TimeCERVICAL SWAB / Lzsvbuh6206/24/2020 1:00 PM EDT 06/24/2020 5:09 PM EDT Narrative Authorizing ProviderResult TypeResult StatusKatmacie Ellington Andrea STOCK PLAN ADMINISTRATOR - CNM MICROBIOLOGY - GENERAL ORDERABLESFinal ResultPerforming OrganizationAddress City/State/ZIP CodePhone Number [facility] [address] [place] [address], [facility] [phone] [facility] [address] [place] [address], [facility] [phone] from Last 3 Months or Most Recently Relevant to Health Maintenance Insurance [address] [place] [id number] Advance Directives * Full Code (Latest Code Status on File) Date ActivatedDate LufunikrporNwsmkiel39/17/2017 11:44 AM11/02/2017 10:30 PM Care Teams Team MemberRelationshipSpecialtyStart DateEnd Date Geni Piedra DO [address] [place] [address] [facility]02/03/16
--- OUTSIDE RECORDS SUMMARY | 2025-09-18 02:35 | XMS_ITS | Clinical Summary ---
Author Organization [facility] Address [address] [place] [place] [address] Care Team Providers Care Correspondence Clerk Name Role Phone Geni Piedra Primary Care Provider [phone] Jacob Nolen DO Unavailable Allergies No known [...] 20 mg by mouth Daily5Active Encounters DateTypeDepartmentCare FdkfFxtbcakoalt73/03/2025 8:40 AM ESTRoutine [facility] [address] [facility] [place] [address] Jacob Nolen DO Third trimester ([facility]); 37 weeks gestation of ([facility])09/17/2025linisync Result Encounter NOMS External Department Unsolicited Jacob Nolen DO 09/17/2025Telephone [facility] [address] [facility] [facility] [place] [address] Jacob Nolen, DO 09/17/2025amboo flowsheet [facility] [address] [facility] [place] [address] Jacob Nolen, DO 09/11/2025 1:20 PM EDTRoutine [facility] [place] [facility] [address] [place] [address] Jacob Nolen, DO 37 weeks gestation of ([facility]); Third trimester ([facility])09/08/2025linisync Result Encounter NOMS External Department Unsolicited Jacob Nolen, DO 09/05/2025bstract [facility] [address] [facility] [facility] [place] [address] Kathrin Walters MA 09/04/2025 1:30 PM EDTRoutine [facility] [place] [facility] [address] [facility] [place] [address] Jacob Nolen, Third trimester ([facility]); 36 weeks gestation of ([facility]); Exposure to STD09/04/2025 1:00 PM EDTAncillary Procedure [facility] [address] [facility] [place] [address] size inconsistent with dates ([facility])09/04/2025linisync Result Encounter NOMS External Department Unsolicited Jacob Nolen, DO 08/20/2025 1:50 PM EDTRoutine [facility] [place] [facility] [address] [facility] [place] [address] Flavia Zhu, MARCUS Nausea (Primary Dx); Third trimester ([facility]); 33 weeks gestation of ([facility])08/20/20255720Xowswj53/06/2025Bamboo flowsheet [facility] [address] [facility] [place] [address] [phone] Flavia Zhu, MARCUS 08/06/2025 2:20 PM EDTRoutine [facility] [address] [facility] [facility] [place] [address] Jacob Nolen, DO size inconsistent with dates ([facility]) (Primary Dx); Third trimester ([facility]); 31 weeks gestation of ([facility])5Clinisync Result Encounter NOMS External Department Unsolicited Jacob Nolen, DO 5Clinisync Result Encounter NOMS External Department Unsolicited Jacob Nolen, DO 5Bamboo flowsheet [facility] [address] [place] [address] [place] [address] Jacob Nolen, DO 5Abstract [facility] [address] [place] [address] [place] [address] Jacob Nolen, DO 07/23/2025 9:50 AM EDTRoutine [facility] [address] [place] [address] [place] [phone] Flavia Zhu, MARCUS Third trimester ([facility]); 29 weeks gestation of ([facility])07/23/2025 9:00 AM EDTAncillary Procedure [facility] [address] [place] [address] [place] [phone] Size of fetus inconsistent with dates in second trimester ([facility])07/23/2025 Telephone [facility] [address] [place] [address] [place] [phone] Hedy Nam LPN 07/09/2025 9:30 AM EDTRoutine [facility] [address] [facility] [facility] [place] [address] Eva Degroot PA Size of fetus inconsistent with dates in second trimester ([facility]) (Primary Dx); Second trimester ([facility]); 27 weeks gestation of ([facility])07/09/2025amboo flowsheet [facility] [address] [facility] [place] [address] Eva Degroot PA 06/28/2025bstract [facility] [address] [facility] [place] [address] Jacob Nolen DO 06/28/2025Telephone [facility] [address] [place] [address] Maribeth Li LPN from Last 3 Months Family History Medical HistoryRelationNameCommentsNo Known ProblemsDaughterNo Known Problems FatherMelanomaMaternal GrandfatherNo Known ProblemsMotherDiabetesPaternal GrandfatherNo Known ProblemsSisterRelationNameStatusCommentsDaughterFatherAlive Maternal GrandfatherMotherAlivePaternal GrandfatherSisterx1 Social History Tobacco UseTypesPacks/DayYears UsedDateSmoking Tobacco: Never Tobacco Cessation:Counseling Given: Not Answered Alcohol UseStandard Drinks/WeekCommentsNot Currently0 (1 standard drink = 0.6 oz pure alcohol)caffeine intake: 1 coffee/dayEstimated Date of Delivery OpdzrcadUtn12/18/2025Based on last menstrual period of 12/26/2024Sex and Gender InformationValueDate RecordedSex Assigned at BirthNot on fileLegal SexFemale 01/27/2023 6:52 PM EDTGender IdentityNot on fileSexual OrientationNot on file OccupationIndustryJob Start DateJob End DateNot on fileNot on fileNot on fileNot on file Last Filed Vital Signs Vital SignReadingTime TakenCommentsBlood Cxfltiig690/6009/17/2025 8:43 AM EST Pulse--Temperature--Respiratory Rate--Oxygen Saturation--Inhaled Oxygen Concentration--Xbzvrs31.1 kg (134 lb 12.8 oz)09/17/2025 8:43 AM RHWAowoxy682.1 cm (5' 5 )06/30/2021 12:00 PM EDTBody Mass Index22.4308 12:00 PM EDT Plan of Treatment Not on file Goals GoalPatient Goal TypeAssociated ProblemsRecent ProgressPatient-Stated?Author Reminders Care PlanOB RemindersAlexandra Lizama rn surgical Procedure NamePriorityDate/TimeAssociated DiagnosisCommentsTBH URINE MICROSCOPIC JSFFXqkijtp91/03/2025 6:20 PM EST TBH UA (CLEAN/CATCH) SOCIAL GROUP WORKER/MICRO IF IND.Wptliqc8509/17/2025 6:20 PM EST POCT URINALYSIS AJQEFWDSAtxiehm81/03/2025 8:51 AM EST 37 weeks gestation of ([facility]) POCT URINALYSIS FFUNUWLEAgclrua04/28/2025 1:31 PM EDT 37 weeks gestation of ([facility]) Third trimester ([facility]) TBH URINE MICROSCOPIC AYUWRdsuoqf07/25/2025 9:21 PM EDT TBH UA (CLEAN/CATCH) SOCIAL GROUP WORKER/MICRO IF IND.Iritoyy8309/08/2025 9:21 PM EDT POCT URINALYSIS DPYYDIKESbbqzkc29/21/2025 1:49 PM EDT 36 weeks gestation of ([facility]) CULTURE, GROUP B STREP WITH GRPQESWQXMDMBHpuyuup72/21/2025 1:41 PM EDT Third trimester ([facility]) STREP GP B CULTURE+JPYSDkpzcyr45/21/2025 1:40 PM EDT US OB FOLLOW UP TRANSABDOMINAL XLGGBDVZHrrxeaa48/21/2025 1:24 PM EDT size inconsistent with dates ([facility]) POCT URINALYSIS MABDEBLIYqxveyk33/06/2025 1:51 PM EDT Third trimester ([facility]) US OB BPP W NON-DSSUJO2108/06/2025 5:27 PM EDT US OB CERVICAL ZJICQB0808/06/2025 5:26 PM EDT POCT URINALYSIS PFWKQYHTQddmfes57/22/2025 2:43 PM EDT Third trimester ([facility]) POCT URINALYSIS MOUVUKXOAknsnfa49/08/2025 9:27 AM EDT Third trimester ([facility]) US OB FOLLOW UP TRANSABDOMINAL WJUDVXJTOfutfhq38/08/2025 9:18 AM EDT Size of fetus inconsistent with dates in second trimester ([facility]) POCT URINALYSIS MGOBRAZQVslgnry63/25/2025 9:57 AM EDT Second trimester ([facility]) from Last 3 Months Results * (ABNORMAL) [facility] URINE MICROSCOPIC ONLY (09/17/2025 6:20 PM EST) Only the most recent of2 resultswithin the time period is included. ComponentValueRef RangeTest MethodAnalysis TimePerformed AtPathologist Signature [facility] WBC0-2(A)NONE SEEN #/HPFTBHTBH RBC2-5(A)0 - 2 #/HPFTBHBACTERIA URINETRACE(A) NONE SEEN #/HPFTBHMUCUS URINENONE SEENNONE SEENTBHSQUAMOUS EPITHELIAL CELL URINE MODERATE(A)NONE/RARE #/LPFTBHCRYSTALS SEEN?None SeenNone Seen #/HPFTBHCAST SEEN? NONE SEENNONE SEEN #/LPFTBHURINE CULTURE INDICATEDNOTBHSpecimen (Source) Anatomical Location / LateralityCollection Method / VolumeCollection Time Received Time09/17/2025 6:20 PM EST09/17/2025 6:37 PM EST Narrative CLINISYNC - 09/17/2025 6:45 PM EST Authorizing ProviderResult TypeResult StatusCorey Tamanna DOCLINISYNCFinal Result Performing OrganizationAddressCity/State/ZIP CodePhone Number [facility] * (ABNORMAL) [facility] UA (CLEAN/CATCH) SOCIAL GROUP WORKER/MICRO IF IND. (09/17/2025 6:20 PM EST) Only the most recent of2 resultswithin the time period is included. ComponentValueRef RangeTest MethodAnalysis TimePerformed AtPathologist Signature COLOR URINELT. YELLOWYELLOWTBHCLARITY URINECLEARCLEARTBHSPECIFIC GRAVITY URINE 1.0101.005 - 1.025TBHPH URINE6.05.0 - 9.0TBHPROTEIN URINENEGATIVENEG/TRACE mg/dL TBHGLUCOSE URINE UA250(A)NEGATIVE mg/dLTBHBILIRUBIN URINENEGATIVENEGATIVETBH KETONES URINENEGATIVENEGATIVE mg/dLTBHBLOOD URINEMODERATE(A)NEGATIVETBHNITRITE URINENEGATIVENEGATIVETBHUROBILINOGEN URINE0.20.2 - 1.0 EU/dLTBHLEUKOCYTE ESTERASE URINENEGATIVENEGATIVETBHURINE MICROSCOPIC INDICATEDYESTBHSpecimen (Source)Anatomical Location / LateralityCollection Method / VolumeCollection TimeReceived Time09/17/2025 6:20 PM EST09/17/2025 6:37 PM EST Narrative CLIN[facility]NC - 09/17/2025 6:45 PM EST Authorizing ProviderResult TypeResult StatusCorey Tamanna DOCLINISYNCFinal Result Performing OrganizationAddressCity/State/ZIP CodePhone Number JAYMIE [facility] * POCT urinalysis dipstick manually resulted (09/17/2025 8:51 AM EST) Only the most recent of7 resultswithin the time period is included. ComponentValueRef RangeTest MethodAnalysis TimePerformed AtPathologist Signature Color, UAYellowClarity, UAClearGlucose, UANegativeNegative - 1999(110) ++++ mg/dLBilirubin, UANegativeNegative - 4(70) +++ mg/dLKetones, UANegativeNegative - 160(16) ++++ mg/dLSpec Grav, UA1.0151 - 1.03Blood, UANegativeNegative - 50 Zhen/mcLpH, UA6.55 - 9Protein, UANegativeNegative - 2000(20) ++++ mg/dL Urobilinogen, UA1.00.2 - 12 mg/dLLeukocytes, UANegativeNegative - 500+++ Gucci/mcL Nitrite, UANegativeNegative - PositiveSpecimen (Source)Anatomical Location / LateralityCollection Method / VolumeCollection TimeReceived GljmZudab56/03/2025 8:51 AM EST Narrative Authorizing ProviderResult TypeResult StatusCorey Tamanna DOPOINT OF CARE TEST ENTER/EDIT ORDERABLESFinal Result * CULTURE, GROUP B STREP WITH SUSCEPTIBLITY (09/04/2025 1:41 PM EDT)Specimen (Source)Anatomical Location / LateralityCollection Method / VolumeCollection TimeReceived CwtrPgsa56/21/2025 1:41 PM EDT Narrative Authorizing ProviderResult TypeResult [...] is noted.TBHSTREP GP B CULTURE+RFLX Performed at: - [facility] BapchuleTBHSTREP GP B CULTURE+[id number] [place], [place] [id number] GP B CULTURE+RFLXLab Director: Glenn Ceron PhD, Phone: [phone] (Source)Anatomical Location / Laterality Collection Method / VolumeCollection TimeReceived Time09/04/2025 1:40 PM EDT 09/04/2025 6:43 PM EDT Narrative JAYMIE - 09/09/2025 4:08 PM EDT Authorizing ProviderResult TypeResult StatusCorey Tamanna DOLAB BLOOD ORDERABLES Final ResultPerforming OrganizationAddressCity/State/ZIP CodePhone Number [facility] * OB follow up transabdominal approach (09/04/2025 [...] EDT Narrative 08/06/2025 5:30 PM EDT [facility] ?[address] ? [place] [address] ? Ultrasound Report ? Signed ? Patient: RENNY TERRAZAS N ? MR#: [id number] ?? : 2000 ?Acct:[id number] ?? Age/Sex: 24 / F ?ADM Date: ?? Loc: [facility] ??258-1 ? Attending Dr: Jacob Nolen D.O. ? Ordering Physician: Jacob Nolen D.O. ?? Date of Service: 08/06/25 ?? Procedure(s): US OB BPP w non-stress ?? Accession Number(s): [id number] ? cc: Jacob Nolen D.O.; Geni Piedra M.D. ? [facility] ? [address] ? [place] [address] ? Patient Name: ?? RENNY TERRAZAS ? MRN: [facility]:[id number] ? date: 2000 ?Sex: F ?? Assigned Patient Location: [facility] ?? Current Patient Location: ? Accession/Order Number: [id number] ?? Exam Date: 08/06/2025 ??16:27 ?Report Date: [...] Dictation Location: RADIO-PC-29 ? Electronically authenticated by: [id number] ??Y ?? Date: 08/06/2025 ??17:27 ? Dictated By: ?Elias Stanley M.D. ? Signed By: ?08/06/25 1730 ? DD/ 1727 ? TD/TT: ? Beer Still Runner Compounder: Procedure Note Radiology, Radiologist, - 08/06/2025 [place] [address] Ultrasound Report Signed Patient: RENNY TERRAZAS NMR#: [id number] : 2000Acct:[id number] Age/Sex: 24 / FADM Date: [facility]: Jacob Nolen D.O. Ordering Physician: Jacob Nolen D.O. Date of Service: 08/06/25 Procedure(s): US OB BPP w non-stress Accession Number(s): [id number] cc: Jacob Nolen D.O.; Geni Piedra M.D. The [place] [id number] Patient Name: RENNY TERRAZAS MRN: [id number] date: 2000 Sex: F Assigned [facility] Current Patient Location: Accession/Order Number: [id number] Exam Date: 08/06/2025 16:27 Report Date: 08/06/2025 [...] Stanley M.D. 08/06/2025 5:27 PM Dictation Location: [place] [address] Electronically authenticated by: [id number] Y Date: 7:27 Dictated By: Elias Stanley M.D. Signed By:08/06/251729 DD/ 26 TD/TT: Beer Still Runner Compounder: Authorizing ProviderResult TypeResult StatusCorey Tamanna DOCLINISYNC IMAGINGFinal Result * US OB CERVICAL LENGTH (08/06/2025 5:26 PM EDT)Anatomical RegionLaterality ModalityOtherSpecimen (Source)Anatomical Location / LateralityCollection Method / VolumeCollection TimeReceived Time08/06/2025 5:26 PM EDT Narrative 08/07/2025 2:51 PM EDT [facility] ?[address] ? [place] [address] ? Ultrasound Report ? Signed ? Patient: RENNY TERRAZAS ? MR#: [id number] ?? : 2000 ?Acct:[id number] ?? Age/Sex: 24 / F ?ADM Date: ?? Loc: [facility] ??258-1 ? Attending Dr: Jacob Nolen D.O. ? Ordering Physician: Jacob Nolen D.O. ?? Date of Service: 08/06/25 ?? Procedure(s): US OB cervical length ?? Accession Number(s): [id number] ? cc: Jacob Nolen D.O.; Geni Piedra M.D. ? [facility] ? [address] [place] [address] ? [place] [address] ? Patient Name: ?? RENNY TERRAZAS ? MRN: [facility]:[id number] ? date: 2000 ?Sex: F ?? Assigned Patient Location: [facility] ?? Current Patient Location: [facility] ?? Accession/Order Number: [id number] ?? Exam Date: 08/06/2025 ??16:27 ?Report Date: [...] somatic motion is documented by ?? the community assistant. ??Cephalic position with longitudinal lie. ??Amniotic fluid ?? 10.8 cm which is between the 5th and 95th percentile ? Cervical length 3.1 cm, closed. ? US/US OB cervical length ?? IMPRESSION: Single live intrauterine with closed cervix ? Impression dictated by: Elias Stanley M.D. ??08/06/2025 5:26 PM ? Dictation Location: RADIO-PC-29 ? Electronically authenticated by: [id number] ??Y ?? Date: 08/06/2025 ??17:26 ? Dictated By: ?Elias Stanley M.D. ? Signed By: ?09/23/25 1451 ? DD/ ? TD/TT: ? Beer Still Runner Compounder: Procedure Note Radiology, Radiologist, - 08/07/2025 [place] [address] Ultrasound Report Signed Patient: RENNY TERRAZAS NMR#: [id number] : 2000Acct:[id number] Age/Sex: 24 / FADM Date: [facility]: Jacob Nolen D.O. Ordering Physician: Jacob Nolen D.O. Date of Service: 08/06/25 Procedure(s): US OB cervical length Accession Number(s): [id number] cc: Jacob Nolen D.O.; Geni Piedra M.D. The [place] [address] Patient Name: RENNY TERRAZAS MRN: [facility]:[id number] date: 2000 Sex: F Ass[facility] Accession/Order Number: [id number] Exam Date: 08/06/2025 16:27 Report Date: 08/06/2025 17:26 At the request of: JACOB NOLEN DO Procedure: US OB cervical length OB ULTRASOUND CERVICAL LENGTH INDICATION: Decreased movement x1 day COMPARISON: None FINDINGS: Within the uterus, there is a single live intrauterine with heart rate 134 beats per minutes. somatic motion is documentedby the community assistant. Cephalic position with longitudinal lie. Amniotic fluid 10.8 cm which is between the 5th and 95th percentile Cervical length 3.1 cm, closed. US/US OB cervical length IMPRESSION: Single live intrauterine with closed cervix Impression dictated by: Elias Stanley M.D. 08/06/2025 5:26 PM Dictation Location: [place] [address] Electronically authenticated by: [id number] Y Date: 7:26 Dictated By: Elias Stanley M.D. Signed By:08/07/25 1451 DD/ 1726 TD/TT: Beer Still Runner Compounder: Authorizing ProviderResult TypeResult StatusCorey Tamanna DOCLINISYNC IMAGINGFinal Result from Last 3 Months Additional Health Concerns Active ProblemsNoted DateDiagnosed DateOB Bpohftwdz60/17/2025 Insurance Care Teams Team MemberRelationshipSpecialtyStart DateEnd Date Geni Piedra DO [address] [place] [place] [phone] PCP - GeneralInternal Medicine06/07/25 Jacob Nolen DO [address] [place] [address] [place] [address] Referring PhysicianObstetrics and Gynecology08/08/25
[2025-09-18 03:20] LABS: Cannabinoid Screen Urine NEGATIVE (NEGATIVE); Methamphetamines Screen Urine NEGATIVE (NEGATIVE); Tricyclic Antidepressant Urine NEGATIVE (NEGATIVE)
[2025-09-18] MEDS: 0.9 % SODIUM CHLORIDE 1,000 ML 125 ML IV (03:35)
[2025-09-18 03:50] LABS: Hematocrit 38.4 % (36.0-48.0); Hemoglobin 13.2 g/dL (12.0-16.0); Mean Corpuscular HGB Conc 34.4 g/dL (29.9-35.2); Mean Corpuscular Hemoglobin 29.6 pg (26.7-34.0); Mean Corpuscular Volume 86.1 fL (81.0-99.0); Platelet Count 203 10^3/uL (150-450); Red Blood Count 4.46 10^6/uL (4.20-5.40); White Blood Count 12.8 10^3/uL (4.0-11.0)
[2025-09-18] MEDS: ROPIVACAINE HCL/PF 400 MG/200 ML PREMIX 6 MG EPIDURAL (05:00)
[2025-09-18] MEDS: 0.9 % SODIUM CHLORIDE 1,000 ML 1000 ML IV (05:01)
--- NOTE | 2025-09-18 05:09 | PC.NURSE ---
Pt denies having tachycardia. She reports that her anxiety being here is probably why and she did have it jump when she had her last baby but its not typically high
[2025-09-18] MEDS: OXYTOCIN/0.9 % SODIUM CHLORIDE 20 UNITS/1,000 ML PLAST..BAG 125 UNIT IV (10:45)
--- NOTE | 2025-09-18 10:47 | PM.OBPRCVD ---
Procedure Intrapartal events: None Induction method: none Delivery augmentation: rupture of membranes Delivery monitor: external FHT and external uterine Route of delivery: Episiotomy Description: none L&D Laceration Description: none Anesthesia type: Epidural Disposition: floor Delivery date: 09/18/25 Gender: male presentation: vertex Placental delivery description: Spontaneous cord description: 3 Vessels
--- OUTSIDE RECORDS SUMMARY | 2025-09-18 11:35 | XMS_ITS | Encounter Summary ---
Author Organization [facility] Address [address] [place] [address] Care Team Providers Care Cemetery Laborer Name Role Phone JeromeGeni carias Primary Care Provider [phone] Mitchel Nolen DO Unavailable Encounter Details DateTypeDepartmentCare Team (Latest Contact Info)Qpprqqqnbxr38/25/2025Clinisync Result Encounter [facility] External Department Unsolicited Mitchel Nolen DO [address] [place], [place] [phone] Social History Tobacco UseTypesPacks/DayYears UsedDateSmoking Tobacco: NeverAlcohol UseStandard Drinks/WeekCommentsNot Currently0 (1 standard drink = 0.6 oz pure alcohol) caffeine intake: 1 coffee/dayEstimated Date of DeliveryCommentsYes 5Based on last menstrual period of 12/26/2024Sex and Gender Information ValueDate RecordedSex Assigned at BirthNot on fileLegal QmuNcwknh99/15/2023 6:52 PM EDTGender IdentityNot on fileSexual OrientationNot on fileOccupationIndustry Job Start DateJob End DateNot on fileNot on fileNot on fileNot on filedocumented as of this encounter Plan of Treatment Not on file documented as of this encounter Goals GoalPatient Goal TypeAssociated ProblemsRecent ProgressPatient-Stated?Author Reminders Care PlanOB RemindersAlexandra Lizama RNdocumented as of this encounter Procedures Procedure NamePriorityDate/TimeAssociated DiagnosisCommentsTBH URINE MICROSCOPIC QTKTDhzfnbu86/25/2025 9:21 PM EDT TB[facility] UA (CLEAN/CATCH) DESKTOP SUPPORT SPECIALIST/MICRO IF IND.Dswpoyx5009/08/2025 9:21 PM EDT documented in this encounter [...] CLINISYNC [facility] * (ABNORMAL) TBH UA (CLEAN/CATCH) DESKTOP SUPPORT SPECIALIST/MICRO IF IND. (09/08/2025 9:21 PM EDT) ComponentValueRef [...] Additional Health Concerns Active ProblemsNoted DateDiagnosed DateOB Movmamndh36/17/2025 documented as of this encounter Care Teams Team MemberRelationshipSpecialtyStart DateEnd Date Geni Piedra DO [address] [place] [phone] PCP - GeneralInternal Medicine06/07/25 Mitchel Nolen DO [address] [place] [address] Referring PhysicianObstetrics and Gynecology08/08/25documented as of this encounter
--- OUTSIDE RECORDS SUMMARY | 2025-09-18 11:35 | XMS_ITS | Encounter Summary ---
Author Organization [facility] Address [address] [place] [address] Care Team Providers Care Rewind Operator Name Role Phone JeromeGeni carias Primary Care Provider Mitchel Nolen DO Unavailable Encounter Details DateTypeDepartmentCare Team (Latest Contact Info)Oquskexopwj35/21/2025Clinisync Result Encounter NOMS External Department Unsolicited Mitchel Nolen DO [address] [facility] [address] [place], [place] [phone] Social History Tobacco UseTypesPacks/DayYears UsedDateSmoking Tobacco: NeverAlcohol UseStandard Drinks/WeekCommentsNot Currently0 (1 standard drink = 0.6 oz pure alcohol) caffeine intake: 1 coffee/dayEstimated Date of DeliveryCommentsYes 5Based on last menstrual period of 12/26/2024Sex and Gender Information ValueDate RecordedSex Assigned at BirthNot on fileLegal MqqRzjqgz10/15/2023 6:52 PM EDTGender IdentityNot on fileSexual OrientationNot on fileOccupationIndustry Job Start DateJob End DateNot on fileNot on fileNot on fileNot on filedocumented as of this encounter Plan of Treatment Not on file documented as of this encounter Goals GoalPatient Goal TypeAssociated ProblemsRecent ProgressPatient-Stated?Author Reminders Care PlanOB RemindersAlexandra Lizama RNdocumented as of this encounter Procedures Procedure NamePriorityDate/TimeAssociated DiagnosisCommentsSTREP GP B CULTURE+CFTHZatpgcq69/21/2025 1:40 PM EDT documented in this encounter [...] is noted.TBHSTREP GP B CULTURE+RFLX Performed at: [facility]URE+[id number] [place], [place] [id number] GP B CULTURE+RFLXLab Director: Glenn Ceron PhD, Phone: [phone] (Source)Anatomical Location / Laterality Collection Method / VolumeCollection TimeReceived Time09/04/2025 1:40 PM EDT 09/04/2025 6:43 PM EDT Narrative CLINISYNC - 09/09/2025 4:08 PM EDT Authorizing ProviderResult TypeResult StatusCorey Tamanna DOLAB BLOOD ORDERABLES Final ResultPerforming OrganizationAddressCity/State/ZIP CodePhone Number CLINISYNC TB documented in this encounter Visit Diagnoses Not on filedocumented in this encounter Additional Health Concerns Active ProblemsNoted DateDiagnosed DateOB Nvtvbuqfe69/17/2025 documented as of this encounter Care Teams Team MemberRelationshipSpecialtyStart DateEnd Date Geni Piedra DO [address] [place] [address] PCP - GeneralInternal Medicine06/07/25 Mitchel Nolen DO [address] [place] [address] [place] [address] Referring PhysicianObstetrics and Gynecology08/08/25documented as of this encounter
--- OUTSIDE RECORDS SUMMARY | 2025-09-18 11:35 | XMS_ITS | Encounter Summary ---
Author Organization [facility] Address [address] [place] [address] Care Team Providers Care Market Development Director Name Role Phone DamionGeni bocanegra Primary Care Provider [phone] Mitchel Nolen DO Unavailable Encounter Details DateTypeDepartmentCare Team (Latest Contact Info)Sgxibarzmyo19/03/2025Bamboo flowsheet [facility] [address] [place] [phone] Mitchel Nolen DO [address] [place], [facility] Social History Tobacco UseTypesPacks/DayYears UsedDateSmoking Tobacco: NeverAlcohol UseStandard Drinks/WeekCommentsNot Currently0 (1 standard drink = 0.6 oz pure alcohol) caffeine intake: 1 coffee/dayEstimated Date of DeliveryCommentsYes 5Based on last menstrual period of 12/26/2024Sex and Gender Information ValueDate RecordedSex Assigned at BirthNot on fileLegal JsrGuupgs85/15/2023 6:52 PM EDTGender IdentityNot on fileSexual OrientationNot [...] Additional Health Concerns Active ProblemsNoted DateDiagnosed DateOB Mkttvsmbw11/17/2025 documented as of this encounter Care Teams Team MemberRelationshipSpecialtyStart DateEnd Date Geni Piedra DO [address] [place] [phone] PCP - GeneralInternal Medicine06/07/25 Mitchel Nolen DO [address] [address] Referring PhysicianObstetrics and Gynecology08/08/25documented as of this encounter
--- OUTSIDE RECORDS SUMMARY | 2025-09-18 11:35 | XMS_ITS | Encounter Summary ---
Author Organization [facility] Address [address] [place] [address] Care Team Providers Care Game Show Host Name Role Phone JeromeGeni carias Primary Care Provider [phone] Mitchel Nolen DO Unavailable Encounter Details DateTypeDepartmentCare Team (Latest Contact Info)Agdrwqqlkpw04/03/2025Telephone [facility] [address] [facility] [place] [phone] Mitchel Nolen DO [address] [place], [place] [id number] Social History Tobacco UseTypesPacks/DayYears UsedDateSmoking Tobacco: NeverAlcohol UseStandard Drinks/WeekCommentsNot Currently0 (1 standard drink = 0.6 oz pure alcohol) caffeine intake: 1 coffee/dayEstimated Date of DeliveryCommentsYes 5Based on last menstrual period of 12/26/2024Sex and Gender Information ValueDate RecordedSex Assigned at BirthNot on fileLegal AzeGcelke21/15/2023 6:52 PM EDTGender IdentityNot on fileSexual OrientationNot [...] she will need to start heading to [facility] at this time. [facility]U and called Sydney and gave report to Sydney. documented in this encounter Plan of Treatment Not on file documented as of this encounter Goals GoalPatient Goal TypeAssociated ProblemsRecent ProgressPatient-Stated?Author Reminders Care PlanOB RemindersNoAlexandra Wang RNdocumented as of this encounter Visit Diagnoses Not on filedocumented in this encounter Additional Health Concerns Active ProblemsNoted DateDiagnosed DateOB Drmzkoynw14/17/2025 documented as of this encounter Care Teams Team MemberRelationshipSpecialtyStart DateEnd Date Geni Piedra DO [address] [place] [address] PCP - GeneralInternal Medicine06/07/25 Mitchel Nolen DO [address] [place] [address] Referring PhysicianObstetrics and Gynecology08/08/25documented as of this encounter
--- OUTSIDE RECORDS SUMMARY | 2025-09-18 11:35 | XMS_ITS | Clinical Summary ---
Author Organization [facility] Address [address], [address] [place] [address] Care Team Providers Care Director Business Name Role Phone Geni Piedra Primary Care [...] without aura and without status migrainosus, not knaodafbnkv51/10/4030Hitsqwxuzjr57/23/2019 Resolved Problems ProblemNoted DateDiagnosed DateResolved DateLoss of smell [id number]/11/202007/22/2020Muscle weakness Abdominal painFrequent headaches ports wwyvaxgs61 Immunizations ImmunizationAdministration DatesNext DueDTaP ntkrmeh9801/31/2003,06/20/2002, 02/20/2002,2001DTaP, DAPTACEL, (age 6w-6y), IM, 0.5mL04/26/2007Hep B, ENGERIX-B, RECOMBIVAX-HB, (age - 19y), IM, 0.5mL06/20/2002,2001, 2001Hib PRP-OMP, PEDVAXHIB, (age 2m-6y, Adlt Risk), IM, 0.5mL01/31/2003Hib PRP-T, ACTHIB (age 2m-5y, Adlt Risk), HIBERIX (age 6w-4y, Adlt Risk), IM, 0.5mL 02/20/2002,2001Hib bzrmlnh1006/20/2002,02/20/2002,2001Influenza 11/24/2012Influenza Virus Tlccdrz4712/12/2013Influenza, FLUARIX, FLULAVAL, FLUZONE (age 6 mo+) and [...] heating?Not hard at all03/24/2024HQ-2 AnswerDate RecordedPHQ-9 Total Uospa436Hunger Vital SignAnswerDate RecordedWithin the past 12 months, [...] more.regnantCommentsUnknownSex and Gender InformationValueDate RecordedSex Assigned at RezfjNqnlss16/19/2021 10:22 PM EDTLegal QbrJmocnj86/10/2013 10:14 AM ESTGender VfuysdbdUdbphp60/19/2021 10:22 PM EDTSexual LquqjkkgqurSzuhnpvv48/19/2021 10:22 PM EDT Last Filed Vital Signs Vital SignReadingTime TakenCommentsBlood Cyqwyzrf238/6805 7:44 AM EDT Jtric44366/10/2024 7:44 AM EGOEisbuexgtxn61.6 ??C (97.9 ??F)03/17/2023 11:29 AM EDTRespiratory Yfvy2931 8:27 AM ESTOxygen Xsuhljcpjp12%03/24/2024 7:44 AM EDTInhaled Oxygen Concentration--Hgofnj99.7 kg (103 lb)03/24/2024 7:44 AM EDT Vvlywi948.1 cm (5' 5 )03/24/2024 7:44 AM EDTBody Mass Index17.14003/24/2024 7:44 AM EDT Plan of Treatment Health MaintenanceDue DateLast DoneCommentsHIV stsyxh0110/17/2016HPV vaccine (1 - 3-dose series)2016Meningococcal B vaccine (1 of 2 - Standard)2017 Hepatitis C gvzmoh3910/17/2019Chlamydia/GC qccsgo69, 05/01/2020 DTaP/Tdap/Td vaccine (7 - Td or Tdap)/, 04/26/2007, 01/31/2003, Additional history existsDepression Crqrrt08/08/2024Flu vaccine (#1)/, 12/12/2013, 11/24/2012COVID-19 Vaccine ( season)2025Pap smear/12/2024, 06/14/2023Hepatitis B fkqsegwZcdtiayvx16/06/2002, 2001, 2001Hib vaccineCompleted 01/31/2003, 06/20/2002, 02/20/2002, Additional history exists Measles,Mumps,Rubella (MMR) bjxukkkHkcaggvotsxz71/12/2007, 01/31/2003Polio snybpfzDptyhsmaw79/12/2007, 06/20/2002, 02/20/2002, Additional history exists Varicella zfxsmksKzxsdtkyd06/12/2007, 01/31/2003Meningococcal (ACWY) vaccine Xgrvhrwfs62/11/2019Hepatitis A vaccineAged OutNo longer eligible based on patient's age to complete this topicPneumococcal 0-49 years VaccineAged OutNo longer eligible based on patient's age to complete this topic Procedures Procedure NamePriorityDate/TimeAssociated DiagnosisCommentsHM PAP SMEARRoutine 02/14/2025 6:25 AM EDTC.TRACHOMATIS N.GONORRHOEAE WXGIemcbfp12/10/2020 1:00 PM EDT Vaginal irritation from Last 3 Months or Most Recently Relevant to Health Maintenance Results * HM PAP SMEAR (02/14/2025 6:25 AM EDT) Narrative Authorizing ProviderResult TypeResult StatusHistorical Provider MDHEALTH MAINTENANCEFinal Result * C.trachomatis N.gonorrhoeae DNA (06/24/2020 1:00 PM EDT)ComponentValueRef RangeTest MethodAnalysis TimePerformed AtPathologist SignatureSpecimen Description.BNMETF3406/24/2020 1:00 PM EDTMERCY LABORATORIESC. trachomatis DNA VDRFJRMIHMLTSRWV45/10/2020 1:00 PM EDTMERCY LABORATORIESComment: CHLAMYDIA TRACHOMATIS DNA [...] an alternative nucleic acid target. N. gonorrhoeae MTVQWVOKIUADPJCKMXF63/10/2020 1:00 PM EDTMERCY LABORATORIES Comment: NEISSERIA GONORRHOEAE [...] / Volume Collection TimeReceived TimeCERVICAL SWAB / Dpdykay7606/24/2020 1:00 PM EDT 06/24/2020 5:09 PM EDT Narrative Authorizing ProviderResult TypeResult StatusKatmacie Ellington Andrea AUDIT MACHINE OPERATOR - CNM MICROBIOLOGY - GENERAL ORDERABLESFinal ResultPerforming OrganizationAddress City/State/ZIP CodePhone Number [facility] [address] [place] [address], [facility] [phone] [facility] [address] [place] [address], [facility] [phone] from Last 3 Months or Most Recently Relevant to Health Maintenance Insurance [address] [place] [phone] Advance Directives * Full Code (Latest Code Status on File) Date ActivatedDate FdbjfvhisidTfmiiatu64/17/2017 11:44 AM11/02/2017 10:30 PM Care Teams Team MemberRelationshipSpecialtyStart DateEnd Date Geni Piedra DO [address] [place] [phone] [facility]02/03/16
--- OUTSIDE RECORDS SUMMARY | 2025-09-18 11:35 | XMS_ITS | Clinical Summary ---
Author Organization [facility] Address [address] [place] [address] Care Team Providers Care Soil Conservationist Name Role Phone Geni Piedra Primary Care Provider [phone] Jacob Nolen DO Unavailable Allergies No known [...] 20 mg by mouth Daily5Active Encounters DateTypeDepartmentCare LlrlNexomspfujt85/04/2025Clinisync Result Encounter NOMS External Department Unsolicited Jacob Nolen DO 09/17/2025 8:40 AM ESTRoutine [facility] [address] [place] [address] [place] [phone] Jacob Nolen DO Third trimester ([facility]); 37 weeks gestation of ([facility])5Clinisync Result Encounter NOMS External Department Unsolicited Jacob Nolen, DO 09/17/2025Telephone [facility] Tim [facility] [address] Jacob Nolen, DO 09/17/2025amboo flowsheet [facility] [address] [facility] [address] Jacob Nolen, DO 09/11/2025 1:20 PM EDTRoutine [facility] Tim [facility] [address] Jacob Nolen, DO 37 weeks gestation of ([facility]); Third trimester ([facility])09/08/2025linisync Result Encounter NOMS External Department Unsolicited Jacob Nolen, DO 09/05/2025bstract [facility]ont [facility] [address] Kathrin Walters MA 09/04/2025 1:30 PM EDTRoutine [facility] Dumont [facility] [address] Jacob Nolen, Third trimester ([facility]); 36 weeks gestation of ([facility]); Exposure to STD09/04/2025 1:00 PM EDTAncillary Procedure [facility]ont [facility] [address] size inconsistent with dates ([facility])09/04/2025linisync Result Encounter NOMS External Department Unsolicited Jacob Nolen, DO 08/20/2025 1:50 PM EDTRoutine [facility] [address] Flavia Zhu, MARCUS Nausea (Primary Dx); Third trimester ([facility]); 33 weeks gestation of ([facility])08/20/20258571Lygsrf14/06/2025Bamboo flowsheet [facility] [address] [facility] [address] Flavia Zhu, MARCUS 08/06/2025 2:20 PM EDTRoutine [facility] [address] [facility] [address] Jacob Nolen, DO size inconsistent with dates ([facility]) (Primary Dx); Third trimester ([facility]); 31 weeks gestation of ([facility])08/06/2025linisync Result Encounter NOMS External Department Unsolicited Jacob Nolen, DO 08/06/2025linisync Result Encounter NOMS External Department Unsolicited Jacob Nolen, DO 08/06/2025amboo flowsheet [facility] [address] [facility] [address] Jacob Nolen, DO 07/25/2025bstract [facility] [address] [facility] [address] Jacob Nolen, DO 07/23/2025 9:50 AM EDTRoutine [facility] [address] [facility] [address] Flavia Zhu, MARCUS Third trimester ([facility]); 29 weeks gestation of ([facility])07/23/2025 9:00 AM EDTAncillary Procedure [facility] [address] [facility] [address] Size of fetus inconsistent with dates in second trimester ([facility])07/23/2025 Telephone [facility] [address] [facility] [address] Hedy Nam LPN 07/09/2025 9:30 AM EDTRoutine [facility] [address] [facility] [address] Eva Degroot PA Size of fetus inconsistent with dates in second trimester ([facility]) (Primary Dx); Second trimester ([facility]); 27 weeks gestation of ([facility])07/09/2025amboo flowsheet [facility] [address] [facility] [address] Eva Degroot PA 06/28/2025bstract [facility] [address] [facility] [address] Jacob Nolen DO 06/28/2025Telephone [facility] [address] [facility] [address] Maribeth Li LPN from Last 3 Months Family History Medical HistoryRelationNameCommentsNo Known ProblemsDaughterNo Known Problems FatherMelanomaMaternal GrandfatherNo Known ProblemsMotherDiabetesPaternal GrandfatherNo Known ProblemsSisterRelationNameStatusCommentsDaughterFatherAlive Maternal GrandfatherMotherAlivePaternal GrandfatherSisterx1 Social History Tobacco UseTypesPacks/DayYears UsedDateSmoking Tobacco: Never Tobacco Cessation:Counseling Given: Not Answered Alcohol UseStandard Drinks/WeekCommentsNot Currently0 (1 standard drink = 0.6 oz pure alcohol)caffeine intake: 1 coffee/dayEstimated Date of Delivery XovoxvdkJhz56/18/2025Based on last menstrual period of 12/26/2024Sex and Gender InformationValueDate RecordedSex Assigned at BirthNot on fileLegal SexFemale 01/27/2023 6:52 PM EDTGender IdentityNot on fileSexual OrientationNot on file OccupationIndustryJob Start DateJob End DateNot on fileNot on fileNot on fileNot on file Last Filed Vital Signs Vital SignReadingTime TakenCommentsBlood Lbycogys458/6009/17/2025 8:43 AM EST Pulse--Temperature--Respiratory Rate--Oxygen Saturation--Inhaled Oxygen Concentration--Xtxauh83.1 kg (134 lb 12.8 oz)09/17/2025 8:43 AM VTIBewckn617.1 cm (5' 5 )06/30/2021 12:00 PM EDTBody Mass Index22.4308 12:00 PM EDT Plan of Treatment Not on file Goals GoalPatient Goal TypeAssociated ProblemsRecent ProgressPatient-Stated?Author Reminders Care PlanOB RemindersAlexandra Lizama RN Procedures Procedure NamePriorityDate/TimeAssociated DiagnosisCommentsHMHP CBC WITH PLATELET NO ZVZDNPUNTGZFOxjdupy14/04/2025 3:20 AM EST [facility] DRUG SCREEN RAPID (URINE)Frilenb3209/17/2025 6:20 PM EST [facility] URINE MICROSCOPIC AETHFxsqnkk87/03/2025 6:20 PM EST [facility] UA (CLEAN/CATCH) ASSOCIATE PROFESSOR OF CRIMINAL JUSTICE/MICRO IF IND.Rkxlapo6409/17/2025 6:20 PM EST POCT URINALYSIS BNTHMFALKoeshqz79/03/2025 8:51 AM EST 37 weeks gestation of ([facility]) POCT URINALYSIS OLNFYKPZKkxkfvy97/28/2025 1:31 PM EDT 37 weeks gestation of ([facility]) Third trimester ([facility]) [facility] URINE MICROSCOPIC JJBPEqrstab89/25/2025 9:21 PM EDT [facility] UA (CLEAN/CATCH) ASSOCIATE PROFESSOR OF CRIMINAL JUSTICE/MICRO IF IND.Gwhjjfs6909/08/2025 9:21 PM EDT POCT URINALYSIS MVPVXKHNJkuhzqr30/21/2025 1:49 PM EDT 36 weeks gestation of ([facility]) CULTURE, GROUP B STREP WITH TVINJNQJRGUGFXbwvpxj42/21/2025 1:41 PM EDT Third trimester ([facility]) STREP GP B CULTURE+WGEHIndzxvw86/21/2025 1:40 PM EDT US OB FOLLOW UP TRANSABDOMINAL WIBONDMHLcvwwkr06/21/2025 1:24 PM EDT size inconsistent with dates ([facility]) POCT URINALYSIS NHFKCBQVEnepusu97/06/2025 1:51 PM EDT Third trimester ([facility]) US OB BPP W NON-GTLGOW7508/06/2025 5:27 PM EDT US OB CERVICAL DXJCMQ3208/06/2025 5:26 PM EDT POCT URINALYSIS PAPPHGYULysgdwi78/22/2025 2:43 PM EDT Third trimester ([facility]) POCT URINALYSIS RINRZGTVYgeqown19/08/2025 9:27 AM EDT Third trimester ([facility]) US OB FOLLOW UP TRANSABDOMINAL SYKEUUTYAtoqdbj56/08/2025 9:18 AM EDT Size of fetus inconsistent with dates in second trimester ([facility]) POCT URINALYSIS UZUOHPLQNknylhr42/25/2025 9:57 AM EDT Second trimester ([facility]) from Last 3 Months Results * (ABNORMAL) [facility] CBC WITH PLATELET NO DIFFERENTIAL (09/18/2025 3:20 AM EST) ComponentValueRef RangeTest MethodAnalysis TimePerformed AtPathologist SignatureTBH WBC12.8(H)4.0 - 11.0 10 3/uLTBHTBH RBC4.464.20 - 5.40 10 6/uLTBH TBH HGB13.212.0 - 16.0 g/dLTBHTBH HCT38.436.0 - 48.0 %TBHTBH MCV86.181.0 - 99.0 fLTBHTBH MCH29.626.7 - 34.0 pgTBHTBH MCHC34.429.9 - 35.2 g/dLTBHTBH RDW 13.211.0 - 15.0 %TBHTBH AUY712847 - 450 10 3/uLTBHTBH MPV11.99.5 - 13.5 fLTBH Specimen (Source)Anatomical Location / LateralityCollection Method / Volume Collection TimeReceived Time09/18/2025 3:20 AM EST09/18/2025 3:30 AM EST Narrative [facility]NC - 09/18/2025 3:51 AM EST Authorizing ProviderResult TypeResult StatusCorey Tamanna DOCLINISYNCFinal Result Performing OrganizationAddressCity/State/ZIP CodePhone Number CLINISYNC [facility] * (ABNORMAL) [facility] URINE MICROSCOPIC ONLY (09/17/2025 6:20 PM EST) Only the most recent of2 resultswithin the time period is included. ComponentValueRef RangeTest MethodAnalysis TimePerformed AtPathologist Signature [facility] WBC0-2(A)NONE SEEN #/HPFTBHTBH RBC2-5(A)0 - 2 #/HPFTBHBACTERIA [...] CLINISYNC [facility] * (ABNORMAL) [facility] UA (CLEAN/CATCH) ASSOCIATE PROFESSOR OF CRIMINAL JUSTICE/MICRO IF IND. (09/17/2025 6:20 PM EST) Only [...] Performing OrganizationAddressCity/State/ZIP CodePhone Number [facility]INISYNC [facility] * [facility] DRUG SCREEN RAPID (URINE) (09/17/2025 6:20 PM EST)ComponentValueRef Range Test MethodAnalysis TimePerformed AtPathologist SignatureCANNABINOID SCREEN URINENEGATIVENEGATIVETBHPHENCYCLIDINE SCREEN URINENEGATIVENEGATIVETBHCOCAINE SCREEN URINENEGATIVENEGATIVETBHMETHAMPHETAMINES SCREEN URINENEGATIVENEGATIVE TBHOPIATE SCREEN URINENEGATIVENEGATIVETBHAMPHETAMINE SCREEN URINENEGATIVE NEGATIVETBHBENZODIAZEPINES SCREEN URINENEGATIVENEGATIVETBHTRICYCLIC ANTIDEPRESSANT URINENEGATIVENEGATIVETBHMETHADONE SCREEN URINENEGATIVENEGATIVE TBHBARBITURATES SCREEN URINENEGATIVENEGATIVETBHOXYCODONE SCREEN URINENEGATIVE NEGATIVETBHBUPRENORPHINE SCREEN URINENEGATIVENEGATIVETBHComment: DRUG CLASS TEST SYSTEM CUT-OFF CONCENTRATIONS ARE FOLLOWS: AMP (Amphetamine): 500 ng/mL BAR (Barbiturates): 200 ng/mL BZO (Benzodiazepines): 150 ng/mL BUP (Buprenorphine): 10 ng/mL JACINTO (Cocaine): 150 ng/mL mAMP (Methamphetamine): 500 ng/mL MTD (Methadone): 200 ng/mL OPI (Opiates): 100 ng/mL OXY (Oxycodone): 100 ng/mL PCP (Phencyclidine): 25 ng/mL THC (Cannabinoids): 50 ng/mL TCA (Trycyclic Antidepressants): 300 ng/mL Specimen (Source)Anatomical Location / LateralityCollection Method / Volume Collection TimeReceived Time09/17/2025 6:20 PM EST09/18/2025 3:08 AM EST Narrative [facility] - 09/18/2025 3:20 AM EST Authorizing ProviderResult TypeResult StatusCorey Tamanna DOCLINISYNCFinal Result Performing OrganizationAddressCity/State/ZIP CodePhone Number [facility]NC [facility] * POCT urinalysis dipstick manually resulted (09/17/2025 [...] Location / LateralityCollection Method / VolumeCollection TimeReceived LljnOjqdn19/03/2025 8:51 AM EST Narrative Authorizing ProviderResult TypeResult StatusCorey Tamanna DOPOINT OF CARE TEST ENTER/EDIT ORDERABLESFinal Result * CULTURE, GROUP B STREP WITH SUSCEPTIBLITY (09/04/2025 1:41 PM EDT)Specimen (Source)Anatomical Location / LateralityCollection Method / VolumeCollection TimeReceived PgyiHsgw22/21/2025 1:41 PM EDT Narrative Authorizing ProviderResult TypeResult [...] is noted.TBHSTREP GP B CULTURE+RFLX Performed at: [facility] C[facility]+[id number] [place], [place] [id number] GP B CULTURE+RFLXLab Director: Glenn Ceron PhD, Phone: [phone] (Source)Anatomical Location / Laterality Collection Method / VolumeCollection TimeReceived Time09/04/2025 1:40 PM EDT 09/04/2025 6:43 PM EDT Narrative JAYMIE - 09/09/2025 4:08 PM EDT Authorizing ProviderResult TypeResult StatusCorey Tamanna SORIA BLOOD ORDERABLES Final ResultPerforming OrganizationAddressCity/State/ZIP CodePhone Number JAYMIE [facility] * US OB follow up transabdominal approach [...] EDT Narrative 08/06/2025 5:30 PM EDT [facility] ?[address] ? [place] [address] ? Ultrasound Report ? Signed ? Patient: RENNY TERRAZAS Marshall ? MR#: [id number] ?? : 2000 ?Acct:[id number] ?? Age/Sex: 24 / F ?ADM Date: ?? Loc: [facility] ??258-1 ? Attending Dr: Jacob Nolen D.O. ? Ordering Physician: Jacob Nolen D.O. ?? Date of Service: 08/06/25 ?? Procedure(s): US OB BPP w non-stress ?? Accession Number(s): [id number] ? cc: Jacob Nolen D.O.; Geni Piedra M.D. ? [facility] ? [address] ? [place] [address] ? Patient Name: ?? RENNY TERRAZAS ? MRN: [facility]:[id number] ? date: 2000 ?Sex: F ?? Assigned Patient Location: [facility] ?? Current Patient Location: ? Accession/Order Number: [id number] ?? Exam Date: 08/06/2025 ??16:27 ?Report Date: [...] Dictation Location: RADIO-PC-29 ? Electronically authenticated by: [id number] ??Y ?? Date: 08/06/2025 ??17:27 ? Dictated By: ?Elias Stanley M.D. ? Signed By: ?08/06/25 1730 ? DD/ 1727 ? TD/TT: ? Parer: Procedure Note Radiology, Radiologist, - 08/06/2025 [place] [address] Ultrasound Report Signed Patient: RENNY TERRAZAS NMR#: [id number] : 2000Acct:[id number] Age/Sex: Date: Loc: [facility] 258-[address]: Jacob Nolen D.O. Ordering Physician: Jacob Nolen D.O. Date of Service: 08/06/25 Procedure(s): US OB BPP w non-stress Accession Number(s): [id number] cc: Jacob Nolen D.O.; Geni Piedra M.D. The [address] [address] Patient Name: RENNY TERRAZAS MRN: [facility]:[id number] date: 2000 Sex: F Assigned Patient Location: [facility] Current Patient Location: Accession/Order Number: [id number] Exam Date: 08/06/2025 16:27 Report Date: 08/06/2025 [...] Stanley M.D. 08/06/2025 5:27 PM Dictation Location: [place] [address] Electronically authenticated by: [id number] Y Date: 7:27 Dictated By: Elias Stanley M.D. Signed By:08/06/25 1730 DD/ 1727 TD/TT: Parer: Authorizing ProviderResult TypeResult StatusCorey Tamanna DOCLINISYNC IMAGINGFinal Result * US OB CERVICAL LENGTH (08/06/2025 5:26 PM EDT)Anatomical RegionLaterality ModalityOtherSpecimen (Source)Anatomical Location / LateralityCollection Method / VolumeCollection TimeReceived Time08/06/2025 5:26 PM EDT Narrative 08/07/2025 2:51 PM EDT [facility] ?[address] ? [place] [address] ? Ultrasound Report ? Signed ? Patient: RENNY TERRAZAS N ? MR#: [id number] ?? : 2000 ?Acct:[id number] ?? Age/Sex: 24 / F ?ADM Date: ?? Loc: [facility] ??258-1 ? Attending Dr: Jacob Nolen D.O. ? Ordering Physician: Jacob Nolen D.O. ?? Date of Service: 08/06/25 ?? Procedure(s): US OB cervical length ?? Accession Number(s): [id number] ? cc: Jacob Nolen D.O.; Geni Piedra M.D. ? [facility] ? [address] ? [place] [address] ? Patient Name: ?? RENNY TERRAZAS ? MRN: [facility]:[id number] ? date: 2000 ?Sex: F ?? Assigned Patient Location: [facility] ?? Current Patient Location: [facility] ?? Accession/Order Number: [id number] ?? Exam Date: 08/06/2025 ??16:27 ?Report Date: [...] somatic motion is documented by ?? the spool cleaner hand. ??Cephalic position with longitudinal lie. ??Amniotic fluid ?? 10.8 cm which is between the 5th and 95th percentile ? Cervical length 3.1 cm, closed. ? US/US OB cervical length ?? IMPRESSION: Single live intrauterine with closed cervix ? Impression dictated by: Elias Stanley M.D. ??08/06/2025 5:26 PM ? Dictation Location: [facility]-- ? Electronically authenticated by: [id number] ??Y ?? Date: 08/06/2025 ??17:26 ? Dictated By: ?Elias Stanley M.D. ? Signed By: ?08/07/25 1451 ? DD/ 1726 ? TD/TT: ? Parer: Procedure Note Radiology, Radiologist, - 08/07/2025 [place] [address] Ultrasound Report Signed Patient: RENNY TERRAZAS NMR#: [id number] : 2000Acct:[id number] Age/Sex: 24 FADM Date: Loc: [facility] 258-[address]: Jacob Nolen D.O. Ordering Physician: Jacob Nolen D.O. Date of Service: 08/06/25 Procedure(s): US OB cervical length Accession Number(s): [id number] cc: Jacob Nolen D.O.; Geni Piedra M.D. The [place] [id number] Patient Name: RENNY TERRAZAS MRN: [facility]:[id number] date: 2000 Sex: F Assigned Patient Location: [facility] Current Patient Location: [facility] Accession/Order Number: [id number] Exam Date: 08/06/2025 16:27 Report Date: 08/06/2025 17:26 At the request of: JACOB NOLEN DO Procedure: US OB cervical length OB ULTRASOUND CERVICAL LENGTH INDICATION: Decreased movement x1 day COMPARISON: None FINDINGS: Within the uterus, there is a single live intrauterine with heart rate 134 beats per minutes. somatic motion is documentedby the spool cleaner hand. Cephalic position with longitudinal lie. Amniotic fluid 10.8 cm which is between the 5th and 95th percentile Cervical length 3.1 cm, closed. US/US OB cervical length IMPRESSION: Single live intrauterine with closed cervix Impression dictated by: Elias Stanley M.D. 08/06/2025 5:26 PM Dictation Location: [place] [address] Electronically authenticated by: [id number] Y Date: 7:26 Dictated By: Elias Stanley M.D. Signed By:08/07/25 1451 DD/ 1726 TD/TT: Parer: Authorizing ProviderResult TypeResult StatusCorey Tamanna DOCLINISYNC IMAGINGFinal Result from Last 3 Months Additional Health Concerns Active ProblemsNoted DateDiagnosed DateOB Fcjmodmod36/17/2025 Insurance Care Teams Team MemberRelationshipSpecialtyStart DateEnd Date Geni Piedra DO [address] [place] [address] PCP - GeneralInternal Medicine06/07/25 Jacob Nolen DO [address] [place] [address] [place] [address] Referring PhysicianObstetrics and Gynecology08/08/25
--- OUTSIDE RECORDS SUMMARY | 2025-09-18 11:35 | XMS_ITS | Encounter Summary ---
Author Organization [facility] Address [address] [place] [address] Care Team Providers Care Calculation Reviewer Name Role Phone JeromeGeni carias Primary Care Provider [phone] Mitchel Nolen DO Unavailable Encounter Details DateTypeDepartmentCare Team (Latest Contact Info)Fyblbuxuhtv96/22/2025Abstract [facility] [address] [place] [address] [place] [address] Kathrin Walters MA Social History Tobacco UseTypesPacks/DayYears UsedDateSmoking Tobacco: NeverAlcohol UseStandard Drinks/WeekCommentsNot Currently0 (1 standard drink = 0.6 oz pure alcohol) caffeine intake: 1 coffee/dayEstimated Date of DeliveryCommentsYes 5Based on last menstrual period of 12/26/2024Sex and Gender Information ValueDate RecordedSex Assigned at BirthNot on fileLegal XpmEhredb27/15/2023 6:52 PM EDTGender IdentityNot on fileSexual OrientationNot [...] Additional Health Concerns Active ProblemsNoted DateDiagnosed DateOB Xpqjbrwrn95/17/2025 documented as of this encounter Care Teams Team MemberRelationshipSpecialtyStart DateEnd Date Geni Piedra DO [address] [place] [address] PCP - GeneralInternal Medicine06/07/25 Mitchel Nolen DO [address] [facility] [place] [address] Referring PhysicianObstetrics and Gynecology08/08/25documented as of this encounter
--- OUTSIDE RECORDS SUMMARY | 2025-09-18 11:35 | XMS_ITS | Encounter Summary ---
Author Organization [facility] Address [address] [place] [address] Care Team Providers Care Foot And Ankle Surgeon Name Role Phone JeromeGeni carias Primary Care Provider [phone] Mitchel Nolen DO Unavailable Encounter Details DateTypeDepartmentCare Team (Latest Contact Info)Iorklfkmpvr92/04/2025Clinisync Result Encounter NOMS External Department Unsolicited Mitchel Nolen DO [address] [facility] [place] [address] Social History Tobacco UseTypesPacks/DayYears UsedDateSmoking Tobacco: NeverAlcohol UseStandard Drinks/WeekCommentsNot Currently0 (1 standard drink = 0.6 oz pure alcohol) caffeine intake: 1 coffee/dayEstimated Date of DeliveryCommentsYes 5Based on last menstrual period of 12/26/2024Sex and Gender Information ValueDate RecordedSex Assigned at BirthNot on fileLegal UutAdcuqt13/15/2023 6:52 PM EDTGender IdentityNot on fileSexual OrientationNot on fileOccupationIndustry Job Start DateJob End DateNot on fileNot on fileNot on fileNot on filedocumented as of this encounter Plan of Treatment Not on file documented as of this encounter Goals GoalPatient Goal TypeAssociated ProblemsRecent ProgressPatient-Stated?Author Reminders Care PlanOB RemindersAlexandra Lizama RNdocumented as of this encounter Procedures Procedure NamePriorityDate/TimeAssociated DiagnosisCommentsHMHP CBC WITH PLATELET NO FYHIFSDRSPJFMplvcdb81/04/2025 3:20 AM EST documented in this encounter Results * (ABNORMAL) [facility] CBC WITH PLATELET NO DIFFERENTIAL (09/18/2025 3:20 AM EST) ComponentValueRef RangeTest MethodAnalysis TimePerformed AtPathologist SignatureTBH WBC12.8(H)4.0 - 11.0 10 3/uLTBHTBH RBC4.464.20 - 5.40 10 6/uLTBH [facility] HGB13.212.0 - 16.0 g/dLTBHTBH HCT38.436.0 - 48.0 %TBHTBH MCV86.181.0 - 99.0 fLTBHTBH MCH29.626.7 - 34.0 pgTBHTBH MCHC34.429.9 - 35.2 g/dLTBHTBH RDW 13.211.0 - 15.0 %TBHTBH SOV028473 - 450 10 3/uLTBHTBH MPV11.99.5 - 13.5 fLTBH Specimen (Source)Anatomical Location / LateralityCollection Method / Volume Collection TimeReceived Time09/18/2025 3:20 AM EST09/18/2025 3:30 AM EST Narrative [facility] - 09/18/2025 3:51 AM EST Authorizing ProviderResult TypeResult StatusCorey Tamanna DOCLINISYNCFinal Result Performing OrganizationAddressCity/State/ZIP CodePhone Number CLINIS[facility]NC [facility] documented in this encounter Visit Diagnoses Not on filedocumented in this encounter Additional Health Concerns Active ProblemsNoted DateDiagnosed DateOB Bxgxrmcad27/17/2025 documented as of this encounter Care Teams Team MemberRelationshipSpecialtyStart DateEnd Date Geni Piedra DO [address] [place] [address] PCP - GeneralInternal Medicine06/07/25 Mitchel Nolen DO [address] [place] [address] Dr [place], [place] [address] Referring PhysicianObstetrics and Gynecology08/08/25documented as of this encounter
--- OUTSIDE RECORDS SUMMARY | 2025-09-18 11:35 | XMS_ITS | Encounter Summary ---
Author Organization [facility] Address [address] [place] [address] Care Team Providers Care Health Insurance Specialist Name Role Phone JeromeGeni carias Primary Care Provider [phone] Mitchel Nolen DO Unavailable Encounter Details DateTypeDepartmentCare Team (Latest Contact Info)Tljzqgdkhhb31/03/2025Clinisync Result Encounter [facility] Unsolicited Mitchel Nolen DO [address] [place] [address] Social History Tobacco UseTypesPacks/DayYears UsedDateSmoking Tobacco: NeverAlcohol UseStandard Drinks/WeekCommentsNot Currently0 (1 standard drink = 0.6 oz pure alcohol) caffeine intake: 1 coffee/dayEstimated Date of DeliveryCommentsYes 5Based on last menstrual period of 12/26/2024Sex and Gender Information ValueDate RecordedSex Assigned at BirthNot on fileLegal QseMgxdjp22/15/2023 6:52 PM EDTGender IdentityNot on fileSexual OrientationNot on fileOccupationIndustry Job Start DateJob End DateNot on fileNot on fileNot on fileNot on filedocumented as of this encounter Plan of Treatment Not on file documented as of this encounter Goals GoalPatient Goal TypeAssociated ProblemsRecent ProgressPatient-Stated?Author Reminders Care PlanOB RemindersAlexandra Lizama RNdocumented as of this encounter Procedures Procedure NamePriorityDate/TimeAssociated DiagnosisCommentsTBH URINE MICROSCOPIC AEVEUocfszn12/03/2025 6:20 PM EST [facility] UA (CLEAN/CATCH) MEDICAL ACCOUNTING CLERK/MICRO IF IND.Ldkitlj9409/17/2025 6:20 PM EST [facility] DRUG SCREEN RAPID (URINE)Wzkrtdd2309/17/2025 6:20 PM EST documented in this encounter Results * [facility] DRUG SCREEN RAPID (URINE) (09/17/2025 6:20 PM [...] 6:20 PM EST09/17/2025 6:37 PM EST Narrative [facility] - 09/17/2025 6:45 PM EST Authorizing ProviderResult TypeResult StatusCorey Tamanna DOCLINISYNCFinal Result Performing OrganizationAddressCity/State/ZIP CodePhone Number [facility] TB * (ABNORMAL) [facility] UA (CLEAN/CATCH) MEDICAL ACCOUNTING CLERK/MICRO IF IND. (09/17/2025 6:20 PM EST) ComponentValueRef [...] DOCLINISYNCFinal Result Performing OrganizationAddressCity/State/ZIP CodePhone Number [facility] documented in this encounter Visit Diagnoses Not on filedocumented in this encounter Additional Health Concerns Active ProblemsNoted DateDiagnosed DateOB Yquhflqhm92/17/2025 documented as of this encounter Care Teams Team MemberRelationshipSpecialtyStart DateEnd Date Geni Piedra DO [address] [place] [address] PCP - GeneralInternal Medicine06/07/25 Mitchel Nolen DO [address] [place] [address] Referring PhysicianObstetrics and Gynecology08/08/25documented as of this encounter
[2025-09-18] MEDS: IBUPROFEN 600 MG TABLET PO (20:00)
[2025-09-19 06:30] LABS: Hematocrit 35.4 % (36.0-48.0); Hemoglobin 11.3 g/dL (12.0-16.0); Immature Granulocytes Abs Auto 0.07 10^3/uL (0.00-0.03); Immature Granulocytes Pct Auto 0.7 % (0.0-0.5); Lymphocytes Absolute Auto 1.8 10^3/uL (1.2-3.8); Mean Corpuscular HGB Conc 31.9 g/dL (29.9-35.2); Mean Corpuscular Hemoglobin 28.8 pg (26.7-34.0); Mean Corpuscular Volume 90.1 fL (81.0-99.0); Platelet Count 169 10^3/uL (150-450); Red Blood Count 3.93 10^6/uL (4.20-5.40); White Blood Count 9.9 10^3/uL (4.0-11.0)
[2025-09-19 07:35] VITALS: BP 138/67; PULSE 91
[2025-09-19 07:36] VITALS: TEMP 36; TEMP 36.6
[2025-09-19] MEDS: IBUPROFEN 600 MG TABLET PO (07:41)
--- NOTE | 2025-09-19 07:50 | P.OBPN_ITS ---
OB - PN: Subj Subjective Patient comments: no complaints and pain well controlled [place] status: doing well Exam Constitutional Vital Signs, click to edit/add: Last Vital Signs Temp 96.8 F L 09/19/25 07:36 Pulse 91 H 09/19/25 07:35 Resp 16 09/18/25 23:23 BP 138/67 09/19/25 07:35 Pulse Ox 99 09/18/25 04:58 O2 Del Method Room Air 09/18/25 23:25 Documenting provider has reviewed patient's vital signs: yes Common normals: no apparent distress Respiratory Common normals: clear to auscultation bilaterally Cardio Common normals: regular rate and regular rhythm GI Common normals: Normal to inspection, nondistended, normoactive bowel sounds present Extremity Common normals: no clubbing, cyanosis or edema and no calf tenderness Results Labs Labs: Short CBC 09/19/25 Range/Units 06:24 WBC 9.9 (4.0-11.0) 10^3/uL Hgb 11.3 L (12.0-16.0) g/dL Hct 35.4 L (36.0-48.0) % Plt Count 169 (150-450) 10^3/uL OB - PN: A/P Plan - Vaginal Delivery day: 1 Plan: routine care, discharge home and follow up 6 weeks Time Spent with Patient Time: Total time spent is greater than 50% in coordination of care (as documented) at patient's floor/unit and/or counseling patient: Total time spent with greater than 50% in coordination of care (as documented) at patient's floor/unit and/or counseling patient: less than 15 minutes
== END 2025-09-19 14:39 | disposition home or self-care (01) | DRG 807 ==
PROVIDERS: Admitting Provider Obstetrics & Gynecology; PCP Student in an Organized Health Care Education/Training Program; Visit Provider Obstetrics & Gynecology
DX: O80 Encounter for full-term uncomplicated delivery (principal); Z37.0 Single live birth; Z3A.38 38 weeks gestation of pregnancy
CPT/HCPCS: 36415; 51702; 59025; 59050; 59410; 80307; 85025; 85027; 86850; 86900; 86901; J0665; J2300; J2405; J2795